=== PATIENT | male | born 1940 | race Caucasian/White ===

== ENCOUNTER 2018-10-03 15:38 | Outpatient (REF) | payer MEDICARE, BC, SELFPAY ==
[2018-10-03 18:56] LABS: HCT 35.5 % (40.0-50.0); HGB 12.1 g/dL (13.5-17.5); Mean Corp. HGB Concentration 34.1 g/dL (32.0-36.0); Mean Corpuscular Hemoglobin 33.5 pg (27.0-33.0); Mean Corpuscular Volume 98.3 fL (80-95); Mean Platelet Volume 10.4 fL (8.0-11.0); Platelet Count 195 x1000/uL (130-400); RBC 3.61 m/cumm (4.50-6.00); White Blood Cell Count 4.87 k/cumm (4.4-10.8)
[2018-10-03 20:27] LABS: ALT 27 U/L (12-78); AST 29 U/L (15-37); Albumin 4.1 g/dL (3.4-5.0); Alkaline Phosphatase 66 U/L (46-116); Anion Gap 7.9 mmol/L (3-11); BUN 5 mg/dL (7-18); Bilirubin, Total 0.5 mg/dL (0.2-1.0); CO2 28.1 mmol/L (21.0-32.0); CREATININE 0.54 mg/dL (0.70-1.30); Calcium 8.7 mg/dL (8.5-10.1); Chloride 101 mmol/L (98-107); Glucose 89 mg/dL (70-100); Potassium 4.4 mmol/L (3.5-5.1); Sodium 137 mmol/L (136-145); TSH (W/Ref FT4) 1.87 uIU/mL (0.36-3.74); Total Protein 6.9 g/dL (6.4-8.2)
== END 2018-10-03 15:58 ==
LOC: NCHCN 15:38
PROVIDERS: PCP Nurse Practitioner Family; Visit Provider Nurse Practitioner Family
DX: R60.0 Localized edema (principal); I10 Essential (primary) hypertension; R06.09 Other forms of dyspnea
CPT/HCPCS: 80053; 85027; 84443

== ENCOUNTER 2018-10-16 19:08 | Outpatient (REF) | payer MEDICARE, BC, SELFPAY ==
[2018-10-16 19:02] LABS: Anion Gap 9.5 mmol/L (3-11); BUN 12 mg/dL (7-18); CO2 28.5 mmol/L (21.0-32.0); CREATININE 0.64 mg/dL (0.70-1.30); Chloride 99 mmol/L (98-107); Glucose 86 mg/dL (70-100); Potassium 4.1 mmol/L (3.5-5.1); Sodium 137 mmol/L (136-145)
== END 2018-10-16 19:28 ==
LOC: NCHCN 19:08
PROVIDERS: PCP Nurse Practitioner Family; Visit Provider Nurse Practitioner Family
DX: I10 Essential (primary) hypertension (principal); R06.09 Other forms of dyspnea; D64.9 Anemia, unspecified; R60.0 Localized edema
CPT/HCPCS: 80048

== ENCOUNTER 2018-11-14 15:06 | Outpatient (REF) | payer MEDICARE, BC, SELFPAY ==
[2018-11-14 18:50] LABS: Anion Gap 7.2 mmol/L (3-11); BUN 13 mg/dL (7-18); CO2 27.8 mmol/L (21.0-32.0); CREATININE 0.67 mg/dL (0.70-1.30); Calcium 8.9 mg/dL (8.5-10.1); Chloride 104 mmol/L (98-107); Glucose 90 mg/dL (70-100); Potassium 4.3 mmol/L (3.5-5.1); Sodium 139 mmol/L (136-145)
== END 2018-11-14 15:26 ==
LOC: NCHCN 15:06
PROVIDERS: PCP Nurse Practitioner Family; Visit Provider Nurse Practitioner Family
DX: R60.0 Localized edema (principal)
CPT/HCPCS: 80048

== ENCOUNTER 2019-01-09 03:58 | Inpatient (IN) | payer MEDICARE, BC, SELFPAY ==
[2019-01-09] VITALS (39 sets, daily range): BP systolic 96–150; BP diastolic 51–82; PULSE 72–91; RESP 12–36; TEMP 36.1–37.3; O2SAT 92–100
--- NOTE | 2019-01-09 04:14 | ED.GENADUL_ITS ---
Discharge Plan Disposition Patient Disposition: [facility] INPATIENT Condition: Good Discharge Details Chief Complaint: Orthopedic Clinical Impression: Laceration of left index finger, Closed fracture of fibula, proximal, left Primary Care Provider: Kp Tate ED Provider: Shashank Phelan Meds and New Rx's Prescriptions: No Action aspirin 325 MG tablet 325 mg PO DAILY RF: 0 lisinopril 5 MG tablet 5 mg PO DAILY RF: 0 ibuprofen 200 MG capsule 200 mg PO PRN PRNRF: 0 furosemide [Lasix] 20 mg Tablet 40 mg PO DAILY RF: 0 Medical Decision Making Patient presenting to ED with left index finger laceration and left lower extremity pain with inability to ambulate since a fall yesterday around noon. He denies head injury. There was no loss of consciousness. He has no chest pain or shortness of breath. Spine is cleared clinically. Significant edema to the lower extremities makes it difficult to evaluate. He seems to have okay range of motion of the knee and ankle but complains of pain when he tries to weight-bear. Laceration involves the dorsal aspect of the left index finger. It is a linear flap laceration. He is able to hold finger in extension against resistance without pain. Digital block done to the left finger. Wound irrigated out with a large amount of normal saline. No obvious joint or tendon involvement. Because wound has been open for 18+ hours it is close with 4-0 nylon #5 sutures with loose approximation to allow for drainage if infection sets in. Please see procedure note. X-rays ordered initially of left tib-fib, left foot and left hand. After I reviewed the left tib-fib I felt there was likely a proximal fibular head fracture and asked radiology to obtain left knee and left ankle. My review of all these x-rays are negative except for probable non-displaced fibular head fracture. Radiology is preliminary reading all films as negative. On exam of the patient he is tender to palpation with a bruise exactly where I have identified a fracture on x-ray. Patient is placed in a knee immobilizer. Laceration is covered with Xeroform and dressing and placed in splint to prevent him from flexing and disrupting the sutures. He is given a dose of Keflex. He also received tetanus booster. Case discussed with hospitalist. Patient will be admitted for PT eval, Ortho eval, home safety eval. HPI General Mode of arrival: EMS . Date/Time Provider Initiated Documentation: 01/09/19 04:14 . Limitations to Documentation: no limitations . Information obtained by: patient and RN notes reviewed . HPI Narrative: Patient presents to ED with complaint of ankle pain and inability to walk. Patient reports that he fell yesterday around noontime. He dragged himself back to the house. He has been unable to bear weight since. He has significant and chronic pitting edema of both legs so has not noticed swelling. However, anytime he tries to walk he develops pain and is unable to bear weight due to the pain in the ankle. He also sustained a laceration to his left index finger. He does not really know how he did that when he fell. He does not complain of hand pain. He did not strike his head. He had no loss of consciousness. He has no neck or back pain. He has no chest pain or shortness of breath. There was no syncope associated with the event. He has a history of unsteady gait and disequilibrium which is caused him to fall in the past. Related Data Home Medications Medication Instructions Recorded Confirmed aspirin 325 mg PO DAILY 09/30/12 01/09/19 lisinopril 5 mg PO DAILY 09/30/12 01/09/19 ibuprofen 200 mg PO PRN PRN 04/11/15 01/09/19 furosemide [Lasix] 40 mg PO DAILY 01/09/19 01/09/19 Allergies Allergy/AdvReac Type Severity Reaction Status Date / Time No Known Allergies Allergy Unverified 01/09/19 04:11 General Stated Complaint: Orthopedic DELILAH: 3 Review of Systems Narrative: 12/04 Review of Systems completed and is negative except as stated above in HPI (Systems reviewed: Const, Eyes, ENT, Resp, CV, GI, , MSK, Skin, Neuro) [facility] Medical History (Updated 01/09/19 @ 05:19 by Shashank Phelan MD) Hypertension (Chronic) Malignant melanoma (Inactive) Stroke Surgical History S/P hernia repair (Acute) Social History Smoking/Tobacco Use Status: Former Tobacco Use Alcohol Intake: current Alcohol Intake frequency: 3 or more drinks per day Alcohol type: wine and hard liquor Drug use: Never Substance use type: does not use Do you feel safe at home: Yes Do you feel safe in your relationship?: Yes Exam Narrative Exam Narrative: Vitals: Afebrile. Mildly elevated blood pressure otherwise normal vitals normal room air pulse ox. Const: WDWN elderly male in NAD. HEENT: NC/AT. Normal facial exam. Neck: Supple. Trachea midline. No c-spine tenderness. Lungs: Normal respiratory effort. Lungs are clear. No chest wall tenderness. Cor: RRR with systolic murmur. Good radial pulses. GI: Soft. NT/ND. No guarding or rebound. Back: No spinal tenderness. Neuro: A+O x 3. CN II - XII grossly in tact. Normal speech, strength and sensation. Ext: 4+ pitting edema bilateral LE. Normal ROM of the UE without pain. Left index finger with laceration and swelling, dorsal aspect at level of PIP. Able to extend without pain against resistance. Sensation in tact and cap refill in tact. Hip and knees with good ROM. Left ankle with some pain with ROM. No obvious deformity. Skin: Warm and dry. 3 cm lac to left index finger. Course Vital Signs Vital signs: Vital Signs Temperature 97.0 F L 01/09/19 04:00 Pulse 91 H 01/09/19 04:00 Respiratory Rate 20 01/09/19 04:00 Blood Pressure 145/80 H 01/09/19 04:00 Pulse Oximetry 100 01/09/19 04:00 Temperature 97.0 F L 01/09/19 04:00 Temperature Source Skin 01/09/19 04:00 Pulse 91 H 01/09/19 04:00 Respiratory Rate 20 01/09/19 04:00 Respiratory Effort 01/09/19 04:00 Blood Pressure 145/80 H 01/09/19 04:00 Blood Pressure Position Sitting 01/09/19 04:00 Pulse Oximetry 100 01/09/19 04:00 Oxygen Delivery Method Room Air 01/09/19 04:00 Oxygen Flow Rate 0 01/09/19 04:00 Pain Level 0 01/09/19 04:00 Comment 01/09/19 04:00 Procedures Laceration Laceration 1: Site: hand Side (If applicable): left Size (cm): 3 Description: linear Depth: simple, single layer Local Anesthetic: Lidocaine 1% Pre-repair: wound explored, irrigated extensively and deep structures intact Skin layer closed with: nylon Size (cm): 4-0 Number of sutures: 5 Nerve Block Nerve Block 1: Local Anesthetic: Lidocaine 1% Amount of anesthesia used (mL): 2.5 Side: left Nerve Blocks: digital Procedure Successful: Yes Patient Tolerated Procedure: well Complications: none
--- NOTE | 2019-01-09 04:27 | DI.RAD_ITS ---
EXAM: XR ANKLE LT COMPLETE INDICATION: trauma. COMPARISON: XR FOOT LT COMPLETE from 01/09/2019 XR TIB/FIB LT from 01/09/2019 TECHNIQUE: 2D digital imaging was performed. FINDINGS: Soft tissue swelling is seen around both malleoli. No fracture or ankle mortise widening is seen. T here is no talar dome defect. There is a plantar calcaneal spur. Soft tissue swelling is seen over the dorsum of the foot. No fracture or dislocation is seen. IMPRESSION: Soft tissue swelling. No evidence of fracture.
--- NOTE | 2019-01-09 04:27 | DI.RAD_ITS ---
EXAM: XR TIB/FIB LT INDICATION: trauma. COMPARISON: XR KNEE LT 1V from 01/09/2019 TECHNIQUE: 2D digital imaging was performed. FINDINGS: There is a nondisplaced fracture of the proximal fibula. There is adjacent soft tissue swelling. N o additional fractures are identified in tibia and fibula. The ankle is unremarkable as visualized. There is soft tissue swelling around the malleoli. There is no ankle mortise widening. IMPRESSION: Nondisplaced fracture of the proximal fibula.
--- NOTE | 2019-01-09 04:27 | DI.RAD_ITS ---
EXAM: XR HAND LT COMPLETE INDICATION: trauma. COMPARISON: No exams were available for comparison TECHNIQUE: 2D digital imaging was performed. FINDINGS: The fingers are not optimally profiled on the lateral view. There is some soft tissue swelling aroun d the index finger. No fracture, dislocation or foreign body is seen. IMPRESSION: Soft tissue swelling.
--- NOTE | 2019-01-09 04:34 | NUR.NOTE ---
Nursing Note: Patient was incontinent of urine. Wet undergarmets put into bag. Wallet and phone at bedside.
--- NOTE | 2019-01-09 05:33 | DI.RAD_ITS ---
EXAM: XR KNEE LT 1V INDICATION: trauma. COMPARISON: No exams were available for comparison TECHNIQUE: 2D digital imaging was performed. FINDINGS: There is prominent posterior soft tissue swelling at the level of the proximal tibia and fibula. The re is a nondisplaced fracture of the proximal fibula. No tibial or femoral fractures are seen. No j oint effusion is visible. The patella appears intact. Vascular calcifications are incidentally note d. IMPRESSION: Nondisplaced fracture of the proximal fibula.
[2019-01-09] MEDS: Tetanus & Diphtheria Tox,ADULT 0.5 ML VIAL IM (05:50)
--- NOTE | 2019-01-09 06:09 | DI.VRAD_ITS ---
Addendum created by Adam Johnson MD on 01/09/2019 7:14:18 AM EST Faint lucency in the proximal fibula. Faint fracture suspected Initial report created on 01/09/2019 6:09:05 AM EST PROCEDURE INFORMATION: Exam: XR Left Knee Exam date and time: 01/09/2019 5:49 AM Clinical history: 78 years old, male; Left; Patient HX: Knee pain, fell yesterday TECHNIQUE: Imaging protocol: XR Left knee. Views: 1 or 2 views. COMPARISON: CR XR TIB/FIB LT 01/09/2019 5:18 AM FINDINGS: Bones/joints: No acute fracture or dislocation Soft tissues: Vascular calcifications IMPRESSION: No acute fracture noted Dictated and Authenticated by: Adam Johnson MD. Ordering:HEATHER Encarnacion MD
--- NOTE | 2019-01-09 06:09 | DI.VRAD_ITS ---
PROCEDURE INFORMATION: Exam: XR Left Hand Exam date and time: 01/09/2019 5:50 AM Clinical history: 78 years old, male; Injury or trauma; Fall; Initial encounter; Injury date: 01/08/19; Injury details: Left index finger laceration and pain TECHNIQUE: Imaging protocol: XR Left hand. Views: 3 or more views. COMPARISON: No relevant prior studies available. FINDINGS: Bones/joints: No acute fracture or dislocation. Mild degenerative changes Soft tissues: Mild swelling of the second finger IMPRESSION: No acute fracture Mild swelling of the second finger Dictated and Authenticated by: Adam Johnson MD. Ordering:HEATHER Encarnacion MD
--- NOTE | 2019-01-09 06:09 | DI.VRAD_ITS ---
PROCEDURE INFORMATION: Exam: XR Left Tibia and Fibula Exam date and time: 01/09/2019 5:26 AM Clinical history: 78 years old, male; Lower leg; Left; Patient HX: Fell yesterday, pain TECHNIQUE: Imaging protocol: XR Left tibia and fibula. Views: 2 views. COMPARISON: No relevant prior studies available. FINDINGS: Bones/joints: No acute fracture or dislocation Soft tissues: Vascular calcifications IMPRESSION: No acute findings. Dictated and Authenticated by: Adam Johnson MD. Ordering:HEATHER Encarnacion MD
--- NOTE | 2019-01-09 06:09 | DI.VRAD_ITS ---
PROCEDURE INFORMATION: Exam: XR Left Foot Complete Exam date and time: 01/09/2019 5:50 AM Clinical history: 78 years old, male; Foot; Left; Patient HX: Fell yesterday, pain TECHNIQUE: Imaging protocol: XR Left foot. Views: 3 or more views. COMPARISON: No relevant prior studies available. FINDINGS: Bones/joints: No acute fracture or dislocation. Minimal calcaneal spur Soft tissues: Swelling over the dorsum of the foot IMPRESSION: No acute fracture noted Swelling over the dorsum of the foot Dictated and Authenticated by: Adam Johnson MD. Ordering:HEATHER Encarnacion MD
--- NOTE | 2019-01-09 06:11 | DI.VRAD_ITS ---
PROCEDURE INFORMATION: Exam: XR Left Ankle Exam date and time: 01/09/2019 5:49 AM Clinical history: 78 years old, male; Ankle; Left; Patient HX: Fall yesterday and pain TECHNIQUE: Imaging protocol: XR Left ankle. Views: 3 or more views. COMPARISON: CR XR FOOT LT COMPLETE 01/09/2019 5:36 AM FINDINGS: Bones/joints: No acute fracture or dislocation. Mild calcaneal spurring Soft tissues: Moderate/severe swelling IMPRESSION: No acute fracture Moderate/severe swelling Dictated and Authenticated by: Adam Johnson MD. Ordering:HEATHER Encarnacion MD
[2019-01-09] MEDS: Cephalexin 500 MG CAP PO ×3 (06:36→18:25)
--- NOTE | 2019-01-09 06:49 | NUR.NOTE ---
Nursing Note: Report to KEVIN Collier
--- NOTE | 2019-01-09 06:52 | W.PM.HP.N ---
Date of service: 01/09/19 Time of Service: 06:52 Assessment and Plan Assessment and plan (1) Fibula upper end fracture: Start date: 01/08/19 Status: Acute Assessment and plan: This is a 78-year-old gentleman who fell at home the day prior to admission injuring his left knee and left index finger. He lacerated left index finger which was repaired and will be placed on Keflex because of the time it was open prior to repair. Imaging was done and there may be a closed nondisplaced fracture of the proximal fibula but was not read by the radiologist. He has tenderness over the same area and was placed in a knee immobilizer. Consider orthopedic referral if needed but at least have physical therapy for assessment of safe ambulation with assistive device. Qualifiers: Encounter type: initial encounter Fracture morphology: unspecified fracture morphology Fracture type: closed Laterality: left Qualified Code(s): S82.832A - Other fracture of upper and lower end of left fibula, initial encounter for closed fracture (2) Hypertension: Status: Chronic Assessment and plan: Chronically on lisinopril and furosemide and will check for dehydration. He is slightly hypertensive but his pain in the ED. Qualifiers: Hypertension type: essential hypertension Qualified Code(s): I10 - Essential (primary) hypertension (3) Edema: Status: Chronic Assessment and plan: On Lasix chronically with continued pedal edema. Check for dehydration because of the prolonged time he was on the ground follow-up CPK. Qualifiers: Edema type: localized Qualified Code(s): R60.0 - Localized edema (4) Laceration of finger of left hand: Status: Acute Assessment and plan: Repaired in the ED and will be placed on Keflex for prophylaxis. Qualifiers: Encounter type: initial encounter Finger: index finger Damage to nail status: without damage Foreign body presence: without foreign body Qualified Code(s): S61.211A - Laceration without foreign body of left index finger without damage to nail, initial encounter History of Present Illness History of Present Illness Chief Complaint: Mechanical fall outside home injuring left hand and left leg Narrative: This is a 78-year-old gentleman who lives locally alone who fell outside his house at noon the day prior to presentation. He injured his left hand and left leg with a laceration of his left index finger. He was unable to bear weight on his left leg and crawled back to his house and was still not able to walk eventually calling for help and reported to the ED. Denies any injury to his head or loss of consciousness. He had no presyncopal symptoms. He is on lisinopril and Lasix for hypertension and pedal edema. He does have a history of an unsteady gait and disequilibrium but is not on medical therapy for this. He has fallen in the past because of this problem. 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 He is unkempt and is speaking very softly appears to have a dry mouth during our conversation. No labs were performed and is received no IV fluids in the ED. Vital signs have been stable. Also it was slightly up. He is uncomfortable with his left knee pain and is in a knee immobilizer, my exam. He was placed on Keflex because of his laceration of his index finger and having this exposed 4 hours prior to presentation. There were no signs of infection. He has had no fever. Review of Systems Narrative: 13 point review of systems otherwise unrevealing or stable. [facility] Medical History Hypertension (Chronic) Malignant melanoma (Inactive) Stroke Surgical History S/P hernia repair (Acute) Social History Smoking/Tobacco Use Status: Former Tobacco Use Alcohol Intake: current Alcohol Intake frequency: 3 or more drinks per day Alcohol type: wine and hard liquor Drug use: Never Substance use type: does not use Do you feel safe at home: Yes Do you feel safe in your relationship?: Yes Meds Home Medications and Allergies Home Medications Medication Instructions Recorded Confirmed Type aspirin 325 mg PO DAILY 09/30/12 01/09/19 History lisinopril 5 mg PO DAILY 09/30/12 01/09/19 History ibuprofen 200 mg PO PRN PRN 04/11/15 01/09/19 History furosemide [Lasix] 40 mg PO DAILY 01/09/19 01/09/19 History Allergies Allergy/AdvReac Type Severity Reaction Status Date / Time No Known Allergies Allergy Unverified 01/09/19 04:11 Exam Narrative Exam Narrative: General: Patient appears older than stated age and is thin and tall with marked pedal edema and unkempt skin with diffuse seborrheic keratoses which are hyperpigmented over his body. He is alert and oriented at least to person and place. He appears to be in no acute distress other than when seen in pain when his left leg is examined. His left index finger has been sutured for the laceration. HEENT: Normocephalic face atraumatic. Eyes with pupils equal and reactive to light symmetrically and extraocular movement intact with sclera anicteric. Oropharynx with dry oral mucosa and poor dentition with discoloration of both teeth intact. He does have dry mucous in his mouth. External ears are normal. External nose is normal. Neck: Supple without JVD. Back: Stooped posture without CVA tenderness. Heart: Regular rate and rhythm with no murmurs gallops appreciated. Lungs: Fair aeration with clear vesicular breath sounds and no adventitious sounds. Abdomen: Scaphoid contour, soft and nontender to palpation with no palpable hepatomegaly. Genitalia/rectal: Exam deferred. Extremities: 3-4+ edema over the feet. No cyanosis and nail changes especially of the feet. Fair capillary refill. Left index finger laceration is sutured and dry. Left knee is tender to palpation over the proximal fibula with some local 1+ pitting edema but no bruising. There is old blood over the left knee. Diffuse arthritic changes and decreased range of motion. Neuro: Patient has masklike facies but may be fatigued from the night. He speaks very softly with slight dysarthria. No focalizing motor deficits. Cranial nerves II through XII grossly intact. Psych: Memory appear to be intact grossly with no abnormal thought processes. Results Imaging Imaging Studies: Exam(s) PROCEDURE INFORMATION: Exam: XR Left Tibia and Fibula Exam date and time: 01/09/2019 5:26 AM Clinical history: 78 years old, male; Lower leg; Left; Patient HX: Fell yesterday, pain TECHNIQUE: Imaging protocol: XR Left tibia and fibula. Views: 2 views. COMPARISON: No relevant prior studies available. FINDINGS: Bones/joints: No acute fracture or dislocation Soft tissues: Vascular calcifications IMPRESSION: No acute findings. Dictated and Authenticated by: Adam Johnson MD. Exam(s) PROCEDURE INFORMATION: Exam: XR Left Knee Exam date and time: 01/09/2019 5:49 AM Clinical history: 78 years old, male; Left; Patient HX: Knee pain, fell yesterday TECHNIQUE: Imaging protocol: XR Left knee. Views: 1 or 2 views. COMPARISON: CR XR TIB/FIB LT 01/09/2019 5:18 AM FINDINGS: Bones/joints: No acute fracture or dislocation Soft tissues: Vascular calcifications IMPRESSION: No acute fracture noted Dictated and Authenticated by: Adam Johnson MD. Exam(s) PROCEDURE INFORMATION: Exam: XR Left Foot Complete Exam date and time: 01/09/2019 5:50 AM Clinical history: 78 years old, male; Foot; Left; Patient HX: Fell yesterday, pain TECHNIQUE: Imaging protocol: XR Left foot. Views: 3 or more views. COMPARISON: No relevant prior studies available. FINDINGS: Bones/joints: No acute fracture or dislocation. Minimal calcaneal spur Soft tissues: Swelling over the dorsum of the foot IMPRESSION: No acute fracture noted Swelling over the dorsum of the foot Dictated and Authenticated by: Adam Johnson MD. Exam(s) PROCEDURE INFORMATION: Exam: XR Left Ankle Exam date and time: 01/09/2019 5:49 AM Clinical history: 78 years old, male; Ankle; Left; Patient HX: Fall yesterday and pain TECHNIQUE: Imaging protocol: XR Left ankle. Views: 3 or more views. COMPARISON: CR XR FOOT LT COMPLETE 01/09/2019 5:36 AM FINDINGS: Bones/joints: No acute fracture or dislocation. Mild calcaneal spurring Soft tissues: Moderate/severe swelling IMPRESSION: No acute fracture Moderate/severe swelling Dictated and Authenticated by: Adam Johnson MD. Exam(s) PROCEDURE INFORMATION: Exam: XR Left Hand Exam date and time: 01/09/2019 5:50 AM Clinical history: 78 years old, male; Injury or trauma; Fall; Initial encounter; Injury date: 01/08/19; Injury details: Left index finger laceration and pain TECHNIQUE: Imaging protocol: XR Left hand. Views: 3 or more views. COMPARISON: No relevant prior studies available. FINDINGS: Bones/joints: No acute fracture or dislocation. Mild degenerative changes Soft tissues: Mild swelling of the second finger IMPRESSION: No acute fracture Mild swelling of the second finger Dictated and Authenticated by: Adam Johnson MD. Labs Result diagrams: 01/09/19 06:58 01/09/19 06:58 Last Vital Signs Temp 36.1 C L 01/09/19 04:00 Pulse 91 H 01/09/19 04:00 Resp 20 01/09/19 04:00 BP 145/80 H 01/09/19 04:00 Pulse Ox 100 01/09/19 04:00
[2019-01-09 07:52] LABS: HCT 31.7 % (40.0-50.0); HGB 10.5 g/dL (13.5-17.5); Mean Corp. HGB Concentration 33.1 g/dL (32.0-36.0); Mean Corpuscular Volume 99.7 fL (80-95); Mean Platelet Volume 9.3 fL (8.0-11.0); Platelet Count 185 x1000/uL (130-400); RBC 3.18 m/cumm (4.50-6.00); RBC Distribution Width 12.5 % (11.8-14.1); White Blood Cell Count 7.35 k/cumm (4.4-10.8)
[2019-01-09 08:00] LABS: INR 1.5 (0.9-1.1)
--- NOTE | 2019-01-09 08:09 | PT.INNT ---
Date of service: 01/09/19 Time of Service: 08:09 PT Notes Patient is originally referred for PT to assess for appropriate assistive device for discharge. Patient was admitted to inpatient upon arrival of this PT for evlaution at the ED. Patient will be seen as soon as another referral under acute care level is received and after orthopedic consultation is done in order to determine orthopedic recommendation for WB to L LE in light of patient's closed fracture of the L fibula. Thank you very much for this referral. Guerita Zaragoza PT, DPT, CLT [facility]
[2019-01-09 08:18] LABS: ALT 24 U/L (16-63); AST 36 U/L (15-37); Albumin 3.4 g/dL (3.4-5.0); Alkaline Phosphatase 53 U/L (46-116); Anion Gap 9.9 mmol/L (3-11); BUN 18 mg/dL (7-18); Bilirubin, Total 0.7 mg/dL (0.2-1.0); CO2 24.1 mmol/L (21.0-32.0); CREATININE 0.68 mg/dL (0.70-1.30); Calcium 8.4 mg/dL (8.5-10.1); Chloride 106 mmol/L (98-107); Glucose 120 mg/dL (70-100); Magnesium 2.1 mg/dL (1.8-2.4); Potassium 3.7 mmol/L (3.5-5.1); Sodium 140 mmol/L (136-145); TSH (W/Ref FT4) 2.81 uIU/mL (0.36-3.74); Total Protein 6.4 g/dL (6.4-8.2)
[2019-01-09 08:24] LABS: Troponin I 0.64 ng/mL (0.00-0.06)
[2019-01-09 08:38] LABS: Creatine Kinase 423 U/L (39-308)
[2019-01-09] MEDS: Lisinopril 5 MG TAB PO (08:46)
[2019-01-09] MEDS: Furosemide 40 MG TAB PO (08:46)
[2019-01-09] MEDS: Aspirin 325 MG TAB PO (08:46)
[2019-01-09 08:57] LABS: Calculated LDL 68 mg/dL; Cholesterol 112 mg/dL (50-200); HDL Cholesterol 37 mg/dL (40-60); Triglyceride 37 mg/dL (30-150)
--- NOTE | 2019-01-09 10:03 | DI.US_ITS ---
APPROVED REPORT EXAM: Comprehensive 2D, Doppler, and color-flow Echocardiogram Patient Location: In-Patient Pattern Changer: [facility]fania Carter [facility] ([facility] Rhythm: NSR Indications: elevated troponin. Conclusion This study is technically limited Left Ventricle : Left ventricle is to normal diastolic diameter. The left ventricular systolic functi on appears normal. There is normal LV segmental wall motion. LVEF is 55-60%. The left ventricular zuly stolic function is normal. Right Ventricle : The right ventricle is normal size. The right ventricular systolic function appears normal. Atria : The left atrium size is normal. The right atrium size is normal. Aortic Valve : The Aortic valve is sclerotic. Aortic valve is probably trileaflet. There is no aortic valvular stenosis. Trace aortic regurgitation. Mitral Valve : The mitral valve is thickened but opens well. Moderate mitral regurgitation directed p osteriorly. No evidence of mitral valve stenosis. Tricuspid Valve : The tricuspid valve leaflets are thickened mildly. Mild to moderate tricuspid regur gitation. 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 IVC is dilated, but collapses >50% with inspiration. Estimated RVSP is 20-28 mmHg. There is no prior echocardiogram available for comparison. Wall motion Left Ventricle Left ventricle is to normal diastolic diameter. The left ventricular systolic function appears normal . There is normal left ventricular wall thickness, with mild mid septal thinning There is normal LV s egmental wall motion. The left ventricular diastolic function is normal. LVEF is 55-60%. Right Ventricle The right ventricle is normal size. The right ventricular systolic function appears normal. Atria The left atrium size is normal. The right atrium size is normal. Aortic Valve The Aortic valve is sclerotic. Aortic valve is probably trileaflet. There is no aortic valvular steno sis. Trace aortic regurgitation. Mitral Valve The mitral valve is thickened but opens well. No evidence of mitral valve stenosis. Moderate mitral r egurgitation directed posteriorly. Tricuspid Valve The tricuspid valve leaflets are thickened mildly. Mild to moderate tricuspid regurgitation. Pulmonic Valve Pulmonic valve is not well visualized. Trivial pulmonic regurgitation. Great Vessels Aortic root is dilated (4.1cm). IVC is dilated, but collapses >50% with inspiration. Estimated RVSP i s 20-28 mmHg. Pericardium There is no pericardial effusion. 2D Dimensions IVSd 0.70 cm M: 0.6-1.2 LV EDV A2C 52.20 mL PWd 0.95 cm M: 0.6 - 1.2 LV EDV A4C 65.40 mL LVDd 5.80 cm M: 4.2 - 5.8 LA Volume Index A4C 27.36 mL/m2 LVDs 4.05 cm M: 2.5 - 4.0 LA Area A4C 19.37 cm2 Aortic Root 4.10 cm M: 3.1 - 3.7 EF AP4 58.56 % RA Area A4C 8.43 cm2 EF AP2 56.32 % LVOT 2.15 cm (M/F) 1.5-2.5 EF BP 54.53 % Ascending Aorta 3.50 cm M: 2.6 - 3.4 LVEF (Teich) 57.00 % LVEF (Hand's) 54.53 % M: 52 - 72 LV Volume 44.01 mL M: 62 - 150 LV Volume Index 22.80 mL/m2 M: 34 - 74 FS 30.35 % LV Diastology E/A Ratio 0.8 MED E' 0.05 (>0.07 m/s) LV E/e MED 9.95 (<14) LAT E' 0.11 (>0.1 m/s) LV E/e LAT 4.90 (<14) Aortic Valve LVOT Area 3.69 cm2 LVOT Peak Ilir. 0.85 m/s LVOT Mean Ilir. 0.58 m/s LVOT Peak Gr. 3.00 mmHg ELIZABETH Vmax Index 1.34 cm2/m2 LVOT Mean Gr. 1.55 mmHg LVOT VTI 0.15 m ELIZABETH Mean Ilir. Index 1.13 cm2/m2 AoV Peak Ilir. 1.25 (0.5-1.3 m/s) AoV Mean Ilir. 0.98 m/s AO Peak GR. 6.22 mmHg AO Mean GR. 4.05 (<5 mmHg) AO VTI 0.24 (0.18-0.25 m) ELIZABETH (VTI) 2.77 (2.5-4.5 cm2) ELIZABETH (VTI) Index 1.43 cm/m2 Mitral Valve MV E Max Ilir. 0.54 (0.4-1.3 m/s) MV A Velocity 0.65 (0.4-1.3 m/s) E/A Ratio 0.78 MV Decel. Time 268.65 (160-240 msec) MV PHT 77.92 msec MVA PHT 2.80 cm2 Tricuspid Valve TR P. Velocity 2.28 m/s TV Regurg Vmax 2.28 m/s RAP Estimate 8.00 mmHg RVSP 29.00 mmHg TR P. Gradient 20.80 mmHg
[2019-01-09] MEDS: Heparin 5,000 UNITS/ML VIAL 5000 UNITS SC (10:10)
--- NOTE | 2019-01-09 10:57 | INITIAL_ITS ---
Care Management Initial Assess REASON FOR HOSPITALIZATION:: Closed Non-Displaced Fibular Fracture PAST MEDICAL HISTORY/PAST SURGICAL HISTORY:: Hypertension, localized edema, Malignant melanoma, Stroke, S/P hernia repair, laceration of left index finger, closed fracture of fibula, proximal-left PREVIOUS FUNCTIONAL STATUS/SOCIAL/FAMILY SUPPORTS:: Husam resides alone in [place], [place]. His friend, Francisca is his main support person and resides in [place], [place]. 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 CURRENT FUNCTIONAL STATUS:: Husma was lying in bed, on his side. He was resting after being transferred to the ICU. Has patient been provided with information about the portal?: Yes Did the patient sign up for the portal?: No CODE STATUS:: Full Code INSURANCE COVERAGE / FINANCIAL ISSUES:: /BS. Medicare CURRENT HOME/COMMUNITY SERVICES/EQUIPMENT:: No services or equipment at this time. PRIMARY CARE PHYSICIAN:: Gama Posadas POTENTIAL DISCHARGE NEEDS:: Review discharge instructions, discuss Ask Me Three. PATIENT/FAMILY EDUCATION NEEDS:: Review discharge instructions, discuss Ask Me Three. ANTICIPATED BARRIERS TO DISCHARGE:: None identified. TRANSPORTATION:: TBD by mobility and disposition. PLAN:: Husam was transferred to the ICU and continues to be closely monitored at this time. CM continues to follow.
--- NOTE | 2019-01-09 10:59 | NUR.NOTE ---
Pt transferred from [facility] to ICU for closer monitoring. Nursing Note:
[2019-01-09] MEDS: Omnipaque 350 MG/ML 100 ML BTL IJ (11:44)
--- NOTE | 2019-01-09 11:55 | DI.CT_ITS ---
EXAM: CT CHEST PE CTA CLINICAL HISTORY: Elevated troponin, suspected PE TECHNIQUE: 68 cc of Omnipaque [address] angiography was performed with multi-slice acquisition and multi-planar and/or 3D reconstruc tions. COMPARISON: BARIUM SWALLOW W PA LAT CXR from 08/23/2013 FINDINGS: The pulmonary arteries are well opacified with IV contrast. No pulmonary artery filling defects are s een. There is dilatation of the main pulmonary arteries which could indicate pulmonary hypertension. The aorta is normal in diameter and shows mild tortuosity. There is no evidence of dissection. There is mild coronary artery calcification. No pleural or pericardial effusions or adenopathy is seen. The re are minimal dependent changes at the lung bases. No infiltrates, pulmonary nodules or bronchiectas is are seen. There are no significant emphysematous or fibrotic changes. The visualized portions of t he liver and spleen are unremarkable. There is a large cyst at the upper pole of the left kidney. The adrenals appear normal. There is a large quantity of stool seen in the visualized portions of the co aleks. IMPRESSION: No evidence of pulmonary emboli or other acute abnormality.
--- NOTE | 2019-01-09 12:06 | W.CARDCONSUL ---
Date of service: 01/09/19 Time of Service: 12:06 Assessment and Plan Assessment and plan (1) Elevated troponin: Status: Acute Assessment and plan: 1. Elevated troponin: Is a little hard to tease out whether or not this is a non-STEMI and of itself were associated with his fall. Given that the patient had minimal symptoms and was feeling well in the morning I think it is more consistent with a type II non-STEMI secondary to recent fall and muscle damage from that. I discussed with the patient the possibility of going for catheterization should his troponin continue to elevate or should he develop symptoms but he was very clear stating he would not want any intervention. I also offered the option of an outpatient stress test with the patient said he did not want any more stress test as he had one in the past. Echocardiogram today shows no wall motion abnormalities ?I think is reasonable to do 48 hours of heparin. ?Patient should continue on aspirin and Lasix for his lower extremity edema. ?We should hold off on any more aggressive measures at this point Please contact cardiology with any future questions History of Present Illness History of Present Illness Chief Complaint: elevated troponin Narrative: Mr. Del Rio is a 78-year-old male with past medical history significant for hypertension, stroke and lower extremity edema who presented to the ED after a mechanical fall. According to the patient and review of notes he fell yesterday afternoon around noontime and then after spending some time on the ground and dragged himself back into his home. He has been unable to bear weight due to ankle pain. In the emergency room he was found to have a hand laceration as well as a left tib-fib fracture. The patient was admitted for an orthopedic consult. As part of the admission he had labs for concern of rhabdomyolysis and was found to have an elevated troponin. Cardiology has been consulted for an elevated troponin in the setting of a ground-level fall. Upon further conversation with the patient he states that he normally walks about 1/4 mile each day down his driveway. Yesterday he was feeling a little better than usual so he decided to walk further. On his way back home he said he got off balance and fell. He is noted that he has had a lot of difficulty with balance for the past few months and feels as though this was more of the same. He denied lightheadedness dizziness. He had no chest pain or significant shortness of breath. He is unclear if he had any diaphoresis or abdominal pain. Review of Systems All systems reviewed & are unremarkable except as noted in HPI and below PFSH Medical History Hypertension (Chronic) Malignant melanoma (Inactive) Stroke Surgical History S/P hernia repair (Acute) Social History Smoking/Tobacco Use Status: Former Tobacco Use Alcohol Intake: current Alcohol Intake frequency: 3 or more drinks per day Alcohol type: wine and hard liquor Drug use: Never Substance use type: does not use Do you feel safe at home: Yes Do you feel safe in your relationship?: Yes Exam Const General: comfortable and no acute distress HENMT Head: normocephalic and atraumatic Eyes General: appearance normal, both eyes and all related structures Resp Effort & Inspection: normal respiratory effort Auscultation: clear to auscultation bilaterally Cardio Jugular venous pressure: no JVD Palpation: normal PMI Rate: regular rate Rhythm: regular rhythm Heart Sounds: S1 normal and murmur systolic early and II/ GI Palpation: soft Auscultation: normoactive bowel sounds Skin General skin exam: no rashes or lesions noted Extrem General: normal to inspection and edema Laterality: bilateral (2+) Psych Appearance: grossly normal Results Last Vital Signs Temp 37.3 C 01/09/19 11:09 Pulse 76 01/09/19 11:09 Resp 12 01/09/19 11:09 BP 109/64 01/09/19 11:09 Pulse Ox 97 01/09/19 11:09 Labs Result diagrams: 01/09/19 07:32 01/09/19 07:32 Labs: Laboratory Results - last 24 hr 01/09/19 01/09/19 01/09/19 07:32 07:32 07:32 WBC 7.35 RBC 3.18 L Hgb 10.5 L Hct 31.7 L MCV 99.7 H MCH 33.0 MCHC 33.1 RDW 12.5 Plt Count 185 MPV 9.3 PT 15.0 H INR 1.5 H Sodium 140 Potassium 3.7 Chloride 106 Carbon Dioxide 24.1 Anion Gap 9.9 BUN 18 Creatinine 0.68 L Estimated GFR/1.73 m2 >= 60.00 Glucose 120 H Calcium 8.4 L Magnesium 2.1 Total Bilirubin 0.7 AST 36 ALT 24 Alkaline Phosphatase 53 Creatine Kinase Troponin I 0.64 H* Total Protein 6.4 Albumin 3.4 Triglycerides 37 Total Cholesterol 112 LDL Cholesterol, Calc 68 HDL Cholesterol 37 L TSH 2.81 01/09/19 07:32 WBC RBC Hgb Hct MCV MCH MCHC RDW Plt Count MPV PT INR Sodium Potassium Chloride Carbon Dioxide Anion Gap BUN Creatinine Estimated GFR/1.73 m2 Glucose Calcium Magnesium Total Bilirubin AST ALT Alkaline Phosphatase Creatine Kinase 423 H Troponin I Total Protein Albumin Triglycerides Total Cholesterol LDL Cholesterol, Calc HDL Cholesterol TSH EKG interpretations EKG EKG results cardiology: sinus rhythm, normal axis, normal QRS, normal ST/T and no acute changes
[2019-01-09] MEDS: Normal Saline Flush 10 ML SYR (12:36)
[2019-01-09 12:55] LABS: Troponin I 1.05 ng/mL (0.00-0.06)
[2019-01-09 13:37] LABS: PTT Activated 25.1 sec (21.0-31.4)
--- NOTE | 2019-01-09 14:02 | W.PM.PROGNOT ---
Date of Service Date of service: 01/09/19 Time of Service: 14:02 Assessment and Plan Assessment and plan (1) NSTEMI (non-ST elevated myocardial infarction): Status: Acute Assessment and plan: Troponin still rising. Started on asa, heparin gtt. LDL at goal. Continue to trend troponin. Monitor in ICU where he was transferred. DNR/DNI; refuses cardiac catheterization. (2) Fibula upper end fracture: Status: Acute Assessment and plan: Consult orthopedics Qualifiers: Encounter type: initial encounter Fracture type: closed Fracture morphology: unspecified fracture morphology Laterality: left Qualified Code(s): S82.832A - Other fracture of upper and lower end of left fibula, initial encounter for closed fracture (3) Laceration of finger of left hand: Status: Acute Assessment and plan: repaired in ED. Continue keflex Qualifiers: Encounter type: initial encounter Finger: index finger Damage to nail status: without damage Foreign body presence: without foreign body Qualified Code(s): S61.211A - Laceration without foreign body of left index finger without damage to nail, initial encounter (4) Hypertension: Status: Chronic Assessment and plan: BP's on the lower side here. Qualifiers: Hypertension type: essential hypertension Qualified Code(s): I10 - Essential (primary) hypertension (5) Ambulatory dysfunction: Status: Acute Assessment and plan: PT/OT consults once the troponin starts to go down (6) DVT prophylaxis: Status: Acute Assessment and plan: Therapeutic heparin gtt (7) Discharge planning issues: Status: Acute Assessment and plan: DNR/DNI Keep in ICU Total Critical Care time 1 hour Subjective Subjective Interval history since last seen: Mr Del Rio was found to have an elevated troponin. It has gone up from 0.64 to 1.05. Denies every feeling chest pain, but did feel weak, less steady, nauseated, and had no appetite yesterday after increasing his activity all of a sudden threefold yesterday. He denies these symptoms at this time. His EKG does not show any ischemia; his telemetry does not reveal any arrhythmias so far. CTA negative for a PE. He is having an NSTEMI. Seen by cardiology - while there was an initial concern for this troponin elevation to possibly be due to leg muscle injury, I think that is less likely with only minimally elevated CPK. Heparinization initiated. The patient is DNR/DNI, refuses cardiac cath or stress testing. Exam Narrative Exam Narrative: General: very pleasant elderly male, visibly dehydrated, A&OX3, comfortable in bed HEENT: EOMI, Dry MM Heart: RRR Lungs: CTAB anteriorly GI: abdomen is soft, nontender, nondistended Extremities: LLE in a knee immobilizer Objective Objective Clinical Data: Abnormal lab results 01/09/19 01/09/19 01/09/19 Range/Units 07:32 07:32 07:32 RBC 3.18 L (4.50-6.00) m/cumm Hgb 10.5 L (13.5-17.5) g/dL Hct 31.7 L (40.0-50.0) % MCV 99.7 H (80-95) fL PT 15.0 H (9.3-11.0) sec INR 1.5 H (0.9-1.1) Creatinine 0.68 L (0.70-1.30) mg/dL Glucose 120 H (70-100) mg/dL Calcium 8.4 L (8.5-10.1) mg/dL Creatine Kinase (39-308) U/L Troponin I 0.64 H* (0.00-0.06) ng/mL HDL Cholesterol 37 L (40-60) mg/dL 01/09/19 01/09/19 Range/Units 07:32 12:17 RBC (4.50-6.00) m/cumm Hgb (13.5-17.5) g/dL Hct (40.0-50.0) % MCV (80-95) fL PT (9.3-11.0) sec INR (0.9-1.1) Creatinine (0.70-1.30) mg/dL Glucose (70-100) mg/dL Calcium (8.5-10.1) mg/dL Creatine Kinase 423 H (39-308) U/L Troponin I 1.05 H* (0.00-0.06) ng/mL HDL Cholesterol (40-60) mg/dL Vital Signs Temperature 37.3 C 01/09/19 11:09 Temperature Source Temporal Artery Scan 01/09/19 11:09 Pulse 76 01/09/19 11:09 Pulse Rhythm Regular 01/09/19 10:14 Pulse 73 01/09/19 07:50 Respiratory Rate 12 01/09/19 11:09 Respiratory Effort 01/09/19 11:09 Respiratory Depth Normal 01/09/19 11:09 Respiratory Pattern Normal 01/09/19 11:09 Blood Pressure 109/64 01/09/19 11:09 Blood Pressure Mean 79 01/09/19 11:09 Blood Pressure Position Supine 01/09/19 11:09 Pulse Oximetry 99 01/09/19 13:11 Oxygen Delivery Method Room Air 01/09/19 13:11 Oxygen Flow Rate 0 01/09/19 13:11 Pain Level 0 01/09/19 11:09 Comment 01/09/19 04:00 Intake & Output 01/08/19 01/09/19 01/09/19 23:59 11:59 23:59 Intake Total Output Total 950 / 950 Balance -940 / -940 Weight 76 kg Intake: IV Output: Urine 950 / 950 Other: Urine Color Yellow Urine Appearance Clear Voiding Methods Urinal Laboratory Results WBC 7.35 k/cumm (4.4-10.8) 01/09/19 07:32 RBC 3.18 m/cumm (4.50-6.00) L 01/09/19 07:32 Hgb 10.5 g/dL (13.5-17.5) L 01/09/19 07:32 Hct 31.7 % (40.0-50.0) L 01/09/19 07:32 MCV 99.7 fL (80-95) H 01/09/19 07:32 MCH 33.0 pg (27.0-33.0) 01/09/19 07:32 MCHC 33.1 g/dL (32.0-36.0) 01/09/19 07:32 RDW 12.5 % (11.8-14.1) 01/09/19 07:32 Plt Count 185 x1000/uL (130-400) 01/09/19 07:32 MPV 9.3 fL (8.0-11.0) 01/09/19 07:32 PT 15.0 sec (9.3-11.0) H 01/09/19 07:32 INR 1.5 (0.9-1.1) H 01/09/19 07:32 APTT 25.1 sec (21.0-31.4) 01/09/19 13:10 Sodium 140 mmol/L (136-145) 01/09/19 07:32 Potassium 3.7 mmol/L (3.5-5.1) 01/09/19 07:32 Chloride 106 mmol/L (98-107) 01/09/19 07:32 Carbon Dioxide 24.1 mmol/L (21.0-32.0) 01/09/19 07:32 Anion Gap 9.9 mmol/L (3-11) 01/09/19 07:32 BUN 18 mg/dL (7-18) 01/09/19 07:32 Creatinine 0.68 mg/dL (0.70-1.30) L 01/09/19 07:32 Estimated GFR/1.73 m2 >= 60.00 (mL/min/1.73m2) 01/09/19 07:32 Glucose 120 mg/dL (70-100) H 01/09/19 07:32 Calcium 8.4 mg/dL (8.5-10.1) L 01/09/19 07:32 Magnesium 2.1 mg/dL (1.8-2.4) 01/09/19 07:32 Total Bilirubin 0.7 mg/dL (0.2-1.0) 01/09/19 07:32 AST 36 U/L (15-37) 01/09/19 07:32 ALT 24 U/L (16-63) 01/09/19 07:32 Alkaline Phosphatase 53 U/L (46-116) 01/09/19 07:32 Creatine Kinase 423 U/L (39-308) H 01/09/19 07:32 Troponin I 1.05 ng/Ml (0.00-0.06) H* 01/09/19 12:17 Total Protein 6.4 g/dL (6.4-8.2) 01/09/19 07:32 Albumin 3.4 g/dL (3.4-5.0) 01/09/19 07:32 Triglycerides 37 mg/dL (30-150) 01/09/19 07:32 Total Cholesterol 112 mg/dL (50-200) 01/09/19 07:32 LDL Cholesterol, Calc 68 mg/dL 01/09/19 07:32 HDL Cholesterol 37 mg/dL (40-60) L 01/09/19 07:32 TSH 2.81 uIU/mL (0.36-3.74) 01/09/19 07:32 CTA: No evidence of pulmonary emboli or other acute abnormality. Echo; Left Ventricle : Left ventricle is to normal diastolic diameter. The left ventricular systolic function appears normal. There is normal LV segmental wall motion. LVEF is 55-60%. The left ventricular diastolic function is normal. Right Ventricle : The right ventricle is normal size. The right ventricular systolic function appears normal. Atria : The left atrium size is normal. The right atrium size is normal. Aortic Valve : The Aortic valve is sclerotic. Aortic valve is probably trileaflet. There is no aortic valvular stenosis. Trace aortic regurgitation. Mitral Valve : The mitral valve is thickened but opens well. Moderate mitral regurgitation directed posteriorly. No evidence of mitral valve stenosis. Tricuspid Valve : The tricuspid valve leaflets are thickened mildly. Mild to moderate tricuspid regurgitation. 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 IVC is dilated, but collapses >50% with inspiration. Estimated RVSP is 20-28 mmHg. There is no prior echocardiogram available for comparison.
--- NOTE | 2019-01-09 16:05 | IN_ITS ---
Date of service: 01/09/19 Time of Service: 04:05 PT Notes Physical Therapy Inpatient Initial Evaluation Date: 01/09/2019 Referring Doctor: Feliberto Verdugo MD; Nena Ac MD PT Orders: PT CONSULT: Limited Ability Precautions: Fall. Standard. WBAT on L LE with air cast fracture boot. Patient Profile/Admitting Diagnosis: Patient is a 78-year-old male with past medical history significant for CVA, hypertension, and lower extremity edema who presented to the ED on 01/09/2019 due to a mechanical fall outside his house. Patient is found to have laceration of L index finger and a closed proximal L fibular fracture. Dr. Verdugo ordered weight-bearing as tolerated on L LE with air cast fracture boot on. Dr. Melvin indicated a type II NSTEMI for which patient is being closely monitored in the ICU. PMHX: Medical History Hypertension (Chronic) Malignant melanoma (Inactive) Stroke Surgical History S/P hernia repair (Acute) Social History/Home Situation: Patient lives alone in a one-level home with 5 steps to enter and a rail on the left going up. He is independent with all aspects of ADLs and has managed to do them without any need for an adaptive equipment nor assistive ambulatory devices. Equipment Owned/DME: None Subjective: Patient states that he feels too tired and still is sad about how in this last fall he had, he was not able to get up. He indicates that his balance has not been good and he has fallen a few times prior to today but he states that he had been able to recover and had been able to stand back up. He likes to walk typically a distance of an 8th of a mile from his house regularly. He reports that yesterday, he had to drag himself back from the road where he fell back to his house an 8th of a mile away. When asked about whether somebody saw down on the road where he fell, he replies that said road is not well travelled so nobody was able to help him. He also said that he does not have an emergency medical doctor md/medical director. Objective: General Observation: Patient seen resting in bed. Telemetry monitoring in place. Stratton catheter in place. Dressing found covering L index finger. Air cast boot on L leg. Mental Status: Alert and oriented x 4 Pain: Considerable pain on L LE with WB, patient states it is more than 5/10 Vital Signs: WNL at time of evaluation ROM: Right Upper Extremity: Shoulder Flexion WFL. Shoulder abduction WFL. Elbow flexion WFL. Wrist flexion WFL. Opening and closing of hand WFL. Left Upper Extremity: Shoulder Flexion WFL. Shoulder abduction WFL. Elbow flexion WFL. Wrist flexion WFL. Opening and closing of hand WFL. Right Lower Extremity: Hip flexion WFL. Hip abduction WFL. Knee flexion WFL. Ankle dorsiflexion WFL. Ankle plantarflexion WFL. Left Lower Extremity: Hip flexion WFL. Hip abduction WFL. Knee flexion NT. Knee extension -30 degrees due to weight of boot and pain complaint. Ankle dorsiflexion NT. Ankle plantarflexion NT. Strength: Right Upper Extremity: Shoulder flexors 4/5. Shoulder abductors 4/5. Elbow flexors 4/5. Elbow extensors 4/5. Getterer strong. Left Upper Extremity: Shoulder flexors 4/5. Shoulder abductors 4/5. Elbow flexors 4/5. Elbow extensors 4/5. Getterer strong. Right Lower Extremity: Hip flexors 4-/5. Hip abductors 4-/5. Knee flexors 4-/5. Knee extensors 3+/5. Ankle dorsiflexors 4/5. Ankle plantarflexors 4/5. Left Lower Extremity: Hip flexors 4-/5. Hip abductors 4-/5. Knee flexors 3-/5 due to fracture boot and pain complaint. Knee extensors 3-/5. Ankle dorsiflexors NT. Ankle plantarflexors NT. Sensation: Intact as to pain and pressure on bilateral lower extremities. Bed Mobility/Transfers: Rolling minimal assist Supine to sit minimal assist Sit to supine minimal assist Sit to stand minimal assist Stand to sit minimal assist Bed to chair minimal assist Chair to bed minimal assist Gait: Patient tolerated 3 sidesteps and 2 step backs just to transfer from bedside to bedside chair using FWW and minimal assist of PT. Patient was able to tolerate minimal weight bearing on L LE but reported considerable pain on the L Leg. He denies dizziness, headache, and chest pain when he sat on the edge of the bed and while doing bed to chair transfer. Dr. Ac recommended just doing a transfer as patient is just diagnosed with a NSTEMI. Level surface ambulation will be attempted tomorrow morning as soon as patient re-stabilizes. Balance: Static Sitting: Normal Dynamic Sitting: Normal Static Standing: Fair Dynamic Standing: Fair Special Tests: Mobility Limitations Standardized Measure [facility] AM-PAC 6 clicks Basic Mobility Inpatient Short Form: Raw Score: 18 CMS Score: 47% deficit Informed Consent/Education: Patient instructed in purpose of PT consult and plan of care. Assessment: Patient is a 78-year-old male with past medical history significant for CVA, hypertension, and lower extremity edema who presented to the ED on 01/09/2019 due to a mechanical fall outside his house. Patient is found to have laceration of L index finger and a closed proximal L fibular fracture. Dr. Verdugo ordered weight-bearing as tolerated on L LE with air cast fracture boot on. Dr. Melvin indicated a type II NSTEMI for which patient is being closely monitored in the ICU. Patient is pleasant and cooperative. He is agreeable to working with PT to regain his prior mobility level. He is also considering having an emergency alert device down the road. His prognosis for regaining PLOF is fair considering his cardiac status. he may benefit from a SNF placement in order to facilitate independent transfer and ambulation status. Patient presents with clinical signs and symptoms consistent with current/admitting diagnoses that have resulted to mobility limitations, gait instability, generalized weakness, and impairment of motor control as demonstrated by the following impairment level findings: 1. Decreased strength to B LE major muscle groups 2. Impaired standing balance 3. Impaired activity tolerance 4. Limitation of joint range of motion in L knee and ankle Impairments are contributing to the following functional limitations: 1. Dependent bed mobility skills 2. Increased dependence with transfers 3. Inability to safely ambulate without assistive device and physical assistance 4. Increase completion time for mobility ADL performance 5. Increased fall risk 6. Inability to negotiate steps alone safely Patient is assessed as a [id number] moderate complexity based on the following: History: Patient is a 78-year-old male with past medical history significant for CVA, hypertension, and lower extremity edema who presented to the ED on 01/09/2019 due to a mechanical fall outside his house. Patient is found to have laceration of L index finger and a closed proximal L fibular fracture. Dr. Verdugo ordered weight-bearing as tolerated on L LE with air cast fracture boot on. Dr. Melvin indicated a type II NSTEMI for which patient is being closely monitored in the ICU. Examination: Demonstrable impairment in strength, balance, and range of motion with underlying impairments and functional limitations as documented above Presentation:Evolving Decision Makin moderate complexity Goals: Goals X1 week 1. Supine-Sit independent 2. Sit-Supine independent 3. Sit-Stand independent 4. Stand-Sit independent 5. Bed-Chair independent 6. Chair-Bed independent 7. Independent gait on level surface with use of least restrictive device for at least 300 feet without report of pain nor dyspnea 8. Independent stair negotiation while holding onto bilateral rails for at least 10 steps without report of pain nor dyspnea 9. Independent with home exercise program 10. Good static and dynamic standing balance/tolerance Plan of Care/Treatment Plan: 1-2x/day, 7 days/week x 1 week. Plan of care has been reviewed with the [employer] providing the service under Physical Therapy direction. Initiate Physical Therapy intervention for strengthening, bed mobility, transfers, gait, stairs, balance training, use of assistive device. DISCHARGE RECOMMENDATIONS: Patient will benefit from jail facility placement in order to progress mobility level, strength, and balance in preparation for a safe discharge to home. TREATMENT CODE/TIME: 9716 2 x 30 minutes beginning at 4:05 PM. Thank you very much for this referral. Guerita Zaragoza PT, DPT, CLT [facility]
[2019-01-09 16:37] LABS: Troponin I 0.98 ng/Ml (<0.06)
[2019-01-09 18:56] LABS: PTT Activated 85.1 sec (21.0-31.4)
[2019-01-09] MEDS: Normal Saline 1,000 ML 125 ML IV (20:05)
--- NOTE | 2019-01-09 21:51 | OCONE_ITS ---
Date of service: 01/09/19 Time of Service: 15:51 History of Present Illness History of Present Illness Chief Complaint: Left Ankle and Leg Pain Narrative: Husam is a 78-year-old who I know from previous orthopedic injuries. He was going for a regular walk went farther than usual. He reports getting weak and as he was returning to his home he lost the strength and fell. He is unsure exactly what happened to the left leg but thinks that it got twisted underneath him. He had difficulty with ambulating and presented to the emergency department. He was diagnosed with notable swelling about bilateral lower extremities as well as pain about the left leg and a proximal fibular fracture. At the same time, he is also admitted for an active myocardial infarction with other poorly controlled medical conditions. He has not tried any blood on the leg since the time of the fall. He reports pain primarily level of the ankle but also occasionally with direct pressure to the lateral aspect of the left proximal leg. He denies numbness or tingling. He does report notable swelling which is slightly worsened from his baseline which still is usually quite swollen. Consults Consult date: 01/09/19 Requesting physician: Nena Ac Consult Reason Left fibula fracture Assessment and Plan Assessment and plan (1) Maison[place]uve fracture of left fibula: Status: Acute Assessment and plan: Husam is a 78-year-old who suffered likely a rotational injury to the left ankle which transmitted forces up through the leg and breaking the proximal fibula. This is a Maisonneuve fracture. This is usually an unstable injury and would require surgery but can be treated nonoperatively, especially given his medical co-morbidities and age. A stress view of the left ankle be beneficial to see how unstable this fracture truly is. Nevertheless, I do not think is a surgical candidate at this time. Therefore, I would continue to treat conservatively. I fitted him with a fracture walker boot. I did pick a much larger size than usual given his edema. Hopefully this will provide some stability and allow him to at least ambulate minimally. He will be able to be weightbearing as tolerated with assistive devices given his weakness and medical conditions I do not think he can be nonweightbearing. Physical therapy consult was placed. I will follow him while he is in the hospital. Qualifiers: Encounter type: initial encounter Fracture type: closed Fracture alignment: nondisplaced Qualified Code(s): S82.865A - Nondisplaced Matthew'molly fracture of left leg, initial encounter for closed fracture Review of Systems All systems reviewed & are unremarkable except as noted in HPI and below PFSH Medical History Edema (Chronic) Hypertension (Chronic) Malignant melanoma (Inactive) Stroke Surgical History S/P hernia repair (Acute) Social History Smoking/Tobacco Use Status: Former Tobacco Use Alcohol Intake: current Alcohol Intake frequency: 3 or more drinks per day Alcohol type: wine and hard liquor Drug use: Never Substance use type: does not use Do you feel safe at home: Yes Do you feel safe in your relationship?: Yes Exam Narrative Exam Narrative: Husam is laying in the hospital bed. His legs have significant edema from the level of the proximal leg distally. It is equal in both sides. He may have some slight increase in the left side when compared to the right side at the level of the ankle. There is notable pain to palpation of the lateral left ankle, and to a lesser extent the medial aspect. There is also pain to palpation of the proximal left fibula. Palpation of the knee is without pain. No effusion. Forced external rotation causes exquisite pain at the level of the ankle. Squeeze test is only mildly positive for pain. He is able to actively extend and flex great toe as well as dorsiflex and plantar flex ankle. Sensation is intact grossly about the superficial peroneal nerve, deep peroneal nerve, and tibial nerve, although overall slightly diminished per his report. The foot is warm and well-perfused with pulses are difficult to palpate with significant edema. Results Last Vital Signs Temp 37.0 C 01/10/19 03:56 Pulse 62 01/10/19 06:00 Resp 16 01/10/19 06:50 BP 109/54 L 01/10/19 06:00 Pulse Ox 96 01/10/19 06:50 Labs Result diagrams: 01/10/19 06:30 01/10/19 06:30 Labs: Laboratory Results - last 24 hr 01/09/19 01/09/19 01/09/19 07:32 07:32 07:32 WBC 7.35 RBC 3.18 L Hgb 10.5 L Hct 31.7 L MCV 99.7 H MCH 33.0 MCHC 33.1 RDW 12.5 Plt Count 185 MPV 9.3 PT 15.0 H INR 1.5 H APTT Sodium 140 Potassium 3.7 Chloride 106 Carbon Dioxide 24.1 Anion Gap 9.9 BUN 18 Creatinine 0.68 L Estimated GFR/1.73 m2 >= 60.00 Glucose 120 H Calcium 8.4 L Magnesium 2.1 Total Bilirubin 0.7 AST 36 ALT 24 Alkaline Phosphatase 53 Creatine Kinase Troponin I 0.64 H* Total Protein 6.4 Albumin 3.4 Triglycerides 37 Total Cholesterol 112 LDL Cholesterol, Calc 68 HDL Cholesterol 37 L TSH 2.81 Urine Color Urine Clarity Urine pH Ur Specific [place] Urine Protein Urine Ketones Urine Blood Urine Nitrite Urine Bilirubin Urine Urobilinogen Ur Leukocyte Esterase Urine Glucose 01/09/19 01/09/19 01/09/19 07:32 12:17 13:10 WBC RBC Hgb Hct MCV MCH MCHC RDW Plt Count MPV PT INR APTT 25.1 Sodium Potassium Chloride Carbon Dioxide Anion Gap BUN Creatinine Estimated GFR/1.73 m2 Glucose Calcium Magnesium Total Bilirubin AST ALT Alkaline Phosphatase Creatine Kinase 423 H Troponin I 1.05 H* Total Protein Albumin Triglycerides Total Cholesterol LDL Cholesterol, Calc HDL Cholesterol TSH Urine Color Urine Clarity Urine pH Ur Specific [place] Urine Protein Urine Ketones Urine Blood Urine Nitrite Urine Bilirubin Urine Urobilinogen Ur Leukocyte Esterase Urine Glucose 01/09/19 01/09/19 01/09/19 16:08 18:15 22:15 WBC RBC Hgb Hct MCV MCH MCHC RDW Plt Count MPV PT INR APTT 85.1 H* D Sodium Potassium Chloride Carbon Dioxide Anion Gap BUN Creatinine Estimated GFR/1.73 m2 Glucose Calcium Magnesium Total Bilirubin AST ALT Alkaline Phosphatase Creatine Kinase Troponin I 0.98 H* 0.66 H* Total Protein Albumin Triglycerides Total Cholesterol LDL Cholesterol, Calc HDL Cholesterol TSH Urine Color Urine Clarity Urine pH Ur Specific [place] Urine Protein Urine Ketones Urine Blood Urine Nitrite Urine Bilirubin Urine Urobilinogen Ur Leukocyte Esterase Urine Glucose 01/10/19 01/10/19 01/10/19 02:15 06:00 06:30 WBC RBC Hgb Hct MCV MCH MCHC RDW Plt Count MPV PT INR APTT 35.4 H D Sodium 140 Potassium 3.3 L Chloride 108 H Carbon Dioxide 24.8 Anion Gap 7.2 BUN 14 Creatinine 0.57 L Estimated GFR/1.73 m2 >= 60.00 Glucose 109 H Calcium 7.7 L Magnesium 2.0 Total Bilirubin AST ALT Alkaline Phosphatase Creatine Kinase 224 Troponin I 0.39 H* Total Protein Albumin Triglycerides Total Cholesterol LDL Cholesterol, Calc HDL Cholesterol TSH Urine Color Yellow Urine Clarity Clear Urine pH 6.0 Ur Specific [place] 1.015 Urine Protein Negative Urine Ketones Negative Urine Blood Negative Urine Nitrite Negative Urine Bilirubin Negative Urine Urobilinogen 0.2 Ur Leukocyte Esterase Negative Urine Glucose Negative 01/10/19 06:30 WBC 5.94 RBC 2.65 L Hgb 8.7 L Hct 26.6 L MCV 100.4 H MCH 32.8 MCHC 32.7 RDW 12.3 Plt Count 150 MPV 9.9 PT INR APTT Sodium Potassium Chloride Carbon Dioxide Anion Gap BUN Creatinine Estimated GFR/1.73 m2 Glucose Calcium Magnesium Total Bilirubin AST ALT Alkaline Phosphatase Creatine Kinase Troponin I Total Protein Albumin Triglycerides Total Cholesterol LDL Cholesterol, Calc HDL Cholesterol TSH Urine Color Urine Clarity Urine pH Ur Specific [place] Urine Protein Urine Ketones Urine Blood Urine Nitrite Urine Bilirubin Urine Urobilinogen Ur Leukocyte Esterase Urine Glucose Imaging Imaging Studies: X-ray of the left tibia and fibula as well as knee demonstrates a oblique fracture of the proximal left fibula. There is no displacement. X-ray of the left ankle shows well-preserved mortise space. There is no frac ture of the ankle. There is no tibiotalar arthritis. There is no mortise widening.
[2019-01-09 22:48] LABS: Troponin I 0.66 ng/Ml (<0.06)
--- NOTE | 2019-01-09 23:52 | NUR.NOTE ---
1700-Dr. Ac called and notified that pt had a left ac bleed from an IV falling out. Came to the ICU with Dr Leo and dressing changed and an ice bag placed over site. Pt also noted to have a large bruise to right lower abd surrounded by edema. Dr. Ac ordered it to be marked with a pen and an ice bag over this site also. Both of these were done.
--- NOTE | 2019-01-09 23:55 | NUR.NOTE ---
1530-patient's left ac IV has fallen out and site is bleeding. site cleaned up, pressure held for 15 minutes and then a pressure dressing applied. 1620- patient is sitting in chair and has called to nurse to check the left ac site which is bleeding again. Pt cleaned up again, pressure applied and new dressing applied.
--- NOTE | 2019-01-09 23:57 | NUR.NOTE ---
2019-Dr. Montenegro called as PTT had been 85.1 and heparin gtt protocol that was ordered was for the PE/DVT. order changed by Dr. Montenegro to the ACS protocol and make changes according to the ptt.
[2019-01-10] VITALS (153 sets, daily range): BP systolic 68–155; BP diastolic 49–87; PULSE 62–97; RESP 9–34; TEMP 36.6–37; O2SAT 94–99
[2019-01-10] MEDS: Cephalexin 500 MG CAP PO ×4 (01:00→18:53)
[2019-01-10 02:25] LABS: PTT Activated 35.4 sec (21.0-31.4)
[2019-01-10] MEDS: Normal Saline 1,000 ML 125 ML IV (05:15)
[2019-01-10 07:01] LABS: HCT 26.6 % (40.0-50.0); HGB 8.7 g/dL (13.5-17.5); Mean Corp. HGB Concentration 32.7 g/dL (32.0-36.0); Mean Corpuscular Hemoglobin 32.8 pg (27.0-33.0); Mean Corpuscular Volume 100.4 fL (80-95); Mean Platelet Volume 9.9 fL (8.0-11.0); Platelet Count 150 x1000/uL (130-400); RBC 2.65 m/cumm (4.50-6.00); RBC Distribution Width 12.3 % (11.8-14.1); White Blood Cell Count 5.94 k/cumm (4.4-10.8)
[2019-01-10 07:03] LABS: Bilirubin Negative (Negative); Blood Negative (Negative); Clarity Clear (Clear); Glucose Negative (Negative); Ketones Negative (Negative); Leukocyte Esterase Negative (Negative); Nitrite Negative (Negative); Specific Gravity 1.015 (1.005-1.025); Urobilinogen 0.2 EU/dL (Up TO 0.2)
[2019-01-10 07:26] LABS: Anion Gap 7.2 mmol/L (3-11); BUN 14 mg/dL (7-18); CO2 24.8 mmol/L (21.0-32.0); CREATININE 0.57 mg/dL (0.70-1.30); Calcium 7.7 mg/dL (8.5-10.1); Chloride 108 mmol/L (98-107); Creatine Kinase 224 U/L (39-308); Glucose 109 mg/dL (74-106); Potassium 3.3 mmol/L (3.5-5.1); Sodium 140 mmol/L (136-145)
[2019-01-10 07:30] LABS: Troponin I 0.39 ng/Ml (<0.06)
--- NOTE | 2019-01-10 08:22 | W.PM.PROGNOT ---
Date of Service Date of service: 01/10/19 Time of Service: 16:23 Assessment and Plan Assessment and plan (1) NSTEMI (non-ST elevated myocardial infarction): Status: Acute Assessment and plan: Troponins turned around Continue asa, heparin gtt. LDL at goal. Will ask cardiology to revisit the patient. Refuses blood transfusion. Monitor in ICU. Consult palliative care. DNR/DNI; refuses cardiac catheterization. (2) Fibula upper end fracture: Status: Acute Assessment and plan: Placed in a walking boot. Continue PT/OT. Qualifiers: Encounter type: initial encounter Fracture type: closed Fracture morphology: unspecified fracture morphology Laterality: left Qualified Code(s): S82.832A - Other fracture of upper and lower end of left fibula, initial encounter for closed fracture (3) Laceration of finger of left hand: Status: Acute Assessment and plan: repaired in ED. Continue keflex Qualifiers: Encounter type: initial encounter Finger: index finger Damage to nail status: without damage Foreign body presence: without foreign body Qualified Code(s): S61.211A - Laceration without foreign body of left index finger without damage to nail, initial encounter (4) Hypertension: Status: Chronic Assessment and plan: BP's on the lower side here. Qualifiers: Hypertension type: essential hypertension Qualified Code(s): I10 - Essential (primary) hypertension (5) Ambulatory dysfunction: Status: Acute Assessment and plan: PT/OT would prefer SNF, but at a minimum would require home health PT/OT (6) DVT prophylaxis: Status: Acute Assessment and plan: Therapeutic heparin gtt (7) Discharge planning issues: Status: Acute Assessment and plan: DNR/DNI Keep in ICU Subjective Subjective Interval history since last seen: No Pain unless moves. A&Ox3. Specifically denies dizziness, chest pain, shortness of breath, nausea. Pain in the L ankle is controlled. No Arrhythmias on tele. 97% on RA. Hematoma on the abdomen is not getting any bigger. Refuses blood transfusion. States he does not believe he had a heart attack - but even if he did, he just does not think he needs it, even though he understands that it would increase stress on his heart if he is anemic. Would like to talk to the cable mock up assembler again tomorrow. Does not want to go to a SNF. Would like to go home tomorrow. Exam Narrative Exam Narrative: General: very pleasant elderly male, A&OX3, comfortable in bed, does not appear to be trusting what I have to say HEENT: EOMI, MMM Heart: RRR Lungs: CTAB GI: abdomen is soft, nontender, nondistended; RLQ hematoma not any bigger than yesterday evening. Extremities: BLE edema; LLL is in a walking boot Objective Objective Clinical Data: Abnormal lab results 01/09/19 01/09/19 01/09/19 Range/Units 07:32 07:32 12:17 RBC (4.50-6.00) m/cumm Hgb (13.5-17.5) g/dL Hct (40.0-50.0) % MCV (80-95) fL APTT (21.0-31.4) sec Potassium (3.5-5.1) mmol/L Chloride (98-107) mmol/L Creatinine 0.68 L (0.70-1.30) mg/dL Glucose 120 H (70-100) mg/dL Calcium 8.4 L (8.5-10.1) mg/dL Creatine Kinase 423 H (39-308) U/L Troponin I 0.64 H* 1.05 H* (0.00-0.06) ng/mL HDL Cholesterol 37 L (40-60) mg/dL 01/09/19 01/09/19 01/09/19 Range/Units 16:08 18:15 22:15 RBC (4.50-6.00) m/cumm Hgb (13.5-17.5) g/dL Hct (40.0-50.0) % MCV (80-95) fL APTT 85.1 H* D (21.0-31.4) sec Potassium (3.5-5.1) mmol/L Chloride (98-107) mmol/L Creatinine (0.70-1.30) mg/dL Glucose (70-100) mg/dL Calcium (8.5-10.1) mg/dL Creatine Kinase (39-308) U/L Troponin I 0.98 H* 0.66 H* (0.00-0.06) ng/mL HDL Cholesterol (40-60) mg/dL 01/10/19 01/10/19 01/10/19 Range/Units 02:15 06:30 06:30 RBC 2.65 L (4.50-6.00) m/cumm Hgb 8.7 L (13.5-17.5) g/dL Hct 26.6 L (40.0-50.0) % MCV 100.4 H (80-95) fL APTT 35.4 H D (21.0-31.4) sec Potassium 3.3 L (3.5-5.1) mmol/L Chloride 108 H (98-107) mmol/L Creatinine 0.57 L (0.70-1.30) mg/dL Glucose 109 H (70-100) mg/dL Calcium 7.7 L (8.5-10.1) mg/dL Creatine Kinase (39-308) U/L Troponin I 0.39 H* (0.00-0.06) ng/mL HDL Cholesterol (40-60) mg/dL Vital Signs Temperature 37.0 C 01/10/19 03:56 Temperature Source Tympanic 01/10/19 03:56 Pulse 62 01/10/19 06:00 Pulse Rhythm Regular 01/09/19 10:14 Pulse 63 01/10/19 06:50 Respiratory Rate 16 01/10/19 06:50 Respiratory Effort 01/10/19 03:56 Respiratory Depth Normal 01/10/19 03:56 Respiratory Pattern Normal 01/10/19 03:56 Blood Pressure 109/54 L 01/10/19 06:00 Blood Pressure Mean 68 01/10/19 06:00 Blood Pressure Position Supine 01/10/19 03:56 Pulse Oximetry 96 01/10/19 06:50 Oxygen Delivery Method Room Air 01/10/19 03:56 Oxygen Flow Rate 0 01/10/19 03:56 Pain Level 0 01/10/19 03:56 Comment 01/09/19 04:00 Intake & Output 01/09/19 01/09/19 01/10/19 11:59 23:59 11:59 Intake Total 440 / 450 1078.284 / 1078.284 Output Total 950 / 2150 1200 / 2150 350 / 350 Balance -940 / -1700 -760 / -1700 728.284 / 728.284 Weight 76 kg Intake: IV 1078.284 / 1078.284 Oral 440 / 440 Output: Urine 950 / 2150 1200 / 2150 350 / 350 Other: Urine Color Yellow Yellow Light Manisha Urine Appearance Clear Clear Clear Urine Odor None Strong Comment uses urinal without any trouble. uses urinal without assistance Voiding Methods Urinal Urinal Urinal Laboratory Results WBC 5.94 k/cumm (4.4-10.8) 01/10/19 06:30 RBC 2.65 m/cumm (4.50-6.00) L 01/10/19 06:30 Hgb 8.7 g/dL (13.5-17.5) L 01/10/19 06:30 Hct 26.6 % (40.0-50.0) L 01/10/19 06:30 MCV 100.4 fL (80-95) H 01/10/19 06:30 MCH 32.8 pg (27.0-33.0) 01/10/19 06:30 MCHC 32.7 g/dL (32.0-36.0) 01/10/19 06:30 RDW 12.3 % (11.8-14.1) 01/10/19 06:30 Plt Count 150 x1000/uL (130-400) 01/10/19 06:30 MPV 9.9 fL (8.0-11.0) 01/10/19 06:30 PT 15.0 sec (9.3-11.0) H 01/09/19 07:32 INR 1.5 (0.9-1.1) H 01/09/19 07:32 APTT 35.4 sec (21.0-31.4) H D 01/10/19 02:15 Sodium 140 mmol/L (136-145) 01/10/19 06:30 Potassium 3.3 mmol/L (3.5-5.1) L 01/10/19 06:30 Chloride 108 mmol/L (98-107) H 01/10/19 06:30 Carbon Dioxide 24.8 mmol/L (21.0-32.0) 01/10/19 06:30 Anion Gap 7.2 mmol/L (3-11) 01/10/19 06:30 BUN 14 mg/dL (7-18) 01/10/19 06:30 Creatinine 0.57 mg/dL (0.70-1.30) L 01/10/19 06:30 Estimated GFR/1.73 m2 >= 60.00 (mL/min/1.73m2) 01/10/19 06:30 Glucose 109 mg/dL (74-106) H 01/10/19 06:30 Calcium 7.7 mg/dL (8.5-10.1) L 01/10/19 06:30 Magnesium 2.0 mg/dL (1.8-2.4) 01/10/19 06:30 Total Bilirubin 0.7 mg/dL (0.2-1.0) 01/09/19 07:32 AST 36 U/L (15-37) 01/09/19 07:32 ALT 24 U/L (16-63) 01/09/19 07:32 Alkaline Phosphatase 53 U/L (46-116) 01/09/19 07:32 Creatine Kinase 224 U/L (39-308) 01/10/19 06:30 Troponin I 0.39 ng/Ml (<0.06) H* 01/10/19 06:30 Total Protein 6.4 g/dL (6.4-8.2) 01/09/19 07:32 Albumin 3.4 g/dL (3.4-5.0) 01/09/19 07:32 Triglycerides 37 mg/dL (30-150) 01/09/19 07:32 Total Cholesterol 112 mg/dL (50-200) 01/09/19 07:32 LDL Cholesterol, Calc 68 mg/dL 01/09/19 07:32 HDL Cholesterol 37 mg/dL (40-60) L 01/09/19 07:32 TSH 2.81 uIU/mL (0.36-3.74) 01/09/19 07:32 Urine Color Yellow (Yellow) 01/10/19 06:00 Urine Clarity Clear (Clear) 01/10/19 06:00 Urine pH 6.0 (5-8) 01/10/19 06:00 Ur Specific [place] 1.015 (1.005-1.025) 01/10/19 06:00 Urine Protein Negative mg/dL (Negative) 01/10/19 06:00 Urine Ketones Negative mg/dL (Negative) 01/10/19 06:00 Urine Blood Negative (Negative) 01/10/19 06:00 Urine Nitrite Negative (Negative) 01/10/19 06:00 Urine Bilirubin Negative (Negative) 01/10/19 06:00 Urine Urobilinogen 0.2 EU/dL (Up TO 0.2) 01/10/19 06:00 Ur Leukocyte Esterase Negative (Negative) 01/10/19 06:00 Urine Glucose Negative mg/dL (Negative) 01/10/19 06:00 Echo: Left Ventricle : Left ventricle is to normal diastolic diameter. The left ventricular systolic function appears normal. There is normal LV segmental wall motion. LVEF is 55-60%. The left ventricular diastolic function is normal. Right Ventricle : The right ventricle is normal size. The right ventricular systolic function appears normal. Atria : The left atrium size is normal. The right atrium size is normal. Aortic Valve : The Aortic valve is sclerotic. Aortic valve is probably trileaflet. There is no aortic valvular stenosis. Trace aortic regurgitation. Mitral Valve : The mitral valve is thickened but opens well. Moderate mitral regurgitation directed posteriorly. No evidence of mitral valve stenosis. Tricuspid Valve : The tricuspid valve leaflets are thickened mildly. Mild to moderate tricuspid regurgitation. 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 IVC is dilated, but collapses >50% with inspiration. Estimated RVSP is 20-28 mmHg. There is no prior echocardiogram available for comparison. CTA chest: No evidence of pulmonary emboli or other acute abnormality. Venous doppler: No evidence of DVT. CXR: No acute abnormality.
[2019-01-10] MEDS: Potassium Chloride 20 MEQ TABCR 40 MEQ PO (08:46)
[2019-01-10] MEDS: Aspirin E.C. 81 MG TABEC PO (08:46)
[2019-01-10 09:00] LABS: PTT Activated 42.3 sec (21.0-31.4)
--- NOTE | 2019-01-10 09:00 | DI.US_ITS ---
EXAM: US EXTREMITY VENOUS BI US EXTREMITY VENOUS BI CLINICAL HISTORY: edema BLE's, concern for DVTs. !Error TECHNIQUE: Lower extremity venous ultrasound performed using grayscale, color-flow, and spectral Dop pler analysis. COMPARISON: No exams were available for comparison FINDINGS: The common femoral, femoral and popliteal veins demonstrate normal compressibility, augmentation, and color Doppler. The posterior tibial veins are patent. The saphenous vein appears free of thrombus. No superficial thrombophlebitis is seen. No Zurita's cyst or hematoma is seen. Bilateral calf edema is noted. IMPRESSION: No evidence of DVT.
--- NOTE | 2019-01-10 09:20 | DI.RAD_ITS ---
EXAM: XR PORTABLE CHEST AP INDICATION: crackles L base. COMPARISON: CT CHEST PE CTA from 01/09/2019 TECHNIQUE: 2D digital imaging was performed. FINDINGS: Heart size is normal. The aorta is tortuous. Leads overlie the chest. There is minimal linear atel ectasis or scarring at the left lung base. The lungs are otherwise clear. IMPRESSION: No acute abnormality.
[2019-01-10 10:49] LABS: Iron 32 ug/dL (65-175); Total Iron Binding Capacity 233 ug/dL (250-450); Transferrin Sat 14 % (20-55)
[2019-01-10 11:14] LABS: Ferritin 109 ng/mL (26-388); Folate 7.1 ng/mL (8.6-20.0); Vitamin B12 353 pg/mL (193-986)
--- NOTE | 2019-01-10 12:17 | PHARADMIT ---
Addendum entered by Santos Zambrano III 01/12/19 16:57: Pharmacy Note Subjective Fell at home hurting L Hand and L Leg, his iss reported as unkempt. Diagnosed with NSTEMI with elevated troponins. He has refused treatemnts and workups. Objective VS-OK No Labs, Wgt-72.8 kg Assessment On Keflex for hand laceration. Plan CM working on improving his home situation with aids and community support. Original Note: Admission Pharmacy Clinical Review NSTEMI,CLOSED FIBULAR FRACTURE of ankle, s/p fall Code Status DNR/DNI Current Weight 76 kg Renally Cleared and Narrow Therapeutic Index Meds CrCl~81ml/min QTc Value / Action Taken n/a BP Control, Fever BP 120/59 Afebrile Pain zero Electrolytes reviewed K+ 3.3 (40meq po x1) Mag 2.0 DVT Prophylaxis Heparin infusion, ASA 81mg Opiate Usage / Scheduled Bowel Regimen Ordered none-yes bowel meds Plt/SCr for Heparin / Enoxaparin Plt 150 SCr 0.57 INR for Warfarin H/H stable, WBC/Bands H/H 8.7/26.6 (bleeding from IV site last evening...heparin drip paused, restarted) WBC 5.94 Antibiotic appropriateness Cephalexin-laceration of left hand finger repaired while in ED Cultures and Sensitivities n/a Surgical ABX d/c within 24 hr DM control / Insulin Dosing Heart Failure (Check EF%) (ELLE's, B-Block, Diuretics) Lisinopril started-then dc'd IV to PO Switch Home Meds Reviewed Home Meds Not Ordered Ibuprofen, Lisinopril, Furosemide Comments Troponin's positive but trending Ortho consult-may need surgical repair but treating conservatively for now w/fracture walking boot Chest xray-normal, Ultrasound to r/o DVT-no DVT
[2019-01-10] MEDS: Docusate Sodium 100 MG CAP PO (12:30)
[2019-01-10] MEDS: Polyethylene Glycol 3350 17 GM PACKET PO (12:30)
--- NOTE | 2019-01-10 12:38 | PT.INTREAT ---
Date of service: 01/10/19 Time of Service: 10:10 PT Notes Inpatient Physical Therapy Treatment Note [facility] Date: 01/10/2019 PRECAUTIONS: FAll. Standard. WBAT on L LE. SUBJECTIVE: Patient remains pleasant and cooperative. He states that he feels a bit better than he did yesterday. He denies headache, chest pains, and dizziness throughout. he asks whether he videotape recording engineer get a smaller boot as he feels that it is too heavy. OBJECTIVE: Patient is seen resting in bed. Telemetry monitoring continues to be in place. IV in the L UE. PAIN: [2/10 pain on the L Leg with WB. Bed Mobility/Transfers: Rolling CGA Supine to sit CGA Sit to supine CGA Sit to stand CGA Stand to sit CGA Bed to chair CGA Chair to bed CGA Gait: Patient tolerated 80 feet of level surface ambulation iniside the ICU using his FWW and CGA and IV pole management of this PT and wheelchair follow of nurse Espinoza. He denies dizziness, headache, and chest pain when he sat on the edge of the bed and while ambulation activity. He reports 2/10 pain on the L LE with WB. Cueing given for upright trunk positioning and overall safety. patient did not appear breathless after gait activity. Balance: Static Sitting: Normal Dynamic Sitting: Normal Static Standing: Fair Dynamic Standing: Fair THEREX: Seated LAQs and hip flexion x 10 reps without undue pain nor discomfort Assessment: Patient is a 78-year-old male with past medical history significant for CVA, hypertension, and lower extremity edema who presented to the ED on 01/09/2019 due to a mechanical fall outside his house. Patient is pleasant and cooperative. He is agreeable to working with PT to regain his prior mobility level. per nurse Espinoza, patient's troponin has began to decrease. He is also considering having an emergency alert device down the road. His prognosis for regaining PLOF is fair considering his cardiac status. He may benefit from a SNF placement in order to facilitate independent transfer and ambulation status. PLAN: Continue per PT POC TREATMENT CODE/TIME: 89160 x 18 minutes, 48554 x 17 minutes begining at 10:10 AM.
--- NOTE | 2019-01-10 16:10 | PT.INTREAT ---
Date of service: 01/10/19 Time of Service: 16:10 PT Notes Inpatient Physical Therapy Treatment Note [facility] Date: 01/10/2019 PRECAUTIONS: Fall, WBAT L SUBJECTIVE: Husam is agreeable to participating in PT. He is hopeful that he will be able to be discharged to home versus to rehab. OBJECTIVE: Patient is observed transferring and ambulating short distances within room, independently. Patient requires cueing to don walking boot on L and to use FWW for safety. PAIN: Patient c/o L LE pain with gait training BED MOBILITY/TRANSFERS: Sit-stand: SBA Stand-sit: SBA GAIT: Device: FWW Weight bearing: WBAT L Assist: SBA Distance: 80' x2 Deviation: Standing rest x1, slow jerry THEREX: Patient completed ankle pumping, LAQ, and hip flexion exercises, in a seated position, as per flow sheet. ASSESSMENT: Patient tolerated session with minimal c/o L LE pain with gait training. Patient was able to tolerate a progression in gait distance with FWW support and SBA. He would benefit from continued gait and transfer training, as well as strengthening for improved mobility and safety. PLAN: Continue with PT's POC TREATMENT CODE/TIME: 40 minutes; 73344 x2, 15083
[2019-01-11] VITALS (37 sets, daily range): BP systolic 100–138; BP diastolic 52–83; PULSE 53–81; RESP 14–27; TEMP 36.8–37.3; O2SAT 94–99
[2019-01-11] MEDS: Cephalexin 500 MG CAP PO ×4 (00:51→18:11)
[2019-01-11] MEDS: Normal Saline 1,000 ML 30 ML IV (00:55)
[2019-01-11 06:52] LABS: Absolute Basophil Count 0.02 k/cumm (0.0-0.2); Absolute Eosinophil Count 0.11 k/cumm (0.0-0.7); Absolute Lymphocyte Count 1.68 k/cumm (1.2-3.4); Absolute Monocyte Count 0.47 k/cumm (0.11-0.7); Absolute Neutrophil Count 2.54 k/cumm (1.2-6.7); Basophils % 0.4; Eosinophils % 2.3; HCT 26.3 % (40.0-50.0); HGB 8.7 g/dL (13.5-17.5); Lymphocytes % 34.9; Mean Corp. HGB Concentration 33.1 g/dL (32.0-36.0); Mean Corpuscular Hemoglobin 33.2 pg (27.0-33.0); Mean Corpuscular Volume 100.4 fL (80-95); Mean Platelet Volume 9.8 fL (8.0-11.0); Monocytes % 9.8; Neutrophils % 52.6; Platelet Count 158 x1000/uL (130-400); RBC 2.62 m/cumm (4.50-6.00); White Blood Cell Count 4.82 k/cumm (4.4-10.8)
[2019-01-11 06:54] LABS: Anion Gap 9.5 mmol/L (3-11); BUN 12 mg/dL (7-18); CO2 22.5 mmol/L (21.0-32.0); CREATININE 0.58 mg/dL (0.70-1.30); Calcium 8.2 mg/dL (8.5-10.1); Chloride 110 mmol/L (98-107); Glucose 102 mg/dL (74-106); Magnesium 2.1 mg/dL (1.8-2.4); Potassium 3.9 mmol/L (3.5-5.1); Sodium 142 mmol/L (136-145)
[2019-01-11 07:29] LABS: Anisocytosis 1+; Basophilic Stippling Present; Diff Comment RBC Morph Reviewed; Polychromasia Present
--- NOTE | 2019-01-11 08:17 | PGE_ITS ---
Date of Service Date of service: 01/11/19 Time of Service: 08:18 Assessment and Plan Assessment and plan (1) NSTEMI (non-ST elevated myocardial infarction): Status: Acute Assessment and plan: D/c heparin gtt, transition to aspirin. Add low dose statin and gary-i. Refuses blood transfusion. Ok to transfer out of ICU. Palliative care consulted. DNR/DNI; refuses cardiac catheterization. (2) Fibula upper end fracture: Status: Acute Assessment and plan: Placed in a walking boot. Continue PT/OT. Qualifiers: Encounter type: initial encounter Fracture type: closed Fracture morphology: unspecified fracture morphology Laterality: left Qualified Code(s): S82.832A - Other fracture of upper and lower end of left fibula, initial encounter for closed fracture (3) Laceration of finger of left hand: Status: Acute Assessment and plan: repaired in ED. Continue keflex Qualifiers: Encounter type: initial encounter Finger: index finger Damage to nail status: without damage Foreign body presence: without foreign body Qualified Code(s): S61.211A - Laceration without foreign body of left index finger without damage to nail, initial encounter (4) Hypertension: Status: Chronic Assessment and plan: BP's better - would add a small dose of gary-i. Qualifiers: Hypertension type: essential hypertension Qualified Code(s): I10 - Essential (primary) hypertension (5) Ambulatory dysfunction: Status: Acute Assessment and plan: The patient would like to go home with home health services, but we wonder if this is best for the patient. He would have to find someone to help plow his driveway, bring wood into the house, etc. PT/OT to work with him while he is here. (6) DVT prophylaxis: Status: Acute Assessment and plan: Switch to prophylactic heparin SC. (7) Discharge planning issues: Status: Acute Assessment and plan: DNR/DNI Transfer out of ICU Subjective Subjective Interval history since last seen: Denies dizziness, chest pain, shortness of breath, nausea, vomiting. No arrhythmias on tele. VSS. No pain. Still has edema - states that it is his chronic. Wants to go home, but agrees to stay through Tuesday to work with PT. Declines half-way. States he does not have anyone to help him with plowing his driveway or getting the wood into the house for heat. Exam Narrative Exam Narrative: General: very pleasant elderly male, A&OX3, sitting in a chair HEENT: EOMI, MMM Heart: RRR Lungs: CTAB GI: abdomen is soft, nontender, nondistended; RLQ hematoma not any bigger than yesterday evening. Extremities: BLE edema; LLL is in a walking boot Objective Objective Clinical Data: Abnormal lab results 01/10/19 01/10/19 01/10/19 Range/Units 06:30 06:30 08:30 RBC (4.50-6.00) m/cumm Hgb (13.5-17.5) g/dL Hct (40.0-50.0) % MCV (80-95) fL MCH (27.0-33.0) pg APTT 42.3 H (21.0-31.4) sec Potassium 3.3 L (3.5-5.1) mmol/L Chloride 108 H (98-107) mmol/L Creatinine 0.57 L (0.70-1.30) mg/dL Glucose 109 H (74-106) mg/dL Calcium 7.7 L (8.5-10.1) mg/dL Iron 32 L (65-175) ug/dL TIBC 233 L (250-450) ug/dL Transferrin % Sat 14 L (20-55) % Troponin I 0.39 H* (<0.06) ng/Ml Folate 7.1 L (8.6-20.0) ng/mL 01/11/19 01/11/19 Range/Units 06:20 06:20 RBC 2.62 L (4.50-6.00) m/cumm Hgb 8.7 L (13.5-17.5) g/dL Hct 26.3 L (40.0-50.0) % MCV 100.4 H (80-95) fL MCH 33.2 H (27.0-33.0) pg APTT (21.0-31.4) sec Potassium (3.5-5.1) mmol/L Chloride 110 H (98-107) mmol/L Creatinine 0.58 L (0.70-1.30) mg/dL Glucose (74-106) mg/dL Calcium 8.2 L (8.5-10.1) mg/dL Iron (65-175) ug/dL TIBC (250-450) ug/dL Transferrin % Sat (20-55) % Troponin I (<0.06) ng/Ml Folate (8.6-20.0) ng/mL Vital Signs Temperature 36.8 C 01/11/19 04:00 Temperature Source Temporal Artery Scan 01/11/19 04:00 Pulse 53 L 01/11/19 05:49 Pulse Rhythm Regular 01/09/19 10:14 Pulse 58 L 01/11/19 01:40 Respiratory Rate 17 01/11/19 06:00 Respiratory Effort 01/11/19 04:00 Respiratory Depth Normal 01/11/19 04:00 Respiratory Pattern Normal 01/11/19 04:00 Blood Pressure 100/52 L 01/11/19 05:49 Blood Pressure Mean 79 01/11/19 04:00 Blood Pressure Position Sitting 01/11/19 04:00 Pulse Oximetry 99 01/11/19 04:00 Oxygen Delivery Method Room Air 01/11/19 04:00 Oxygen Flow Rate 0 01/11/19 04:00 Pain Level 0 01/11/19 04:00 Comment 01/09/19 04:00 Intake & Output 01/10/19 01/10/19 01/11/19 11:59 23:59 11:59 Intake Total 2053.367 / 2676.200 622.833 / 2676.200 411.1 / 411.1 Output Total 1015 / 2765 1300 / 2765 1250 / 1250 Balance 1038.367 / -88.800 -677.167 / -88.800 -838.9 / -838.9 Weight 73 kg Intake: IV 1693.367 / 1996.200 302.833 / 1996.200 411.1 / 411.1 Oral 360 / 680 320 / 680 Output: Urine 1015 / 2765 1300 / 2765 1250 / 1250 Other: Urine Color Straw Yellow Yellow Urine Appearance Clear Clear Clear Urine Odor None Normal None Comment Voided 340 cc at this time. Trace protein, pH of 6.5, SG of 1.030 used urinal for total of 1300mls =4voids used urinal for total of 1300mls =4voids Voiding Methods Urinal Urinal Laboratory Results WBC 4.82 k/cumm (4.4-10.8) 01/11/19 06:20 RBC 2.62 m/cumm (4.50-6.00) L 01/11/19 06:20 Hgb 8.7 g/dL (13.5-17.5) L 01/11/19 06:20 Hct 26.3 % (40.0-50.0) L 01/11/19 06:20 MCV 100.4 fL (80-95) H 01/11/19 06:20 MCH 33.2 pg (27.0-33.0) H 01/11/19 06:20 MCHC 33.1 g/dL (32.0-36.0) 01/11/19 06:20 RDW 12.0 % (11.8-14.1) 01/11/19 06:20 Plt Count 158 x1000/uL (130-400) 01/11/19 06:20 MPV 9.8 fL (8.0-11.0) 01/11/19 06:20 Immature Gran % 0.0 01/11/19 06:20 Neutrophils % 52.6 01/11/19 06:20 Lymphocytes % 34.9 01/11/19 06:20 Monocytes % 9.8 01/11/19 06:20 Eosinophils % 2.3 01/11/19 06:20 Basophils % 0.4 01/11/19 06:20 Absolute Neutrophils 2.54 k/cumm (1.2-6.7) 01/11/19 06:20 Absolute Lymphocytes 1.68 k/cumm (1.2-3.4) 01/11/19 06:20 Absolute Monocytes 0.47 k/cumm (0.11-0.7) 01/11/19 06:20 Absolute Eosinophils 0.11 k/cumm (0.0-0.7) 01/11/19 06:20 Absolute Basophils 0.02 k/cumm (0.0-0.2) 01/11/19 06:20 Differential Comment Rbc morph reviewed 01/11/19 06:20 RBC Morphology See below 01/11/19 06:20 Polychromasia Present 01/11/19 06:20 Basophilic Stippling Present 01/11/19 06:20 Anisocytosis 1+ 01/11/19 06:20 PT 15.0 sec (9.3-11.0) H 01/09/19 07:32 INR 1.5 (0.9-1.1) H 01/09/19 07:32 APTT 31.0 sec (21.0-31.4) 01/11/19 06:20 Sodium 142 mmol/L (136-145) 01/11/19 06:20 Potassium 3.9 mmol/L (3.5-5.1) 01/11/19 06:20 Chloride 110 mmol/L (98-107) H 01/11/19 06:20 Carbon Dioxide 22.5 mmol/L (21.0-32.0) 01/11/19 06:20 Anion Gap 9.5 mmol/L (3-11) 01/11/19 06:20 BUN 12 mg/dL (7-18) 01/11/19 06:20 Creatinine 0.58 mg/dL (0.70-1.30) L 01/11/19 06:20 Estimated GFR/1.73 m2 >= 60.00 (mL/min/1.73m2) 01/11/19 06:20 Glucose 102 mg/dL (74-106) 01/11/19 06:20 Calcium 8.2 mg/dL (8.5-10.1) L 01/11/19 06:20 Magnesium 2.1 mg/dL (1.8-2.4) 01/11/19 06:20 Iron 32 ug/dL (65-175) L 01/10/19 06:30 TIBC 233 ug/dL (250-450) L 01/10/19 06:30 Transferrin % Sat 14 % (20-55) L 01/10/19 06:30 Ferritin 109 ng/mL (26-388) 01/10/19 06:30 Total Bilirubin 0.7 mg/dL (0.2-1.0) 01/09/19 07:32 AST 36 U/L (15-37) 01/09/19 07:32 ALT 24 U/L (16-63) 01/09/19 07:32 Alkaline Phosphatase 53 U/L (46-116) 01/09/19 07:32 Creatine Kinase 224 U/L (39-308) 01/10/19 06:30 Troponin I 0.39 ng/Ml (<0.06) H* 01/10/19 06:30 Total Protein 6.4 g/dL (6.4-8.2) 01/09/19 07:32 Albumin 3.4 g/dL (3.4-5.0) 01/09/19 07:32 Triglycerides 37 mg/dL (30-150) 01/09/19 07:32 Total Cholesterol 112 mg/dL (50-200) 01/09/19 07:32 LDL Cholesterol, Calc 68 mg/dL 01/09/19 07:32 HDL Cholesterol 37 mg/dL (40-60) L 01/09/19 07:32 Vitamin B12 353 pg/mL (193-986) 01/10/19 06:30 Folate 7.1 ng/mL (8.6-20.0) L 01/10/19 06:30 TSH 2.81 uIU/mL (0.36-3.74) 01/09/19 07:32 Urine Color Yellow (Yellow) 01/10/19 06:00 Urine Clarity Clear (Clear) 01/10/19 06:00 Urine pH 6.0 (5-8) 01/10/19 06:00 Ur Specific [place] 1.015 (1.005-1.025) 01/10/19 06:00 Urine Protein Negative mg/dL (Negative) 01/10/19 06:00 Urine Ketones Negative mg/dL (Negative) 01/10/19 06:00 Urine Blood Negative (Negative) 01/10/19 06:00 Urine Nitrite Negative (Negative) 01/10/19 06:00 Urine Bilirubin Negative (Negative) 01/10/19 06:00 Urine Urobilinogen 0.2 EU/dL (Up TO 0.2) 01/10/19 06:00 Ur Leukocyte Esterase Negative (Negative) 01/10/19 06:00 Urine Glucose Negative mg/dL (Negative) 01/10/19 06:00
[2019-01-11] MEDS: Cyanocobalamin 500 MCG TAB 1000 MCG PO (09:13)
[2019-01-11] MEDS: Aspirin E.C. 81 MG TABEC PO (09:13)
[2019-01-11] MEDS: Folic Acid 1 MG TAB PO (09:15)
[2019-01-11] MEDS: Normal Saline Flush 10 ML SYR (10:35)
[2019-01-11] MEDS: Normal Saline Flush 10 ML SYR IVP (12:30)
[2019-01-11] MEDS: Polyethylene Glycol 3350 17 GM PACKET PO (13:05)
--- NOTE | 2019-01-11 14:28 | PT.INTREAT ---
Date of service: 01/12/19 Time of Service: 08:29 PT Notes Inpatient Physical Therapy Treatment Note [facility] Date: 01/11/2019 PRECAUTIONS: Fall, WBAT L SUBJECTIVE: Husam is agreeable to participating in PT. Upon receiving a smaller walking boot, patient states that he will have an easier time pushing in the clutch in his Jeep when he's driving. He also continues to express interest in floor recovery training, stating that he will kneel on the floor while preparing his firewood, and would like to be able to get up from that position, without having to crawl to the nearest piece of furniture. OBJECTIVE: PAIN: Patient c/o minimal L LE discomfort with standing ther ex BED MOBILITY/TRANSFERS: Sit-stand: S Stand-sit: S GAIT: Device: FWW Weight bearing: WBAT L Assist: SBA Distance: 80' x4 THEREX: Patient completed a LE strengthening program, in a standing position, as per flow sheet. ASSESSMENT: Patient tolerated session with minimal c/o L LE discomfort with ther ex. Patient was able to tolerate a progression in gait distance with FWW support and SBA. He would benefit from continued gait and transfer training, as well as strengthening for improved mobility and safety. PLAN: Continue with PT's POC TREATMENT CODE/TIME: 40 minutes; [id number] x2, [id number]
--- NOTE | 2019-01-11 16:02 | CMPROGNOTE_ITS ---
- If Service Date Differs Date of service: 01/11/19 Time of Service: 16:02 Care Management Progress Note S/O: Husam was sitting up in bed when CM came to meet with him. He was pleasant and readily engaged in conversation. Husam stated that he needs help getting someone to plow his driveway and bring in his firewood. Husam is also asking for a walker and is considering [employer]. A referral was sent to [facility] in [place] for a walker but they are unable to fill the order right now as they have no walkers in stock. They are back-ordered. Husam also shared that he does not bather. He stated that it has been about 2 years since he bathed. His shower is broken so he stopped bathing. A: Waldemar is a 78 year old man admitted on 01/09/19 with a fractured fibula. P: PT has recommended that Husam go to a SNF for short term rehab but he is refusing to do so. He wants to go home with home health services. One of the barriers to this plan is that he has no one to plow his driveway or bring in firewood with which he heats his home. CM has contacted various community resources including [facility], [facility] and [facility] to explore options. CM will continue to follow and to support patient, family and discharge planning needs.
--- NOTE | 2019-01-11 17:15 | W.NUTCONSULT ---
Date of service: 01/11/19 Time of Service: 17:15 Nutritional Consult ASSESSMENT: Appreciate nutrition consult for Mr. Del Rio, 78 years, who is hospitalized with broken bone. He is medically managed for blood pressure and edema but takes minimal medications. BMI 23 Hemoglobin 8.7 Attempted to visit Mr. Del Rio twice today but he is unavailable and asked me to return. Mr. Del Rio is eating well 100% of his offered meals of beef, vegetable, starch with gravy, fruit tonight for supper. INTERVENTION: Will visit in the morning if he is available for further nutrition assessment. Time Spent in Nutritional Counseling and Treatment: 0 face to face
[2019-01-12] VITALS (30 sets, daily range): BP systolic 117–133; BP diastolic 63–73; PULSE 56–77; RESP 12–27; TEMP 36.4–37; O2SAT 94–100
[2019-01-12] MEDS: Cephalexin 500 MG CAP PO ×4 (06:25→23:28)
--- NOTE | 2019-01-12 08:16 | W.PM.PROGNOT ---
Date of Service Date of service: 01/12/19 Time of Service: 08:16 Assessment and Plan Assessment and plan (1) NSTEMI (non-ST elevated myocardial infarction): Status: Acute Assessment and plan: Continue asa and gary-i. Patient is refusing statin. Refuses blood transfusion. Palliative care consulted to clarify goals of care. DNR/DNI; refuses cardiac catheterization. Cleared for discharge home tomorrow (2) Fibula upper end fracture: Status: Acute Assessment and plan: Placed in a walking boot. Continue PT/OT. Currently walking with a cane - will likely be safe for discharge home tomorrow with home health nursing, PT, OT, [employer]EL[employer], ortho follow up. Qualifiers: Encounter type: initial encounter Fracture type: closed Fracture morphology: unspecified fracture morphology Laterality: left Qualified Code(s): S82.832A - Other fracture of upper and lower end of left fibula, initial encounter for closed fracture (3) Laceration of finger of left hand: Status: Acute Assessment and plan: repaired in ED. Continue keflex Qualifiers: Encounter type: initial encounter Finger: index finger Damage to nail status: without damage Foreign body presence: without foreign body Qualified Code(s): S61.211A - Laceration without foreign body of left index finger without damage to nail, initial encounter (4) Hypertension: Status: Chronic Assessment and plan: Continue low dose lisinopril. Qualifiers: Hypertension type: essential hypertension Qualified Code(s): I10 - Essential (primary) hypertension (5) Ambulatory dysfunction: Status: Acute Assessment and plan: The patient would like to go home with home health services. Care management is working to provide resources for plowing and help carry the wood into the house. (6) DVT prophylaxis: Status: Acute Assessment and plan: heparin SC. (7) Discharge planning issues: Status: Acute Assessment and plan: DNR/DNI Planned for discharge home tomorrow Subjective Subjective Interval history since last seen: Refusing atorvastatin and heparin SC with nursing; with me, agrees to SC heparin, but only until 18 hours prior to discharge. No pain, be that in the leg or his chest. Denies dizziness, shortness of breath, nausea, vomiting. A few PVCs overnight. In 1st degree block, [place] 0.22 Would like to go home tomorrow. Exam Narrative Exam Narrative: General: elderly male, A&OX3, sitting in a chair, looks to be in good spirits HEENT: EOMI, MMM Heart: RRR Lungs: CTAB GI: abdomen is soft, nontender, nondistended; RLQ hematoma appears much smaller than yesterday Extremities: BLE edema; LLL is in a walking boot Objective Objective Clinical Data: Vital Signs Temperature 36.4 C L 01/12/19 07:01 Temperature Source Temporal Artery Scan 01/12/19 07:01 Pulse 68 01/12/19 07:01 Pulse Rhythm Regular 01/12/19 05:27 Pulse 67 01/12/19 07:00 Respiratory Rate 21 01/12/19 07:01 Respiratory Effort Non-Labored 01/12/19 05:27 Respiratory Depth Normal 01/12/19 05:27 Respiratory Pattern Normal 01/12/19 05:27 Blood Pressure 121/73 01/12/19 07:01 Blood Pressure Mean 84 01/12/19 06:49 Blood Pressure Position Sitting 01/11/19 15:55 Pulse Oximetry 94 L 01/12/19 07:01 Oxygen Delivery Method Room Air 01/12/19 07:01 Oxygen Flow Rate 0 01/12/19 07:01 Pain Level 0 01/11/19 15:55 Comment 01/09/19 04:00 Intake & Output 01/11/19 01/11/19 01/12/19 11:59 23:59 11:59 Intake Total 816.117 / 0354.330 1260.925 / 1907.042 Output Total 1250 / 2850 1600 / 2850 850 / 850 Balance -433.883 / -942.958 -509.075 / -942.958 -850 / -850 Weight 73 kg 72.8 kg Intake: IV 456.117 / 467.042 10.925 / 467.042 Oral 360 / 1440 1080 / 1440 Output: Urine 1250 / 2850 1600 / 2850 850 / 850 Other: Urine Color Yellow Yellow Light Manisha Urine Appearance Clear Clear Clear Urine Odor None None None Comment used urinal for total of 1300mls =4voids Voided 400c this shift Stool Occult Blood Negative Stool Size Copious Stool Characteristics Formed Hard Black Voiding Methods Urinal Urinal Laboratory Results WBC 4.82 k/cumm (4.4-10.8) 01/11/19 06:20 RBC 2.62 m/cumm (4.50-6.00) L 01/11/19 06:20 Hgb 8.7 g/dL (13.5-17.5) L 01/11/19 06:20 Hct 26.3 % (40.0-50.0) L 01/11/19 06:20 MCV 100.4 fL (80-95) H 01/11/19 06:20 MCH 33.2 pg (27.0-33.0) H 01/11/19 06:20 MCHC 33.1 g/dL (32.0-36.0) 01/11/19 06:20 RDW 12.0 % (11.8-14.1) 01/11/19 06:20 Plt Count 158 x1000/uL (130-400) 01/11/19 06:20 MPV 9.8 fL (8.0-11.0) 01/11/19 06:20 Immature Gran % 0.0 01/11/19 06:20 Neutrophils % 52.6 01/11/19 06:20 Lymphocytes % 34.9 01/11/19 06:20 Monocytes % 9.8 01/11/19 06:20 Eosinophils % 2.3 01/11/19 06:20 Basophils % 0.4 01/11/19 06:20 Absolute Neutrophils 2.54 k/cumm (1.2-6.7) 01/11/19 06:20 Absolute Lymphocytes 1.68 k/cumm (1.2-3.4) 01/11/19 06:20 Absolute Monocytes 0.47 k/cumm (0.11-0.7) 01/11/19 06:20 Absolute Eosinophils 0.11 k/cumm (0.0-0.7) 01/11/19 06:20 Absolute Basophils 0.02 k/cumm (0.0-0.2) 01/11/19 06:20 Differential Comment Rbc morph reviewed 01/11/19 06:20 RBC Morphology See below 01/11/19 06:20 Polychromasia Present 01/11/19 06:20 Basophilic Stippling Present 01/11/19 06:20 Anisocytosis 1+ 01/11/19 06:20 PT 15.0 sec (9.3-11.0) H 01/09/19 07:32 INR 1.5 (0.9-1.1) H 01/09/19 07:32 APTT Cancelled 01/11/19 14:00 Sodium 142 mmol/L (136-145) 01/11/19 06:20 Potassium 3.9 mmol/L (3.5-5.1) 01/11/19 06:20 Chloride 110 mmol/L (98-107) H 01/11/19 06:20 Carbon Dioxide 22.5 mmol/L (21.0-32.0) 01/11/19 06:20 Anion Gap 9.5 mmol/L (3-11) 01/11/19 06:20 BUN 12 mg/dL (7-18) 01/11/19 06:20 Creatinine 0.58 mg/dL (0.70-1.30) L 01/11/19 06:20 Estimated GFR/1.73 m2 >= 60.00 (mL/min/1.73m2) 01/11/19 06:20 Glucose 102 mg/dL (74-106) 01/11/19 06:20 Calcium 8.2 mg/dL (8.5-10.1) L 01/11/19 06:20 Magnesium 2.1 mg/dL (1.8-2.4) 01/11/19 06:20 Iron 32 ug/dL (65-175) L 01/10/19 06:30 TIBC 233 ug/dL (250-450) L 01/10/19 06:30 Transferrin % Sat 14 % (20-55) L 01/10/19 06:30 Ferritin 109 ng/mL (26-388) 01/10/19 06:30 Total Bilirubin 0.7 mg/dL (0.2-1.0) 01/09/19 07:32 AST 36 U/L (15-37) 01/09/19 07:32 ALT 24 U/L (16-63) 01/09/19 07:32 Alkaline Phosphatase 53 U/L (46-116) 01/09/19 07:32 Creatine Kinase 224 U/L (39-308) 01/10/19 06:30 Troponin I 0.39 ng/Ml (<0.06) H* 01/10/19 06:30 Total Protein 6.4 g/dL (6.4-8.2) 01/09/19 07:32 Albumin 3.4 g/dL (3.4-5.0) 01/09/19 07:32 Triglycerides 37 mg/dL (30-150) 01/09/19 07:32 Total Cholesterol 112 mg/dL (50-200) 01/09/19 07:32 LDL Cholesterol, Calc 68 mg/dL 01/09/19 07:32 HDL Cholesterol 37 mg/dL (40-60) L 01/09/19 07:32 Vitamin B12 353 pg/mL (193-986) 01/10/19 06:30 Folate 7.1 ng/mL (8.6-20.0) L 01/10/19 06:30 TSH 2.81 uIU/mL (0.36-3.74) 01/09/19 07:32 Urine Color Yellow (Yellow) 01/10/19 06:00 Urine Clarity Clear (Clear) 01/10/19 06:00 Urine pH 6.0 (5-8) 01/10/19 06:00 Ur Specific Hinckley 1.015 (1.005-1.025) 01/10/19 06:00 Urine Protein Negative mg/dL (Negative) 01/10/19 06:00 Urine Ketones Negative mg/dL (Negative) 01/10/19 06:00 Urine Blood Negative (Negative) 01/10/19 06:00 Urine Nitrite Negative (Negative) 01/10/19 06:00 Urine Bilirubin Negative (Negative) 01/10/19 06:00 Urine Urobilinogen 0.2 EU/dL (Up TO 0.2) 01/10/19 06:00 Ur Leukocyte Esterase Negative (Negative) 01/10/19 06:00 Urine Glucose Negative mg/dL (Negative) 01/10/19 06:00
[2019-01-12] MEDS: Aspirin E.C. 325 MG TABEC PO (08:56)
[2019-01-12] MEDS: Lisinopril 5 MG TAB 2.5 MG PO (08:56)
[2019-01-12] MEDS: Cyanocobalamin 500 MCG TAB 1000 MCG PO (08:56)
[2019-01-12] MEDS: Folic Acid 1 MG TAB PO (08:58)
--- NOTE | 2019-01-12 11:45 | PT.INTREAT ---
Date of service: 01/12/19 Time of Service: 11:45 PT Notes Inpatient Physical Therapy Treatment Note [facility] Date: 01/12/2019 PRECAUTIONS: Fall, WBAT L SUBJECTIVE: Husam reports that he is feeling good today. He is looking forward to going home, possibly tomorrow. OBJECTIVE: Patient issued post-op shoe for R LE, patient appears to demonstrate improved stability and mechanics with gait. PAIN: No c/o pain BED MOBILITY/TRANSFERS: Sit?supine: I with HOB flat Sit-stand: S Stand-sit: S Patient dons/doffs post-op shoe R and walking boot L independently. GAIT: Device: FWW in a.m.; SPC in p.m. Weight bearing: WBAT L Assist: S with FWW; SBA with SPC Distance: 150' + 250' in a.m.; 200' x2 in p.m. Deviation: Post-op shoe on R, walking boot on L THEREX: Patient completed a LE strengthening program, in a standing position with B UE support and SBA in a.m.; and in a supine position in p.m., as per flow sheet. Patient also completes functional sit to stand exercise at various heights without use of UEs in a.m. STAIRS: Up/down 3?4 and 2?6 using one rail/SPC and a step to pattern with supervision in both a.m. and p.m. ASSESSMENT: Patient tolerated session without complaint of pain or discomfort in a.m, and with minimal complaints of L calf discomfort in p.m. with gait and ther ex. Patient was able to tolerate a progression in gait distance with SPC support and SBA. He would benefit from continued gait training, as well as strengthening for improved mobility and safety. PLAN: Continue with PT's POC TREATMENT CODE/TIME: Session 1: 30 minutes; [id number], [id number] Session 2: 30 minutes; [id number], [id number]
--- NOTE | 2019-01-12 15:59 | CMPROGNOTE_ITS ---
- If Service Date Differs Date of service: 01/12/19 Time of Service: 15:59 Care Management Progress Note S/O: Husam was sitting up in bed when CM came to meet with him. He was pleasant and cooperative and agreeable to conversation. In talking with Husam, he feels he may now have a solution for plowing his driveway this winter. He also shared that he has enough wood at home for a couple of weeks and will reach out to [facility] [employer] for help with that when he needs it. Unfortunately there are no walkers available through [email or web address] or [employer]. CM did find an available walker at a local pharmacy and information was shared with Husam. A: Husam is a 78 year old man admitted on 01/09/19 with a fractured fibula. P: PT has recommended that Husam go to a SNF for short term rehab but he is refusing to do so. He wants to go home with home health services. A referral to [facility] was made by CM today. 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 CM will continue to follow and to support patient, family and discharge planning needs.
--- NOTE | 2019-01-12 16:13 | PCNE_ITS ---
Date of service: 01/12/19 Time of Service: 12:13 History of Present Illness History of Present Illness Chief Complaint: leg pain Narrative: From H and P: History of Present Illness History of Present Illness Chief Complaint: Mechanical fall outside home injuring left hand and left leg Narrative: This is a 78-year-old gentleman who lives locally alone who fell outside his house at noon the day prior to presentation. He injured his left hand and left leg with a laceration of his left index finger. He was unable to bear weight on his left leg and crawled back to his house and was still not able to walk eventually calling for help and reported to the ED. Denies any injury to his head or loss of consciousness. He had no presyncopal symptoms. He is on lisinopril and Lasix for hypertension and pedal edema. He does have a history of an unsteady gait and disequilibrium but is not on medical therapy for this. He has fallen in the past because of this problem. 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 He is unkempt and is speaking very softly appears to have a dry mouth during our conversation. No labs were performed and is received no IV fluids in the ED. Vital signs have been stable. Also it was slightly up. He is uncomfortable with his left knee pain and is in a knee immobilizer, my exam. He was placed on Keflex because of his laceration of his index finger and having this exposed 4 hours prior to presentation. There were no signs of infection. He has had no fever. Over the last 24 hours he was found to have a NSTEMI with troponins rising to 0.9. Echo showed valvular disease. CT scan did not show pulmonary embolus. He has refused many treatments and work-ups i.e. statin, consideration of cardiac catheterization etc. 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 He then submits this to scientific journals. He told me that his most recent submission was not accepted because they could find no one to peer review it. Research is important to him. He comes up with the ideas on his own and then things them through. As long as he can do his research he is content. He is living in [place], [place]. he has 2 children. One he saw 2 years ago. He s tates the other child does not want to see him. When he saw his daughter Diana, he remarks they both were in [place] and they ran into each other. He states that he is expecting a phone call about his mother's . She is on 89. He saw her last about 4 years ago. 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 He said he was subsequently fired because he did not pay attention to his close which he said were rarely washed, his body odor which does not bother him, and wearing cleats into the facility while seeing and talking with clients. He enjoyed this. 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 I asked what that was like and if he had experience with through this. He mentioned a woman named Savanna that he got to know over 6 months. And then he stated she she was gone. He feels that is just the absence of life. Life happens as a coincidence of molecules coming together. That humans are an accident in the universe. He described life in terms of molecules. He did not believe in free will. He states that he has no sadness when people . Consults Consult date: 01/12/19 Requesting physician: Nena Ac Assessment and Plan Assessment and plan (1) Ana Maríaneuve fracture of left fibula: Status: Acute Qualifiers: Encounter type: initial encounter Fracture alignment: nondisplaced Fracture type: closed Qualified Code(s): S82.865A - Nondisplaced Ana Maríaneuve's fracture of left leg, initial encounter for closed fracture (2) Edema: Status: Chronic Qualifiers: Edema type: localized Qualified Code(s): R60.0 - Localized edema (3) Ambulatory dysfunction: Status: Acute (4) NSTEMI (non-ST elevated myocardial infarction): Status: Acute Assessment and plan: He declines further cardiac work-up, statins, and senior care care. We did discuss CODE STATUS. He is a DNR/DNI. We did complete the COLST form and DPOA form. He does not want to be intubated, does want to be transferred to the hospital, is okay with a feeding tube if he can continue his research, okay with IV hydration if he can continue his research, and is fine with antibiotics that they will help him to get better. He stated his daughter Diana was the D GALE. He was not able to name a second person to be D POA His main concerns are his cat Brea, and whether Home Health would move his wood for him. I think it would be very difficult for him to manage at home. He insists on going home. Care management may want to call his daughter Diana at [phone]. She may have more insight into her father that might be helpful for further care. Thank you very much for this consult. I have let Husam know that he can call on me if he has decisions to be made that he is uncertain about or needs help. Review of Systems Narrative: He states he does not have pain at this time. He feels like he can get around just fine on his own. He is not interested in a lifeline, but would like something that could sense when he is so that people could come and help with his cat Brea. He feels fine and ready to be discharged. He has no chest pain. [facility] Medical History Edema (Chronic) Hypertension (Chronic) Malignant melanoma (Inactive) Stroke Surgical History S/P hernia repair (Acute) Social History Smoking/Tobacco Use Status: Former Tobacco Use Alcohol Intake: current Alcohol Intake frequency: 3 or more drinks per day Alcohol type: wine and hard liquor Drug use: Never Substance use type: does not use Do you feel safe at home: Yes Do you feel safe in your relationship?: Yes Exam Narrative Exam Narrative: He is sitting in his chair with an intense gaze. He does not smile but does thanks me for coming in and speaking with him. He speaks in complete sentences without any evidence of shortness of breath. Psych Appearance: other Speech and Movement: speech clear Affect: indifferent Attitude: cooperative Results Last Vital Signs Temp 98.4 F 01/12/19 09:04 Pulse 70 01/12/19 09:04 Resp 22 01/12/19 10:00 BP 133/67 01/12/19 09:04 Pulse Ox 95 01/12/19 09:24 Labs Result diagrams: 01/11/19 06:20 01/11/19 06:20
--- NOTE | 2019-01-12 16:40 | W.NUTCONSULT ---
Date of service: 01/12/19 Time of Service: 16:40 Nutritional Consult ASSESSMENT: Visited with Mr. Del Rio regarding his nutritional status. States he stopped running and was concerned he may be gaining weight. Weight change here since admission 3 days ago 3kg with probable fluid loss. BMI 23 Hemoglobin 12.1 on 10/03 today 8.7. BMR 1400 calories; estimated energy expenditure 1750 calories, protein needs 58 grams. He has been eating fish, starch, vegetables for meals and oatmeal for breakfast following a heart healthy meal plan. He does request soy sauce at each meal and is displeased with the 1 teaspoon we have allowed him. He states his blood pressure is actually low in the hospital. Eating 100% of nutritionally balanced meals including meat and fish despite his long history of eating vegan. At home he states he snack in the morning of nuts and raisins and a little dry oatmeal; has 3 oz spaghetti with dry beans cooked in pressure cooker and covered in ketchup. Supper he eats 2 slices whole grain bread with garlic, onions, cabbage, sardines and potato. He does not eat much fruit. States he is intentional with his food choices and does not wish to change at this time. He is unconcerned about his nutritional health. NUTRITIONAL DIAGNOSIS: Inadequate reported nutrient intake secondary to lack of variety of food choices as evidenced by low normal BMI for age and possibly causing low hemoglobin with likely secondary cause. INTERVENTION: Mr. Del Rio is in no distress regarding his nutritional status and wishes to continue his current food plan when he returns home. He is curious about changes in his iron status and this will be relayed to him. Encouraged him to increase meat sources as he wishes to boost iron intake. Approved 1.5 teaspoons soy sauce at 220mg per meal in addition to his entrees. PLAN: Will follow food intake and weight. Will visit prior to discharge to encourage increase in nutrient rich foods at home. Time Spent in Nutritional Counseling and Treatment: 15 minutes face to face
[2019-01-12] MEDS: Heparin 5,000 UNITS/ML VIAL 5000 UNITS SC (18:04)
[2019-01-12] MEDS: Normal Saline Flush 10 ML SYR IVP (23:28)
[2019-01-13] VITALS (10 sets, daily range): BP systolic 127–153; BP diastolic 74–92; PULSE 54–79; RESP 16–22; TEMP 36.5–36.7; O2SAT 97–100
--- NOTE | 2019-01-13 05:36 | NUR.NOTE ---
Patient requested that the tele wires, BP cuff, and 02 sat probe be left off as he plans to go home today. Pt states he understands the risk of not having the heart rhythm watched. Nursing Note:
[2019-01-13] MEDS: Cephalexin 500 MG CAP PO ×2 (05:54→11:58)
--- NOTE | 2019-01-13 08:35 | CMPROGNOTE_ITS ---
- If Service Date Differs Date of service: 01/13/19 Time of Service: 08:35 Care Management Progress Note S/O: Husam is sitting up in a chair when CM meets with him today. He is pleasant and easily engages in conversation. He talks about his fall at home that resulted in his being admitted to the hospital. He also talks about his cat, Brea, and how he needs to get home to care for her. He states he is feeling better and advises CM he is going home this afternoon. CM continues to follow. A: Husam is a 78 year old male admitted to [facility] on 01/09/2019 with a fractured fibula. P: Husam will be discharged home when medically cleared by provider. Physical therapy has recommended that Husam go to a SNF for short term rehab but he is refusing to do so and wants to go home with home health services. A referral was made to [facility] for nursing, PT, and OT yesterday. Husam advises his friend, Preeti, will transport him home when ready. He will stop by the [facility] on his way to his house to seed cone picker a walker, as none are available through [facility] or [facility]. CM continues to follow and to support discharge planning needs.
[2019-01-13] MEDS: Aspirin E.C. 325 MG TABEC PO (09:08)
[2019-01-13] MEDS: Cyanocobalamin 500 MCG TAB 1000 MCG PO (09:08)
[2019-01-13] MEDS: Lisinopril 5 MG TAB 2.5 MG PO (09:09)
[2019-01-13] MEDS: Folic Acid 1 MG TAB PO (09:09)
--- NOTE | 2019-01-13 10:04 | PT.INTREAT ---
Date of service: 01/13/19 Time of Service: 10:04 PT Notes 01/13/19 SUBJECTIVE: Pt stating he is doing okay today. He has minimal pain. He wants to go home today. OBJECTIVE: Supine in bed. Agreeable to PT. TRANSFERS Supine to sit: I Sit to stand: S Stand to sit: S GAIT: Boot on L, post op boot R. Able to don independently. Device: SPC Weight bearing: AT Assist: SBA Distance: 75'+100' Stairs: up and down 3-4, 2-6 1 rail, SPC, SBA ASSESSMENT: Tolerated functional mobility well including good safety awareness with stairs. PLAN: Contineu per POC. Treatment time: 25 minutes [id number] Yuly Berkowitz PTA Clinic location: [facility] [place], [place]
[2019-01-13 11:40] LABS: Abs Immature Grans 0.01 k/cumm (0.0-0.09); Absolute Basophil Count 0.01 k/cumm (0.0-0.2); Absolute Eosinophil Count 0.06 k/cumm (0.0-0.7); Absolute Lymphocyte Count 1.31 k/cumm (1.2-3.4); Absolute Monocyte Count 0.45 k/cumm (0.11-0.7); Absolute Neutrophil Count 2.89 k/cumm (1.2-6.7); Basophils % 0.2; Eosinophils % 1.3; HCT 30.9 % (40.0-50.0); HGB 10.3 g/dL (13.5-17.5); Immature Grans % 0.2; Lymphocytes % 27.7; Mean Corp. HGB Concentration 33.3 g/dL (32.0-36.0); Mean Corpuscular Hemoglobin 32.9 pg (27.0-33.0); Mean Corpuscular Volume 98.7 fL (80-95); Mean Platelet Volume 9.2 fL (8.0-11.0); Monocytes % 9.5; Neutrophils % 61.1; Platelet Count 225 x1000/uL (130-400); RBC 3.13 m/cumm (4.50-6.00); RBC Distribution Width 12.1 % (11.8-14.1); White Blood Cell Count 4.73 k/cumm (4.4-10.8)
[2019-01-13 11:50] LABS: Anion Gap 9.9 mmol/L (3-11); BUN 14 mg/dL (7-18); CO2 26.1 mmol/L (21.0-32.0); CREATININE 0.58 mg/dL (0.70-1.30); Calcium 8.8 mg/dL (8.5-10.1); Chloride 105 mmol/L (98-107); Glucose 117 mg/dL (74-106); Potassium 4.2 mmol/L (3.5-5.1); Sodium 141 mmol/L (136-145)
--- NOTE | 2019-01-13 13:12 | W.PM.DS.N ---
Date of service: 01/13/19 Time of Service: 13:12 DS: Diagnosis Discharge Diagnosis (1) Maisonneuve fracture of left fibula: Status: Acute (2) Ambulatory dysfunction: Status: Acute (3) NSTEMI (non-ST elevated myocardial infarction): Status: Acute Discharge Plan Disposition Patient Disposition: HOME W/HOME HEALTH SERVICE Condition: Stable Discharge Details Chief Complaint: Orthopedic Clinical Impression: Laceration of left index finger, Closed fracture of fibula, proximal, left Reason For Visit: NSTEMI,CLOSDED NON-DISPLACED FIBULAR FRACTURE Admit Date/Time: 01/09/19 18:18 Admit Provider: Husam Cotter Attending Provider: Husam Cotter Primary Care Provider: K[facility] Tate ED Provider: Shashank Phelan Hospital Course Hospital Course: Chief Complaint: Fall HPI: 78-year-old man with a prior history of HTN and chronic LE Edema, admitted with a fibular fracture following a fall, with subsequent findings of NSTEMI. Mr. Del Rio has a history of self reported strokes, with diagnosis of small vessel CVA by review of [facility] records. He also has known HTN, and reported chronic LE Edema for which he is on daily diuretic therapy. The patient presented to the ED following a fall at home, with resultant small laceration to his index finger and fracture of the left proximal fibula. He has a known history of ambulatory dysfunction, with reported worsening weakness and unsteady gait resulting in prior falls. Incidentally noted was an elevated Troponin which peaked at 1.05 prior to downtrending. His ECG was initially and subsequently negative for acute ischemic changes. Following admission Mr. Del Rio has been managed conservatively. He has declined a catheterization, and is requesting to go home today. Hospital Course: (1) NSTEMI (non-ST elevated myocardial infarction): Mr. Del Rio has a mild elevation in troponin that quickly downtrended. ECG was non-ischemic. He has refused cardiac catheterization, and due to his anemia was offered transfusion which he also refused. Also refused statin therapy, and today states that he does not wish for any further diagnostic work-up. Risks of his decision were discussed in detail - he is requesting discharge without any further testing or treatment options. Palliative Care was consulted regarding goals of care, confirmed refusal for further cardiac work-up, medications, or care home / SNF placement. Will ensure cardiology follow-up as outpatient. (2) Fibula upper end fracture: Per ortho, patient's injury is generally considered unstable and requires surgery, but may also be treated nonoperatively - given patient's comorbidities and age, recommendations were for conservative management. Will be discharged with a Fracture Walker boot, with instructions for weightbearing as tolerated with an assitive device for stability (cane). He will need follow-up with ortho, with follow-up xrays and stress view of the left ankle for assessment of stability - as the patient is discharged over the weekend this was not scheduled for him, but needs to be ordered and performed prior to appointment with Ortho. He will be discharged with home health required for PT/OT (3) Laceration of finger of left hand: Repaired in ED - [address] that need removal. Will conclude a short course of antibiotic therapy with Keflex. (4) Hypertension: Continue low dose lisinopril. (5) Chronic Edema: Given patient's presentation, at which time he was noted to be dehydrated, he is being discharged off Diuretic therapy. This will need to be reevaluated as an outpatient. (6) DVT prophylaxis: Was maintained on SC heparin. (7) Full Code: DNR/DNI (8) Disposition: Home with home health today, per patient's wishes. He understands the risks of going home largely untreated for his comorbidities, including new diagnosis of NSTEMI as well as chronic ambulatory dysfunction, but is persistent about leaving today. Home Meds and New Rx's Prescriptions: New cephalexin 500 mg Capsule 500 mg PO Q6H Qty: 12 RF: 0 Continued aspirin 325 MG tablet 325 mg PO DAILY RF: 0 lisinopril 5 MG tablet 5 mg PO DAILY RF: 0 ibuprofen 200 MG capsule 200 mg PO PRN PRNRF: 0 Discontinued furosemide [Lasix] 20 mg Tablet 40 mg PO DAILY RF: 0 Discharge Instructions Additional Instructions: Please see your primary care provider this week, and follow-up with a warranty administrator within 2 weeks of discharge. You need an appointment with Dr. Feliberto Verdugo from Orthopedic Surgery within 1-2 weeks of discharge, with an x-ray of your leg and ankle before your appointment. Please have the sutures in your hand removed in 5-7 days. Activity:: No strenuous activity. Always use your boot and cane when walking. Equipment/Supplies:: Fracture Walker Boot and Cane. Diet:: Low Sodium, Heart Healthy. Discharge Orders Discharge Orders: Discharge Order (Routine); Ordered 01/13/19 Ordered By: Ryan Cortez DS: Summary Status at Discharge Functional status at discharge: uses cane/walker Overall status at discharge: patient is not back to baseline Mental Status: mental status grossly normal Speech and Movement: speech and movement normal Mood: congruent mood Affect: normal affect Exam Psych Mental Status: mental status grossly normal Speech and Movement: speech and movement normal Mood: congruent mood Affect: normal affect DS: Data Vitals/I&O Vitals and I&O: Vital Signs Temperature 36.7 C 01/13/19 08:50 Temperature Source Temporal Artery Scan 01/13/19 08:50 Pulse 66 01/13/19 08:56 Pulse Rhythm Regular 01/13/19 08:50 Pulse 68 01/13/19 05:00 Respiratory Rate 21 01/13/19 08:50 Respiratory Effort 01/13/19 08:50 Respiratory Depth Normal 01/13/19 08:50 Respiratory Pattern Normal 01/13/19 08:50 Blood Pressure 127/74 01/13/19 08:56 Blood Pressure Mean 87 01/13/19 08:56 Blood Pressure Position Sitting 01/12/19 20:02 Pulse Oximetry 100 01/13/19 08:56 Oxygen Delivery Method Room Air 01/13/19 08:50 Oxygen Flow Rate 0 01/13/19 08:50 Pain Level 0 01/13/19 08:50 Comment 01/09/19 04:00 Intake & Output 01/12/19 01/13/19 01/13/19 23:59 11:59 23:59 Intake Total 275 / 755 300 / 300 Output Total 650 / 2300 925 / 925 Balance -375 / -1545 -625 / -625 Weight 67.7 kg Intake: IV Oral 265 / 745 300 / 300 Output: Urine 650 / 2300 925 / 925 Other: Urine Color Yellow Yellow Urine Appearance Clear Clear Urine Odor None None Comment using urinal to void Voiding Methods Urinal Urinal Data Completed and Pending Completed studies during hospitalization [Text1]: Exam(s) a RAD:XR foot LT complete EXAM: XR ANKLE LT COMPLETE INDICATION: trauma. COMPARISON: XR FOOT LT COMPLETE from 01/09/2019 XR TIB/FIB LT from 01/09/2019 TECHNIQUE: 2D digital imaging was performed. FINDINGS: Soft tissue swelling is seen around both malleoli. No fracture or ankle mortise widening is seen. There is no talar dome defect. There is a plantar calcaneal spur. Soft tissue swelling is seen over the dorsum of the foot. No fracture or dislocation is seen. IMPRESSION: Soft tissue swelling. No evidence of fracture. --------- Exam(s) a RAD:XR hand LT complete EXAM: XR HAND LT COMPLETE INDICATION: trauma. COMPARISON: No exams were available for comparison TECHNIQUE: 2D digital imaging was performed. FINDINGS: The fingers are not optimally profiled on the lateral view. There is some soft tissue swelling around the index finger. No fracture, dislocation or foreign body is seen. IMPRESSION: Soft tissue swelling. ------- Exam(s) a RAD:XR tib/fib LT EXAM: XR TIB/FIB LT INDICATION: trauma. COMPARISON: XR KNEE LT 1V from 01/09/2019 TECHNIQUE: 2D digital imaging was performed. FINDINGS: There is a nondisplaced fracture of the proximal fibula. There is adjacent soft tissue swelling. No additional fractures are identified in tibia and fibula. The ankle is unremarkable as visualized. There is soft tissue swelling around the malleoli. There is no ankle mortise widening. IMPRESSION: Nondisplaced fracture of the proximal fibula. -------- Exam(s) a RAD:XR ankle LT complete EXAM: XR ANKLE LT COMPLETE INDICATION: trauma. COMPARISON: XR FOOT LT COMPLETE from 01/09/2019 XR TIB/FIB LT from 01/09/2019 TECHNIQUE: 2D digital imaging was performed. FINDINGS: Soft tissue swelling is seen around both malleoli. No fracture or ankle mortise widening is seen. There is no talar dome defect. There is a plantar calcaneal spur. Soft tissue swelling is seen over the dorsum of the foot. No fracture or dislocation is seen. IMPRESSION: Soft tissue swelling. No evidence of fracture. ------- Exam(s) a RAD:XR knee LT 1V EXAM: XR KNEE LT 1V INDICATION: trauma. COMPARISON: No exams were available for comparison TECHNIQUE: 2D digital imaging was performed. FINDINGS: There is prominent posterior soft tissue swelling at the level of the proximal tibia and fibula. There is a nondisplaced fracture of the proximal fibula. No tibial or femoral fractures are seen. No joint effusion is visible. The patella appears intact. Vascular calcifications are incidentally noted. IMPRESSION: Nondisplaced fracture of the proximal fibula. --------- Exam(s) a US:US echocardiogram APPROVED REPORT EXAM: Comprehensive 2D, Doppler, and color-flow Echocardiogram Patient Location: In-Patient Therapeutic Recreation Specialist: Stefania Carter [facility] ([place]) Rhythm: NSR Indications: elevated troponin. Conclusion This study is technically limited Left Ventricle : Left ventricle is to normal diastolic diameter. The left ventricular systolic function appears normal. There is normal LV segmental wall motion. LVEF is 55-60%. The left ventricular diastolic function is normal. Right Ventricle : The right ventricle is normal size. The right ventricular systolic function appears normal. Atria : The left atrium size is normal. The right atrium size is normal. Aortic Valve : The Aortic valve is sclerotic. Aortic valve is probably trileaflet. There is no aortic valvular stenosis. Trace aortic regurgitation. Mitral Valve : The mitral valve is thickened but opens well. Moderate mitral regurgitation directed posteriorly. No evidence of mitral valve stenosis. Tricuspid Valve : The tricuspid valve leaflets are thickened mildly. Mild to moderate tricuspid regurgitation. 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 IVC is dilated, but collapses >50% with inspiration. Estimated RVSP is 20-28 mmHg. There is no prior echocardiogram available for comparison. -------- Exam(s) a CT:CT chest PE CTA EXAM: CT CHEST PE CTA CLINICAL HISTORY: Elevated troponin, suspected PE TECHNIQUE: 68 cc of Omnipaque [address] angiography was performed with multi-slice acquisition and multi-planar and/or 3D reconstructions. COMPARISON: BARIUM SWALLOW W PA LAT CXR from 08/23/2013 FINDINGS: The pulmonary arteries are well opacified with IV contrast. No pulmonary artery filling defects are seen. There is dilatation of the main pulmonary arteries which could indicate pulmonary hypertension. The aorta is normal in diameter and shows mild tortuosity. There is no evidence of dissection. There is mild coronary artery calcification. No pleural or pericardial effusions or adenopathy is seen. There are minimal dependent changes at the lung bases. No infiltrates, pulmonary nodules or bronchiectasis are seen. There are no significant emphysematous or fibrotic changes. The visualized portions of the liver and spleen are unremarkable. There is a large cyst at the upper pole of the left kidney. The adrenals appear normal. There is a large quantity of stool seen in the visualized portions of the colon. IMPRESSION: No evidence of pulmonary emboli or other acute abnormality. ------- Exam(s) a US:US extremity venous BI EXAM: US EXTREMITY VENOUS BI US EXTREMITY VENOUS BI CLINICAL HISTORY: edema BLE's, concern for DVTs. !Error TECHNIQUE: Lower extremity venous ultrasound performed using grayscale, color-flow, and spectral Doppler analysis. COMPARISON: No exams were available for comparison FINDINGS: The common femoral, femoral and popliteal veins demonstrate normal compressibility, augmentation, and color Doppler. The posterior tibial veins are patent. The saphenous vein appears free of thrombus. No superficial thrombophlebitis is seen. No Zurita's cyst or hematoma is seen. Bilateral calf edema is noted. IMPRESSION: No evidence of DVT. -------- Exam(s) a RAD:XR portable chest AP EXAM: XR PORTABLE CHEST AP INDICATION: crackles L base. COMPARISON: CT CHEST PE CTA from 01/09/2019 TECHNIQUE: 2D digital imaging was performed. FINDINGS: Heart size is normal. The aorta is tortuous. Leads overlie the chest. There is minimal linear atelectasis or scarring at the left lung base. The lungs are otherwise clear. IMPRESSION: No acute abnormality. Labs on day of discharge: Labs from last 24 hours 01/13/19 01/13/19 11:34 11:34 WBC 4.73 RBC 3.13 L Hgb 10.3 L Hct 30.9 L MCV 98.7 H MCH 32.9 MCHC 33.3 RDW 12.1 Plt Count 225 MPV 9.2 Immature Gran % 0.2 Neutrophils % 61.1 Lymphocytes % 27.7 Monocytes % 9.5 Eosinophils % 1.3 Basophils % 0.2 Absolute Neutrophils 2.89 Absolute Lymphocytes 1.31 Absolute Monocytes 0.45 Absolute Eosinophils 0.06 Absolute Basophils 0.01 Sodium 141 Potassium 4.2 Chloride 105 Carbon Dioxide 26.1 Anion Gap 9.9 BUN 14 Creatinine 0.58 L Estimated GFR/1.73 m2 >= 60.00 Glucose 117 H Calcium 8.8 [facility] Medical History Edema (Chronic) Hypertension (Chronic) Malignant melanoma (Inactive) Stroke Surgical History S/P hernia repair (Acute) Social History Smoking/Tobacco Use Status: Former Tobacco Use Alcohol Intake: current Alcohol Intake frequency: 3 or more drinks per day Alcohol type: wine and hard liquor Drug use: Never Substance use type: does not use Do you feel safe at home: Yes Do you feel safe in your relationship?: Yes
--- NOTE | 2019-01-13 14:35 | PDOC.HHF2F ---
Home Health Certification Home Health Certification: 1. Encounter Date and Reason I certify that ELYSE TURCIOS was seen by Ryan Cortez on 01/13/19 and that I had a [id number] encounter with this patient that meets the physician face to face encounter requirements. 2. Clinical Findings Supporting Skilled Need and Homebound Status I certify that home health services are medically necessary, include either intermittent group home and/or physical/speech therapy, and that this patient is homebound in that absences from the home require considerable and taxing effort and are infrequent or of short duration, or are attributable to the need to receive medical care. [X] (a) Attached documentation from encounter provides clinical findings supporting skilled need and homebound status (including what assistance patient requires to leave the home). The encounter with the patient was in whole, or in part, for the following medical condition, which is the primary reason for home health care: NSTEMI,CLOSDED NON-DISPLACED FIBULAR FRACTURE Group Home: Hospital Follow-up following NSTEMI. Physical Therapy/Occupational Therapy: Fibular fracture, managed conservatively with walking boot and cane. Would benefit from Home PT/OT. HUMAN RESOURCES RECRUITER: Please evaluate for outpatient and community needs. 3. Certification and Authentication I certify that I composed the above information based on my clinical judgement relating to this patient's medical condition and, if applicable, clinical findings communicated to me by the NPP or inpatient physician who performed the Home Health Referral. All further orders will be obtained through [facility] (Community Based Physician - PCP)
--- NOTE | 2019-01-15 08:35 | INDS_ITS ---
Date of service: 01/15/19 Time of Service: 08:36 PT Notes Inpatient Physical Therapy Discharge Summary Dates: 01/15/2019 Dates of Service: 12/09/2018 through 01/13/2019 This is a clinical summary of care provided on the duration of dates listed above. No charge was made in the completion of this documentation. Referring Doctor: Feliberto Verdugo MD; Nena Ac MD PT Orders: PT CONSULT: Limited Ability Precautions: Fall. Standard. WBAT on L LE with air cast fracture boot. Patient Profile/Admitting Diagnosis: Patient is a 78-year-old male with past medical history significant for CVA, hypertension, and lower extremity edema who presented to the ED on 01/09/2019 due to a mechanical fall outside his house. Patient is found to have laceration of L index finger and a closed proximal L fibular fracture. Dr. Verdugo ordered weight-bearing as tolerated on L LE with air cast fracture boot on. Dr. Melvin indicated a type II NSTEMI for which patient is being closely monitored in the ICU. PMHX: Medical History Hypertension (Chronic) Malignant melanoma (Inactive) Stroke Surgical History S/P hernia repair (Acute) Social History/Home Situation: Patient lives alone in a one-level home with 5 steps to enter and a rail on the left going up. He is independent with all aspects of ADLs and has managed to do them without any need for an adaptive equipment nor assistive ambulatory devices. Equipment Owned/DME: None Subjective: NT Objective: General Observation: NT Mental Status: NT Pain: NT ROM: Right Upper Extremity: Shoulder Flexion WFL. Shoulder abduction WFL. Elbow flexion WFL. Wrist flexion WFL. Opening and closing of hand WFL. Left Upper Extremity: Shoulder Flexion WFL. Shoulder abduction WFL. Elbow flexion WFL. Wrist flexion WFL. Opening and closing of hand WFL. Right Lower Extremity: Hip flexion WFL. Hip abduction WFL. Knee flexion WFL. Ankle dorsiflexion WFL. Ankle plantarflexion WFL. Left Lower Extremity: Hip flexion WFL. Hip abduction WFL. Knee flexion NT. Knee extension -30 degrees due to weight of boot and pain complaint. Ankle dorsiflexion NT. Ankle plantarflexion NT. Strength: Right Upper Extremity: Shoulder flexors 4/5. Shoulder abductors 4/5. Elbow flexors 4/5. Elbow extensors 4/5. [employer] strong. Left Upper Extremity: Shoulder flexors 4/5. Shoulder abductors 4/5. Elbow flexors 4/5. Elbow extensors 4/5. [employer] Manager strong. Right Lower Extremity: Hip flexors 4-/5. Hip abductors 4-/5. Knee flexors 4-/5. Knee extensors 3+/5. Ankle dorsiflexors 4/5. Ankle plantarflexors 4/5. Left Lower Extremity: Hip flexors 4-/5. Hip abductors 4-/5. Knee flexors 3-/5 due to fracture boot and pain complaint. Knee extensors 3-/5. Ankle dorsiflexors NT. Ankle plantarflexors NT. Sensation: Intact as to pain and pressure on bilateral lower extremities. Bed Mobility/Transfers: Rolling supervision Supine to sit supervision Sit to supine supervision Sit to stand supervision Stand to sit supervision Bed to chair supervision Chair to bed supervision Gait: Patient tolerated 75 feet +100 feet of level surface ambulation using SPC and SBA with WBAT on left LE. He denies dizziness, headache, and chest pain throughout ambulation activity. He also is able to tolerate up-and-down three 4 inch steps and two 6 inch steps one hand holding onto rail and managing the single-point cane requiring only standby assist with step to gait pattern. Balance: Static Sitting: Normal Dynamic Sitting: Normal Static Standing: Fair Dynamic Standing: Fair Assessment: Patient is a 78-year-old male with past medical history significant for CVA, hypertension, and lower extremity edema who presented to the ED on 01/09/2019 due to a mechanical fall outside his house. Patient is found to have laceration of L index finger and a closed proximal L fibular fracture. Dr. Verdugo ordered weight-bearing as tolerated on L LE with air cast fracture boot on. Dr. Melvin indicated a type II NSTEMI for which patient is being closely monitored in the ICU. Patient is pleasant and cooperative. He is agreeable to working with PT to regain his prior mobility level. He is also considering having an emergency alert device down the road. His prognosis for regaining PLOF is fair considering his cardiac status. He has demonstrated improvements in her functional mobility performance during this episode of care Patient continues to present with clinical signs and symptoms consistent with current/admitting diagnoses that have resulted to mobility limitations, gait instability, generalized weakness, and impairment of motor control as demonstrated by the following impairment level findings: 1. Decreased strength to B LE major muscle groups 2. Impaired standing balance 3. Impaired activity tolerance 4. Limitation of joint range of motion in L knee and ankle Impairments are contributing to the following functional limitations: 1. Inability to safely ambulate without assistive device and physical assistance 2. Increase completion time for mobility ADL performance 3. Increased fall risk 4. Inability to negotiate steps alone safely Goals: Goals X1 week 1. Supine-Sit independent Date: 01/09/2019 Referring Doctor: Feliberto Verdugo MD; Nena Ac MD PT Orders: PT CONSULT: Limited Ability Precautions: Fall. Standard. WBAT on L LE with air cast fracture boot. Patient Profile/Admitting Diagnosis: Patient is a 78-year-old male with past medical history significant for CVA, hypertension, and lower extremity edema who presented to the ED on 01/09/2019 due to a mechanical fall outside his house. Patient is found to have laceration of L index finger and a closed proximal L fibular fracture. Dr. Verdugo ordered weight-bearing as tolerated on L LE with air cast fracture boot on. Dr. Melvin indicated a type II NSTEMI for which patient is being closely monitored in the ICU. PMHX: Medical History Hypertension (Chronic) Malignant melanoma (Inactive) Stroke Surgical History S/P hernia repair (Acute) Social History/Home Situation: Patient lives alone in a one-level home with 5 steps to enter and a rail on the left going up. He is independent with all aspects of ADLs and has managed to do them without any need for an adaptive equipment nor assistive ambulatory devices. Equipment Owned/DME: None Subjective: Patient states that he feels too tired and still is sad about how in this last fall he had, he was not able to get up. He indicates that his balance has not been good and he has fallen a few times prior to today but he states that he had been able to recover and had been able to stand back up. He likes to walk typically a distance of an 8th of a mile from his house regularly. He reports that yesterday, he had to drag himself back from the road where he fell back to his house an 8th of a mile away. When asked about whether somebody saw down on the road where he fell, he replies that said road is not well travelled so nobody was able to help him. He also said that he does not have an emergency manager medical affairs. Objective: General Observation: Patient seen resting in bed. Telemetry monitoring in place. Stratton catheter in place. Dressing found covering L index finger. Air cast boot on L leg. Mental Status: Alert and oriented x 4 Pain: Considerable pain on L LE with WB, patient states it is more than 5/10 Vital Signs: WNL at time of evaluation ROM: Right Upper Extremity: Shoulder Flexion WFL. Shoulder abduction WFL. Elbow flexion WFL. Wrist flexion WFL. Opening and closing of hand WFL. Left Upper Extremity: Shoulder Flexion WFL. Shoulder abduction WFL. Elbow flexion WFL. Wrist flexion WFL. Opening and closing of hand WFL. Right Lower Extremity: Hip flexion WFL. Hip abduction WFL. Knee flexion WFL. Ankle dorsiflexion WFL. Ankle plantarflexion WFL. Left Lower Extremity: Hip flexion WFL. Hip abduction WFL. Knee flexion NT. Knee extension -30 degrees due to weight of boot and pain complaint. Ankle dorsiflexion NT. Ankle plantarflexion NT. Strength: Right Upper Extremity: Shoulder flexors 4/5. Shoulder abductors 4/5. Elbow flexors 4/5. Elbow extensors 4/5. [employer] Manager strong. Left Upper Extremity: Shoulder flexors 4/5. Shoulder abductors 4/5. Elbow flexors 4/5. Elbow extensors 4/5. [employer] Manager strong. Right Lower Extremity: Hip flexors 4-/5. Hip abductors 4-/5. Knee flexors 4-/5. Knee extensors 3+/5. Ankle dorsiflexors 4/5. Ankle plantarflexors 4/5. Left Lower Extremity: Hip flexors 4-/5. Hip abductors 4-/5. Knee flexors 3-/5 due to fracture boot and pain complaint. Knee extensors 3-/5. Ankle dorsiflexors NT. Ankle plantarflexors NT. Sensation: Intact as to pain and pressure on bilateral lower extremities. Bed Mobility/Transfers: Rolling minimal assist Supine to sit minimal assist Sit to supine minimal assist Sit to stand minimal assist Stand to sit minimal assist Bed to chair minimal assist Chair to bed minimal assist Gait: Patient tolerated 3 sidesteps and 2 step backs just to transfer from bedside to bedside chair using FWW and minimal assist of PT. Patient was able to tolerate minimal weight bearing on L LE but reported considerable pain on the L Leg. He denies dizziness, headache, and chest pain when he sat on the edge of the bed and while doing bed to chair transfer. Dr. Ac recommended just doing a transfer as patient is just diagnosed with a NSTEMI. Level surface ambulation will be attempted tomorrow morning as soon as patient re-stabilizes. Balance: Static Sitting: Normal Dynamic Sitting: Normal Static Standing: Fair Dynamic Standing: Fair Special Tests: Mobility Limitations Standardized Measure [facility] 6 clicks Basic Mobility Inpatient Short Form: Raw Score: 18 CMS Score: 47% deficit Informed Consent/Education: Patient instructed in purpose of PT consult and plan of care. Assessment: Patient is a 78-year-old male with past medical history significant for CVA, hypertension, and lower extremity edema who presented to the ED on 03/11/2018 due to a mechanical fall outside his house. Patient is found to have laceration of L index finger and a closed proximal L fibular fracture. Dr. Verdugo ordered weight-bearing as tolerated on L LE with air cast fracture boot on. Dr. Melvin indicated a type II NSTEMI for which patient is being closely monitored in the ICU. Patient is pleasant and cooperative. He is agreeable to working with PT to regain his prior mobility level. He is also considering having an emergency alert device down the road. His prognosis for regaining PLOF is fair considering his cardiac status. he may benefit from a SNF placement in order to facilitate independent transfer and ambulation status. Patient presents with clinical signs and symptoms consistent with current/admitting diagnoses that have resulted to mobility limitations, gait instability, generalized weakness, and impairment of motor control as demonstrated by the following impairment level findings: 1. Decreased strength to B LE major muscle groups 2. Impaired standing balance 3. Impaired activity tolerance 4. Limitation of joint range of motion in L knee and ankle Impairments are contributing to the following functional limitations: 1. Dependent bed mobility skills 2. Increased dependence with transfers 3. Inability to safely ambulate without assistive device and physical assistance 4. Increase completion time for mobility ADL performance 5. Increased fall risk 6. Inability to negotiate steps alone safely Patient is assessed as a 29095 moderate complexity based on the following: History: Patient is a 78-year-old male with past medical history significant for CVA, hypertension, and lower extremity edema who presented to the ED on 01/09/2019 due to a mechanical fall outside his house. Patient is found to have laceration of L index finger and a closed proximal L fibular fracture. Dr. Verdugo ordered weight-bearing as tolerated on L LE with air cast fracture boot on. Dr. Melvin indicated a type II NSTEMI for which patient is being closely monitored in the ICU. Examination: Demonstrable impairment in strength, balance, and range of motion with underlying impairments and functional limitations as documented above Presentation:Evolving Decision Makin moderate complexity Goals: Goals X1 week 1. Supine-Sit independent NOT MET 2. Sit-Supine independent NOT MET 3. Sit-Stand independent NOT MET 4. Stand-Sit independent NOT MET 5. Bed-Chair independent NOT MET 6. Chair-Bed independent NOT MET 7. Independent gait on level surface with use of least restrictive device for at least 300 feet without report of pain nor dyspnea NOT MET 8. Independent stair negotiation while holding onto bilateral rails for at least 10 steps without report of pain nor dyspnea NOT MET 9. Independent with home exercise program NOT MET 10. Good static and dynamic standing balance/tolerance NOT MET DISCHARGE RECOMMENDATIONS: Patient will benefit from assisted facility placement in order to progress mobility level, strength, and balance in preparation for a safe discharge to home. TREATMENT CODE/TIME: NC. Thank you very much for this referral. Guerita Zaragoza PT, DPT, CLT [facility]
== END 2019-01-13 14:45 | disposition home health service (06) | DRG 282 ==
LOC: ER 07:27 → MS 08:10 → ICU 18:36 → MS 01-16 14:16
PROVIDERS: General Practice; Internal Medicine; Admitting Provider Family Medicine; Emergency Provider Emergency Medicine; PCP Nurse Practitioner Family; Visit Provider Internal Medicine
DX: I21.A1 Myocardial infarction type 2 (principal); S82.862A Displaced Maisonneuve's fracture of left leg, initial encounter for closed fracture; S61.211A Laceration without foreign body of left index finger without damage to nail, initial encounter; W18.30XA Fall on same level, unspecified, initial encounter; X50.1XXA Overexertion from prolonged static or awkward postures, initial encounter; Y93.01 Activity, walking, marching and hiking; Y92.017 Garden or yard in single-family (private) house as the place of occurrence of the external cause; R26.2 Difficulty in walking, not elsewhere classified; M25.572 Pain in left ankle and joints of left foot; I10 Essential (primary) hypertension; R60.0 Localized edema; D64.9 Anemia, unspecified; Z66 Do not resuscitate
CPT/HCPCS: 12002; 29505; 36415; 71275; 80048; 80053; 80061; 82550; 85027; 93306; 97110; 97162; 97530; 99220; 99222; 99223; 99232; 99239; 99253; 99254; 99255; 99285; 99291; 71045; 73130; 73560; 73590; 73610; 73630; 81003; 82607; 82728; 82746; 83540; 83550; 83735; 84443; 84484; 85025; 85610; 85730; 93005; 93010; 93970; 99284; J1644; J3490; L1830; L4361

== ENCOUNTER 2019-01-25 13:46 | Outpatient (CLI) | payer MEDICARE, BC, SELFPAY ==
--- NOTE | 2019-01-25 13:07 | DI.RAD_ITS ---
EXAM: XR TIB/FIB LT INDICATION: f/u fracture. COMPARISON: XR KNEE LT 1V from 01/09/2019 TECHNIQUE: 2D digital imaging was performed. FINDINGS: A nondisplaced fracture of the proximal fibula is again noted. Knee and ankle joint spaces are well maintained. No additional fractures are identified. Soft tissue swelling remains present throughout the leg. IMPRESSION:
== END 2019-01-25 14:06 ==
PROVIDERS: PCP Nurse Practitioner Family; Referring Provider Nurse Practitioner Family; Visit Provider Student in an Organized Health Care Education/Training Program
DX: S82.865D Nondisplaced Maisonneuve's fracture of left leg, subsequent encounter for closed fracture with routine healing (principal); M79.89 Other specified soft tissue disorders; X50.9XXD Other and unspecified overexertion or strenuous movements or postures, subsequent encounter
CPT/HCPCS: 99213; 73590

== ENCOUNTER → 2019-03-01 11:49 | Outpatient (BNVA) | payer MEDICARE, BC, SELFPAY | PROVIDERS: PCP Nurse Practitioner Family; Referring Provider Nurse Practitioner Family; Visit Provider Student in an Organized Health Care Education/Training Program | DX: S82.865D Nondisplaced Maisonneuve's fracture of left leg, subsequent encounter for closed fracture with routine healing; X50.9XXD Other and unspecified overexertion or strenuous movements or postures, subsequent encounter | CPT/HCPCS: 99212 ==

== ENCOUNTER → 2019-04-19 11:03 | Outpatient (BNVA) | payer MEDICARE, BC, SELFPAY | PROVIDERS: PCP Nurse Practitioner Family; Referring Provider Nurse Practitioner Family; Visit Provider Student in an Organized Health Care Education/Training Program | DX: S82.865D Nondisplaced Maisonneuve's fracture of left leg, subsequent encounter for closed fracture with routine healing; X58.XXXD Exposure to other specified factors, subsequent encounter | CPT/HCPCS: 99213 ==

== ENCOUNTER → 2019-07-26 08:07 | Outpatient (BNVA) | payer MEDICARE, BC, SELFPAY | PROVIDERS: PCP Nurse Practitioner Family; Referring Provider Nurse Practitioner Family; Visit Provider Psychiatry & Neurology Neurology | DX: I21.4 Non-ST elevation (NSTEMI) myocardial infarction (principal); R53.83 Other fatigue; R60.0 Localized edema; G62.9 Polyneuropathy, unspecified; R46.0 Very low level of personal hygiene; I67.9 Cerebrovascular disease, unspecified; I10 Essential (primary) hypertension | CPT/HCPCS: 99205; 99215 ==

== ENCOUNTER → 2019-08-09 10:33 | Outpatient (BNVA) | payer MEDICARE, BC, SELFPAY | PROVIDERS: PCP Nurse Practitioner Family; Referring Provider Nurse Practitioner Family; Visit Provider Internal Medicine Cardiovascular Disease | DX: I21.4 Non-ST elevation (NSTEMI) myocardial infarction (principal); R53.83 Other fatigue; I10 Essential (primary) hypertension; R60.0 Localized edema | CPT/HCPCS: 99204; 99215 ==

== ENCOUNTER 2019-08-16 00:57 | Outpatient (CLI) | payer MEDICARE, BC, SELFPAY ==
--- NOTE | 2019-08-16 09:15 | DI.NM_ITS ---
APPROVED REPORT Exam: Pharmacologic Patient Location: Out-Patient Room/Bed: Stress Nurse: Lily Minaya RN BMI: 0 Baseline Rhythm: Sinus Rhythm Indications: Patient testing today for further risk stratification. He reports an inability to ???wal k less and less??? due to fatigue. He denies getting chest pain. Of note he had an NStemi January 10. Medical History Medical History: Chronic fatigue with as history of recent non STEMI in December 2018. 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 Cardiac Medications: Aspirin, Lisinopril. Allergies: No known drug allergies Cardiac Risk Factors: FHX of CAD, HTN Previous Cardiac Procedures: None Pretest Chest Pain Characteristics: None Exercise History: Sedentary Physical Disabilities: Legs Lung Sounds: Clear to auscultation Heart Sounds: Regular Stress Test Details Test: Pharmacologic stress testing performed using 0.4 mg of regadenoson per 5 mL given IV over 10 s econds. Reason for pharmacologic stress test: physical limitation. Nuclear Acquisition: Rest Tc-99m/Stress Tc-99m 1 day Rest Isotope: Tc-99m Sestamibi. Dose: 11.0 Date: 08/16/2019 Injection Time: 0915 Stress Isotope: Tc-99m Sestamibi. Dose: 32.0 Date: 08/16/2019 Injection Time: 1045 HR Resting HR Supine: 62 bpm Max Heart Rate (APMHR): 143 bpm Target HR (85% APMHR): 121 bpm Max HR Achieved: 94 bpm % of APMHR: 65 BP Resting BP Supine: 168/84 mmHg Max BP: 172/78 mmHg ECG Resting ECG: Sinus Rhythm Stress ECG: No significant ST segment changes noted Arrhythmia: None Recovery ECG: Sinus Rhythm Clinical Stress Symptoms: None reported per patient. Stress ECG Conclusion 1. This is a pharmacological stress test. 2. EKG portion of this exam was nondiagnostic. Stress Test Summary STAGE HR BP Symptoms NOTES Supine 62 168/84 1 min post Lexiscan injection 93 172/78 3 min post Lexiscan injection 86 166/74 6 min post Lexiscan injection 80 150/72 MPI Conclusion The ejection fraction was 41% with stress. There were no wall motion abnormalities. There is no evidence of ischemia on the imaging portion of the exam. This represents a normal SPECT stress test. Radiologist Interpretation Radiologist agrees with Testing Director's Interpretation. Radiologist Interpretation by: Luisito Herman MD Interpretation Date/Time: 08/16/2019 15:08:10
[2019-08-16] MEDS: Regadenoson 0.4 MG/5 ML SYR IVP (09:58)
== END 2019-08-16 01:17 ==
PROVIDERS: PCP Nurse Practitioner Family; Visit Provider Internal Medicine Cardiovascular Disease
DX: I25.2 Old myocardial infarction (principal); I10 Essential (primary) hypertension; R53.83 Other fatigue; R60.0 Localized edema; Z82.49 Family history of ischemic heart disease and other diseases of the circulatory system
CPT/HCPCS: 78452; 93016; 93018; 93017; J2785

== ENCOUNTER → 2019-08-23 12:42 | Outpatient (BNVA) | payer MEDICARE, BC, SELFPAY | PROVIDERS: PCP Nurse Practitioner Family; Referring Provider Nurse Practitioner Family; Visit Provider Internal Medicine Cardiovascular Disease | DX: I21.4 Non-ST elevation (NSTEMI) myocardial infarction (principal); I10 Essential (primary) hypertension; R60.0 Localized edema; I34.0 Nonrheumatic mitral (valve) insufficiency | CPT/HCPCS: 99214 ==

== ENCOUNTER 2019-09-07 13:12 | Outpatient (REF) | payer MEDICARE, BC, SELFPAY ==
[2019-09-07 19:01] LABS: HCT 38.7 % (40.0-50.0); HGB 12.9 g/dL (13.5-17.5); Mean Corp. HGB Concentration 33.3 g/dL (32.0-36.0); Mean Corpuscular Hemoglobin 32.3 pg (27.0-33.0); Mean Corpuscular Volume 96.8 fL (80-95); Mean Platelet Volume 11.3 fL (8.0-11.0); Platelet Count 218 x1000/uL (130-400); RBC Distribution Width 12.3 % (11.8-14.1); White Blood Cell Count 5.47 k/cumm (4.4-10.8)
[2019-09-07 19:05] LABS: Anion Gap 3.4 mmol/L (3-11); BUN 12 mg/dL (7-18); CO2 27.6 mmol/L (21.0-32.0); CREATININE 0.61 mg/dL (0.70-1.30); Calcium 9.3 mg/dL (8.5-10.1); Chloride 99 mmol/L (98-107); Glucose 98 mg/dL (74-106); Potassium 4.8 mmol/L (3.5-5.1); Sodium 130 mmol/L (136-145)
[2019-09-07 21:03] LABS: Iron 73 ug/dL (65-175)
== END 2019-09-07 13:32 ==
LOC: NCHCN 13:12
PROVIDERS: PCP Nurse Practitioner Family; Visit Provider Nurse Practitioner Family
DX: R60.0 Localized edema (principal); R53.83 Other fatigue
CPT/HCPCS: 80048; 85027; 83540

== ENCOUNTER 2019-09-12 21:13 | Outpatient (REF) | payer MEDICARE, BC, SELFPAY ==
[2019-09-12 20:11] LABS: HCT 37.2 % (40.0-50.0); HGB 12.5 g/dL (13.5-17.5); Mean Corp. HGB Concentration 33.6 g/dL (32.0-36.0); Mean Corpuscular Hemoglobin 32.7 pg (27.0-33.0); Mean Corpuscular Volume 97.4 fL (80-95); Mean Platelet Volume 11.1 fL (8.0-11.0); Platelet Count 226 x1000/uL (130-400); RBC 3.82 m/cumm (4.50-6.00); RBC Distribution Width 12.2 % (11.8-14.1); White Blood Cell Count 5.56 k/cumm (4.4-10.8)
[2019-09-12 20:28] LABS: Anion Gap 8.6 mmol/L (3-11); BUN 12 mg/dL (7-18); CO2 28.4 mmol/L (21.0-32.0); CREATININE 0.64 mg/dL (0.70-1.30); Calcium 9.3 mg/dL (8.5-10.1); Chloride 101 mmol/L (98-107); Glucose 93 mg/dL (74-106); Potassium 4.4 mmol/L (3.5-5.1); Sodium 138 mmol/L (136-145)
[2019-09-12 20:33] LABS: Iron 77 ug/dL (65-175)
== END 2019-09-12 21:33 ==
LOC: NCHCN 21:13
PROVIDERS: PCP Nurse Practitioner Family; Visit Provider Nurse Practitioner Family
DX: R53.83 Other fatigue (principal); I10 Essential (primary) hypertension
CPT/HCPCS: 80048; 85027; 83540

== ENCOUNTER → 2019-09-27 11:12 | Outpatient (BNVA) | payer MEDICARE, BC, SELFPAY | PROVIDERS: PCP Nurse Practitioner Family; Referring Provider Nurse Practitioner Family; Visit Provider Internal Medicine Cardiovascular Disease | DX: I67.9 Cerebrovascular disease, unspecified (principal); I21.4 Non-ST elevation (NSTEMI) myocardial infarction; I10 Essential (primary) hypertension; R60.0 Localized edema; I34.0 Nonrheumatic mitral (valve) insufficiency | CPT/HCPCS: 99214 ==

== ENCOUNTER → 2019-10-25 08:08 | Outpatient (BNVA) | payer MEDICARE, BC, SELFPAY | PROVIDERS: PCP Nurse Practitioner Family; Referring Provider Nurse Practitioner Family; Visit Provider Psychiatry & Neurology Neurology | DX: R53.83 Other fatigue (principal); R60.0 Localized edema; I25.2 Old myocardial infarction; I10 Essential (primary) hypertension; G62.9 Polyneuropathy, unspecified; R46.0 Very low level of personal hygiene; I67.9 Cerebrovascular disease, unspecified | CPT/HCPCS: 99214 ==

== ENCOUNTER 2019-11-09 16:02 | Outpatient (REF) | payer MEDICARE, BC, SELFPAY ==
[2019-11-09 21:21] LABS: Anion Gap 8.8 mmol/L (3-11); BUN 11 mg/dL (7-18); CO2 27.2 mmol/L (21.0-32.0); CREATININE 0.68 mg/dL (0.70-1.30); Chloride 101 mmol/L (98-107); Glucose 88 mg/dL (74-106); Sodium 137 mmol/L (136-145)
== END 2019-11-09 16:22 ==
LOC: NCHCN 16:02
PROVIDERS: PCP Nurse Practitioner Family; Visit Provider Nurse Practitioner Family
DX: R53.83 Other fatigue (principal); R60.0 Localized edema
CPT/HCPCS: 80048

== ENCOUNTER 2019-11-15 14:47 | Outpatient (REF) | payer MEDICARE, BC, SELFPAY ==
[2019-11-15 18:57] LABS: Anion Gap 3.4 mmol/L (3-11); BUN 14 mg/dL (7-18); CO2 33.6 mmol/L (21.0-32.0); CREATININE 0.71 mg/dL (0.70-1.30); Calcium 9.5 mg/dL (8.5-10.1); Chloride 103 mmol/L (98-107); Glucose 90 mg/dL (74-106); Potassium 4.5 mmol/L (3.5-5.1); Sodium 140 mmol/L (136-145)
== END 2019-11-15 15:07 ==
LOC: NCHCN 14:47
PROVIDERS: PCP Nurse Practitioner Family; Visit Provider Nurse Practitioner Family
DX: R53.83 Other fatigue (principal); R60.0 Localized edema
CPT/HCPCS: 80048

== ENCOUNTER 2020-05-19 10:30 | Outpatient (REF) | payer MEDICARE, BC, SELFPAY ==
[2020-05-19 15:32] LABS: HCT 36.4 % (40.0-50.0); MCH 32.3 pg (27.0-33.0); MCV 98.1 fL (80-95); MPV 10.5 fL (8.0-11.0); Platelet Count 227 10^3/uL (130-400); RBC 3.71 10^6/uL (4.36-5.78); RDW 11.8 % (11.8-14.1); RDW-SD 42.8 fL; WBC 8.74 10^3/uL (4.4-10.8)
[2020-05-19 16:21] LABS: ALT 27 U/L (16-63); AST 26 U/L (15-37); Albumin 3.6 g/dL (3.4-5.0); Alkaline Phosphatase 63 U/L (46-116); Anion Gap 6.1 mmol/L (3-11); BUN 15 mg/dL (7-18); Bilirubin, Total 0.4 mg/dL (0.2-1.0); CO2 29.9 mmol/L (21.0-32.0); CREATININE 0.6 mg/dL (0.70-1.30); Calcium 8.9 mg/dL (8.5-10.1); Chloride 103 mmol/L (98-107); Ferritin 55 ng/mL (26-388); Folate 12.5 ng/mL (8.6-20.0); Glucose 99 mg/dL (74-106); Potassium 4.7 mmol/L (3.5-5.1); Sodium 139 mmol/L (136-145); TSH (W/Ref FT4) 2.04 uIU/mL (0.36-3.74); Total Protein 6.5 g/dL (6.4-8.2); Vitamin B12 477 pg/mL (193-986)
[2020-05-19 17:02] LABS: ESR 8 mm//hr (0-20)
[2020-05-20 11:06] LABS: Syphilis Serology (RPR) Negative (Negative)
== END 2020-05-19 10:31 | disposition home or self-care (01) ==
LOC: NCHCN 10:30
PROVIDERS: PCP Nurse Practitioner Family; Visit Provider Family Medicine
DX: R53.1 Weakness (principal); F03.90 Unspecified dementia, unspecified severity, without behavioral disturbance, psychotic disturbance, mood disturbance, and anxiety; D64.9 Anemia, unspecified
CPT/HCPCS: 80053; 85027; 85652; 82607; 82728; 82746; 84443; 86592

== ENCOUNTER 2020-06-04 16:27 | Inpatient (IN) | payer MEDICARE, BC, SELFPAY ==
[2020-06-04] VITALS (34 sets, daily range): BP systolic 112–152; BP diastolic 59–76; PULSE 56–79; RESP 15–25; TEMP 36.5–37.2; O2SAT 97–100
--- NOTE | 2020-06-04 16:30 | RT.EKG_ITS ---
APPROVED REPORT Exam: Resting ECG Patient Location: E HR:58 bpm ECG Measurements Heart Rate 58 AXIS WA 213 P -22 QRSd 94 QRS 24 QT 466 T 19 QTc 459 Conclusion Sinus bradycardia...rate< 60 Borderline prolonged WA interval...WA >212, V-rate 50- [address] elevation, anterior leads...ST >0.15mV in V1-V4 I have reviewed and interpreted ECG and agree with software generated interpretation.
--- NOTE | 2020-06-04 16:33 | ED.GENADUL_ITS ---
Discharge Plan Disposition Patient Disposition: [facility] IN[facility]IENT Condition: Stable Discharge Details Clinical Impression: Rhabdomyolysis, Elevated troponin, Contusion of elbow, left, Contusion of elbo w, right, Fall, History of balance disorder Admit Date/Time: 06/04/20 20:15 Admit Provider: Bon Peraza Attending Provider: Bon Peraza Primary Care Provider: Kp Tate ED Provider: Kylie Bahena Discharge Data Discharge Date/Time-TO BE ENTERED AT DEPARTURE: 06/04/20 21:34 Medical Decision Making 80-year-old male with a history of stroke, NSTEMI, hypertension who presents from home after a fall outside 2 days ago with laying outside on the ground for the past 2 days. Blood pressure minimally hypertensive. Heart rate 50s. He is afebrile. Patient appears disheveled but is oriented x3 and able to answer questions. EKG on arrival notes a rate of still annoying 58, sinus, read as borderline ST elevation in anterior leads but this appears only minimal in V2. No obvious STEMI. No ST depression. Considering patient's fall with head injury, will obtain CT head, cervical spine, chest abdomen and pelvis in addition to left humerus and bilateral elbow x-rays. Will give IV fluids for concern for potential rhabdo Patient vomited while down in radiology and he appeared to complain of dizziness and vertigo when attempting to lay down for imaging. Patient had to be returned to the ED for Ativan and Phenergan. At this time labs returning and a troponin is elevated at 4.5. [facility] cardiology paged stat for recommendations. Discussed with [facility] cardiology and they do not think EKG is consistent with STEMI. Agree with plan for aspirin and for repeat troponin for trending. If CT head negative, can start heparin and determine disposition based on findings. All imaging reviewed. CT head, cervical spine, chest abdomen pelvis with recons negative for acute findings. Left humerus x-ray negative. Bilateral elbow x- rays read as radial head fractures per virtual radiology. Repeat troponin uptrending at 5.4. Repeat EKG appears unchanged. Case discussed with [facility] cardiology who feel that this is not an NSTEMI as patient has no complaint of chest pain and appears more consistent with a metabolic abnormality considering his rhabdomyolysis. [facility] has no available beds. Discussed with [facility] who feel that if patient has remained hemodynamically stable, does not feel that he warrants ICU level. Case discussed with our hospitalist who accepts patient for admission here for rhabdo, elevated troponin with plan for trending troponins and EKGs Elbow x-rays reviewed with Dr. Verdugo who feels that there is no obvious radial head fractures and no other acute recommendations other than sling for comfort. No surgical interventions indicated. Medical Records Medical records reviewed: Yes I reviewed the patient's medical records. Imaging Data Radiologic Study: Radiologist's impression: XR Left Humerus Exam date and time: 06/04/2020 6:03 PM Age: 80 years old Clinical indication: Injury or trauma; Fall; Blunt trauma (contusions or hematomas); Arm, upper; Left TECHNIQUE: Imaging protocol: XR Left humerus. Views: 2 or more views. COMPARISON: CR XR ELBOW LT COMPLETE 06/04/2020 7:01 PM FINDINGS: Bones/joints: No acute fracture or dislocation. Lungs: The visualized lateral left lung is clear. Soft tissues: Normal. IMPRESSION: No acute fracture or dislocation. CTA Chest With Contrast Exam date and time: 06/04/2020 5:41 PM Age: 80 years old Clinical indication: Chest pain; Abdominal pain; Generalized TECHNIQUE: Imaging protocol: Computed tomographic angiography of the chest with contrast. 3D rendering (Not supervised by radiologist): MIP and/or 3D reconstructed images were created by the technologist. COMPARISON: CT CHEST PE CTA 01/09/2019 11:40 AM FINDINGS: Pulmonary arteries: Contrast fills the pulmonary artery and its branch vessels satisfactorily. No intraluminal filling defect to suggest pulmonary embolism. Aorta: Unremarkable. No aortic aneurysm. No aortic dissection. Lungs: Posterior bilateral dependent atelectasis. Mild medial right upper lobe foci of atelectasis. No contusions, consolidations, or pulmonary nodules. Pleural spaces: No pneumothorax or pleural effusions. Heart: Cardiomegaly with severe coronary artery calcifications. No hemopericardium. No retrosternal hematoma. Lymph nodes: Unremarkable. No enlarged lymph nodes. Bones/joints: Chronic superior mild T6 and T8 endplate deformities. No new wedge compression fractures. Marked kyphosis. Soft tissues: Unremarkable. IMPRESSION: 1. No acute soft tissue or vascular injury in the chest. 2. No osseous injury in the chest. CT Angiography Abdomen With Contrast Exam date and time: 06/04/2020 5:41 PM Age: 80 years old Clinical indication: Chest pain; Abdominal pain; Generalized TECHNIQUE: Imaging protocol: Computed tomographic angiography images of the abdomen with intravenous contrast material. 3D rendering (Not supervised by radiologist): MIP and/or 3D reconstructed images were created by the technologist. COMPARISON: CT CHEST PE CTA 01/09/2019 11:40 AM FINDINGS: Aorta: No aortic aneurysm. No aortic dissection. Celiac trunk and mesenteric arteries: No occlusion or significant stenosis. Renal arteries: No occlusion or significant stenosis. Liver: No hepatic laceration or perihepatic hematoma. Stable simple cyst in the right lobe of the liver measuring 1.2 cm. Gallbladder and bile ducts: Normal. No calcified stones. No ductal dilation. Pancreas: Normal. No ductal dilation. Spleen: No splenic laceration or perisplenic hematoma. Adrenals: Normal. No mass. Kidneys and ureters: Stable large simple left exophytic upper pole 7 mm renal cyst. Large lateral interpolar right 5.4 cm simple renal cyst. Stomach and bowel: Unremarkable. No obstruction. No mucosal thickening. Appendix: Normal appendix. No appendicitis. Lymph nodes: Unremarkable. No enlarged lymph nodes. Intraperitoneal space: Unremarkable. No free air. No significant fluid collection. Reproductive: Large foci of enhancement in the enlarged prostate gland. The largest in the right transitional zone measures 3.8 cm which may represent a BPH nodule although prostate cancer cannot be excluded. Bones/joints: Unremarkable. No acute fracture. No dislocation. Soft tissues: Stable postoperative changes of bilateral inguinal herniorrhaphy. IMPRESSION: 1. No solid or hollow viscus injury in the abdomen or pelvis. No acute osseous injury. 2. Multiple enhancing nodules in the enlarged prostate gland. While these may represent BPH nodules, prostate cancer cannot be excluded. Correlation with PSA and Urology consultation is recommended. XR Right Elbow Exam date and time: 06/04/2020 7:14 PM Age: 80 years old Clinical indication: Injury or trauma; Fall; Blunt trauma (contusions or hematomas); Elbow; Right TECHNIQUE: Imaging protocol: XR Right elbow. Views: 3 or more views. COMPARISON: No relevant prior studies available. FINDINGS: Bones/joints: Nondisplaced fracture of the right radial head. Joint hemarthrosis. Soft tissues: Normal. IMPRESSION: Nondisplaced fracture of the right radial head. Joint hemarthrosis. XR Left Elbow Exam date and time: 06/04/2020 7:14 PM Age: 80 years old Clinical indication: Injury or trauma; Fall; Blunt trauma (contusions or hematomas); Elbow; Left TECHNIQUE: Imaging protocol: XR Left elbow. Views: 3 or more views. COMPARISON: CR LEFT FOREARM 04/08/2015 6:36 PM FINDINGS: Bones/joints: Acute minimally displaced fracture of the left radial head with intra-articular extension. Left elbow joint hemarthrosis. Soft tissues: Normal. IMPRESSION: Acute minimally displaced fracture of the left radial head. CT Head Without Contrast Exam date and time: 06/04/2020 6:37 PM Age: 80 years old Clinical indication: Injury or trauma; Fall; Blunt trauma (contusions or hematomas) TECHNIQUE: Imaging protocol: Computed tomography of the head without contrast. COMPARISON: No relevant prior studies available. FINDINGS: Brain: No hyperdense finding to suggest acute intracranial hemorrhage. Age appropriate, global cerebral atrophy. Old lacunar infarct in the right rosalba. Ill-defined foci of hypodensity in the periventricular white matter bilaterally consistent with chronic small vessel ischemic changes. No additional cerebral parenchymal abnormalities identified. Cerebral ventricles: Ventricular enlargement likely related to cerebral atrophy. Bones/joints: See Soft tissues finding. Paranasal sinuses: Visualized sinuses are unremarkable. No fluid levels. Mastoid air cells: Visualized mastoid air cells are well aerated. Soft tissues: Left posterolateral scalp contusion. No adjacent skull fracture. IMPRESSION: 1. No acute intracranial abnormalities identified. Specifically no CT evidence of mass, hemorrhage, or acute infarction. 2. Old lacunar infarct in the right rosalba. Age appropriate cerebral atrophy with chronic small vessel ischemic changes. 3. Left posterolateral scalp contusion. No adjacent skull fracture. CT Cervical Spine Without Contrast Exam date and time: 06/04/2020 6:37 PM Age: 80 years old Clinical indication: Injury or trauma; Fall; Blunt trauma (contusions or hematomas) TECHNIQUE: Imaging protocol: Computed tomography images of the cervical spine without contrast. COMPARISON: No relevant prior studies available. FINDINGS: Bones/joints: Exaggerated lordotic curvature of the cervical spine without evidence for spondylolysis or spondylolisthesis. No vertebral body compression. No fracture identified in the vertebral bodies, the posterior, or lateral facets. Discs/Spinal canal/Neural foramina: No significant disc protrusion. No severe spinal canal stenosis. No significant neural foraminal narrowing. Lungs: The visualized portions of the lung apices are clear. Soft tissues: Unremarkable. IMPRESSION: Exaggerated lordotic curvature of the cervical spine. No acute fracture or malalignment. Lab Data Lab results reviewed: Yes I reviewed the patient's lab results. Labs: Laboratory Tests Range/Units 06/04/20 06/04/20 06/04/20 17:08 17:08 17:08 WBC (4.4-10.8) 10^3/uL RBC (4.36-5.78) 10^6/uL Hgb (13.5-17.5) g/dL Hct (40.0-50.0) % MCV (80-95) fL MCH (27.0-33.0) pg MCHC (32.0-36.0) % RDW (11.8-14.1) % Plt Count (130-400) 10^3/uL MPV (8.0-11.0) fL Immature Gran % Neutrophils % Lymphocytes % Monocytes % Eosinophils % Basophils % Nucleated RBC % % Absolute Neutrophils (1.2-6.7) 10^3/uL Absolute Lymphocytes (1.2-3.4) 10^3/uL Absolute Monocytes (0.1-0.8) 10^3/uL Absolute Eosinophils (0.0-0.7) 10^3/uL Absolute Basophils (0.0-0.2) 10^3/uL PT (9.3-11.0) sec 15.0 H INR (0.9-1.1) 1.5 H APTT (21.0-27.5) sec 24.2 Sodium (136-145) mmol/L 135 L Potassium (3.5-5.1) mmol/L 3.6 Chloride (98-107) mmol/L 101 Carbon Dioxide (21.0-32.0) mmol/L 24.3 Anion Gap (3-11) mmol/L 9.7 BUN (7-18) mg/dL 17 Creatinine (0.70-1.30) mg/dL 0.5 L Estimated GFR/1.73 m2 (mL/min/1.73m2) >= 60.00 Glucose (74-106) mg/dL 101 Calcium (8.5-10.1) mg/dL 8.6 Magnesium (1.8-2.4) mg/dL 2.0 Total Bilirubin (0.2-1.0) mg/dL 0.8 AST (15-37) U/L 304 H ALT (16-63) U/L 75 H Alkaline Phosphatase (46-116) U/L 54 Creatine Kinase (39-308) U/L 19786 H Troponin I (<0.06) ng/mL 4.56 H* Total Protein (6.4-8.2) g/dL 6.1 L Albumin (3.4-5.0) g/dL 3.2 L Urine Color (Yellow) Urine Clarity (Clear) Urine pH (5-8) Ur Specific [place] (1.005-1.025) Urine Protein (Negative) mg/dL Urine Ketones (Negative) mg/dL Urine Blood (Negative) Urine Nitrite (Negative) Urine Bilirubin (Negative) Urine Urobilinogen (Up TO 0.2) EU/dL Ur Leukocyte Esterase (Negative) Urine RBC (0-2) HPF Urine WBC (0-5) HPF Ur Epithelial Cells (Negative) HPF Urine Crystals (Negative) HPF Urine Bacteria (Negative) HPF Urine Casts (Negative) LPF Urine Mucus (Negative) Urine Other (Negative) Ur Culture Indicated? Urine Glucose (Negative) mg/dL Range/Units 06/04/20 06/04/20 06/04/20 17:08 18:28 19:00 WBC (4.4-10.8) 10^3/uL 11.15 H RBC (4.36-5.78) 10^6/uL 3.78 L Hgb (13.5-17.5) g/dL 12.3 L Hct (40.0-50.0) % 35.4 L MCV (80-95) fL 93.7 MCH (27.0-33.0) pg 32.5 MCHC (32.0-36.0) % 34.7 RDW (11.8-14.1) % 11.7 L Plt Count (130-400) 10^3/uL 205 MPV (8.0-11.0) fL 8.8 Immature Gran % 0.4 Neutrophils % 87.2 Lymphocytes % 5.9 Monocytes % 6.4 Eosinophils % 0.0 Basophils % 0.1 Nucleated RBC % % 0 Absolute Neutrophils (1.2-6.7) 10^3/uL 9.72 H Absolute Lymphocytes (1.2-3.4) 10^3/uL 0.66 L Absolute Monocytes (0.1-0.8) 10^3/uL 0.71 Absolute Eosinophils (0.0-0.7) 10^3/uL 0.00 Absolute Basophils (0.0-0.2) 10^3/uL 0.01 PT (9.3-11.0) sec INR (0.9-1.1) APTT (21.0-27.5) sec Sodium (136-145) mmol/L Potassium (3.5-5.1) mmol/L Chloride (98-107) mmol/L Carbon Dioxide (21.0-32.0) mmol/L Anion Gap (3-11) mmol/L BUN (7-18) mg/dL Creatinine (0.70-1.30) mg/dL Estimated GFR/1.73 m2 (mL/min/1.73m2) Glucose (74-106) mg/dL Calcium (8.5-10.1) mg/dL Magnesium (1.8-2.4) mg/dL Total Bilirubin (0.2-1.0) mg/dL AST (15-37) U/L ALT (16-63) U/L Alkaline Phosphatase (46-116) U/L Creatine Kinase (39-308) U/L Troponin I (<0.06) ng/mL 5.44 H* Total Protein (6.4-8.2) g/dL Albumin (3.4-5.0) g/dL Urine Color (Yellow) Yellow Urine Clarity (Clear) Clear Urine pH (5-8) 6.5 Ur Specific [place] (1.005-1.025) 1.025 Urine Protein (Negative) mg/dL 30 H Urine Ketones (Negative) mg/dL >=160 H Urine Blood (Negative) Small H Urine Nitrite (Negative) Negative Urine Bilirubin (Negative) Negative Urine Urobilinogen (Up TO 0.2) EU/dL 0.2 Ur Leukocyte Esterase (Negative) Negative Urine RBC (0-2) HPF 3-5 H Urine WBC (0-5) HPF 0-2 Ur Epithelial Cells (Negative) HPF Negative Urine Crystals (Negative) HPF Negative Urine Bacteria (Negative) HPF Negative Urine Casts (Negative) LPF Negative Urine Mucus (Negative) Trace Urine Other (Negative) Negative Ur Culture Indicated? No Urine Glucose (Negative) mg/dL Negative ECG Data Attestation: I personally reviewed and interpreted this ECG (s) as follows: Interpretation: #1 -- HPI General Mode of arrival: EMS . Date/Time Provider Initiated Documentation: 06/04/20 16:29 . Limitations to Documentation: physical limitation . Information obtained by: patient and EMS . HPI Narrative: Patient is a 80-year-old male with a history of stroke, NSTEMI, hypertension who presents to the ED after a fall outside his home 2 days ago and laying there for the last 2 days due to weakness. Patient states that he wanted to go out for a walk 2 days ago and left his house without his walker which he needs for his balance problems. Patient states he also did not take his phone with him. He states he was walking outside and lost his balance and fell to the ground striking his head on the ground. He denies any LOC or vomiting. He states he attempted to crawl to the porch but was too weak so he laid on the ground for tonight. He states his neighbor checked on him today and found him laying on the ground outside. EMS arrived and they had to lift patient due to his weakness. Patient is complaining of bilateral elbow pain from his falls but denies any headache, neck pain, chest pain, abdominal pain, back pain. Patient denies any recent travel, recent known sick contacts, change in his medication, fever, vomiting, diarrhea or urinary symptoms Related Data Home Medications Medication Instructions Recorded Confirmed aspirin 325 mg PO DAILY 09/30/12 06/04/20 lisinopril 5 mg PO HS 09/30/12 06/04/20 furosemide 20 mg tablet 40 mg PO DAILY 09/27/19 06/04/20 clobetasol 1 applic TOPICAL BID PRN 06/04/20 06/04/20 trazodone 50 - 100 mg PO HS 06/04/20 06/04/20 Allergies Allergy/AdvReac Type Severity Reaction Status Date / Time No Known Allergies Allergy Verified 06/04/20 20:48 General Stated Complaint: AMS/LOC DELILAH: 2 Review of Systems All systems reviewed & are unremarkable except as noted in HPI and below Constitutional Constitutional: Reports as per HPI, Denies chills and Denies fever(s) Eyes Eyes: Denies blurry vision ENT Ears, Nose, Mouth, and Throat: Denies dizziness, Denies sore throat and Denies throat swelling Cardiovascular Cardiovascular: Denies chest pain and Denies dyspnea Respiratory Respiratory: Denies cough and Denies dyspnea Gastrointestinal Gastrointestinal: Denies abdominal pain, Denies diarrhea and Denies vomiting Genitourinary Genitourinary: Denies hematuria and Denies dysuria Musculoskeletal Musculoskeletal: Denies back pain, Denies numbness and Reports other (b/l elbow pain) Integumentary/Breasts Skin/Breast: Denies lesions and Denies rash Neurologic Neurologic: Denies dizziness, Denies localized weakness and Denies numbness Allergic/Immunologic Allergic/Immunologic: Denies throat swelling [facility] Medical History (Updated 06/06/20 @ 15:13 by Nena Ac MD) Cerebral vascular disease Edema Heart disease Hypertension Maisonneuve fracture of left fibula (01/08/19) Malignant melanoma lower back; in situ Osteoporosis Poor personal hygiene Sensorineural hearing loss of combined sites, bilateral Stroke Surgical History S/P hernia repair Social History Smoking/Tobacco Use Status: Former Tobacco Use Smoking risk assessment performed?: Yes Alcohol Intake: current Alcohol Intake frequency: 3 or more drinks per day Al cohol type: wine and hard liquor Drug use: Never Substance use type: does not use Number of Children: 2 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 Estranged from his children. Moved from [place]. Exam Const General: cooperative and disheveled Orientation: alert, awake and oriented x3 HENMT Head: normal to inspection Ears: hearing grossly normal bilaterally and external ears normal General nose exam: external nose normal Face and sinus: normal facial exam Mouth: mucous membranes dry Teeth and gingiva: poor dentition Eyes General: appearance normal, both eyes and all related structures Eyelids: eyelids normal Pupils: other (3mm on left, 2mm on right ) EOM: EOM intact bilaterally Neck Neck: normal visual inspection Lymphatic: no lymphadenopathy noted Chest Chest: no crepitus and no tenderness Chest/axillae images: 1. Superficial abrasion Resp Effort & Inspection: normal respiratory effort and able to speak in complete sentences Auscultation: clear to auscultation bilaterally Cardio Rate: bradycardic Rhythm: regular rhythm GI Inspection: normal to inspection Palpation: soft, not firm, no guarding, no hepatosplenomegaly, no masses and nontender Auscultation: normal bowel sounds Back/Spine/Pelvis Cervical Spine: No cervical spinal tenderness Thoracic/Lumbar Spine: No thoracic spinal tenderness and No lumbar spinal tenderness Pelvis: no pain with anterior-posterior compression and no pain with lateral compression Skin General skin exam: no rashes or lesions noted Neuro General: patient alert, patient awake, moves all extremities, no meningeal signs and no focal motor deficits Cognition: normal cognition Speech: speech normal Gait: normal gait Motor: muscle tone normal throughout Sensory Exam: no sensory deficits noted Extrem Other: Tenderness to palpation to bilateral elbows including epicondyles and olecranon. There is pain with range of motion but no obvious deformity. No pain in shoulders for with range of motion. He does have several areas of ecchymosis to his left humerus but no significant tenderness to palpation. Bilateral distal pulses intact He has bilateral pedal edema with worsening pitting edema in his left lower extremity which he states is chronic. No pain in bilateral hips and knees with range of motion. No hip or knee deformities noted. Psych Appearance: grossly normal Mental Status: mental status grossly normal Speech and Movement: speech and movement normal Affect: normal affect Thought Process: normal
[2020-06-04 17:24] LABS: Abs Immature Grans 0.04 10^3/uL (0.0-0.06); Absolute Basophil Count 0.01 10^3/uL (0.0-0.2); Absolute Lymphocyte Count 0.66 10^3/uL (1.2-3.4); Absolute Monocyte Count 0.71 10^3/uL (0.1-0.8); Basophils % 0.1; HCT 35.4 % (40.0-50.0); HGB 12.3 g/dL (13.5-17.5); Immature Grans % 0.4; Lymphocytes % 5.9; MCH 32.5 pg (27.0-33.0); MCHC 34.7 % (32.0-36.0); MCV 93.7 fL (80-95); MPV 8.8 fL (8.0-11.0); Monocytes % 6.4; Neutrophils % 87.2; Nucleated RBC 0 %; Platelet Count 205 10^3/uL (130-400); RBC 3.78 10^6/uL (4.36-5.78); RDW 11.7 % (11.8-14.1); RDW-SD 40.1 fL; WBC 11.15 10^3/uL (4.4-10.8)
[2020-06-04 17:25] LABS: Absolute Neutrophil Count 9.72 10^3/uL (1.2-6.7)
--- NOTE | 2020-06-04 17:39 | DI.CT_ITS ---
EXAM: CT THORACIC LUMBAR SPINE REC CLINICAL HISTORY: s/p fall, r/o fx TECHNIQUE: COMPARISON: CT CT CHEST PE CTA from 01/09/2019 FINDINGS: THORACIC SPINAL COLUMN: There is gradual scoliosis. No wedge compression fractures. Slight loss of height of superior endpl ate of T6 is noted, age indeterminate. This does not appear be obviously acute. No lytic osseous le sions identified. No osseous compromise of the thoracic spinal canal. Exaggerated lordosis of the cervical curvature is noted. LUMBAR SPINAL COLUMN: There is relatively preserved disc height throughout the lumbosacral spinal column. There is no evid ence of compression fracture or significant listhesis. No pars defects. No lytic osseous lesions. Mild facet joint degenerative changes. Multilevel annular bulging. Sacroiliac joints appear age-deb ropriate. No ankylosis. There is suggestion of a at annular bulging and disc herniation at L4-of the L3-4 level. There is al so mild canal stenosis. IMPRESSION: 1. There are no acute appearing fractures in thoracic and lumbar spinal columns. There is slight los s of height of T6 superior endplate which is not have an acute appearance. 2. Disc disease and spinal canal stenosis lower lumbar spine. If clinically indicated this can be fu rther studied with lumbar spine MRI.
[2020-06-04 17:45] LABS: INR 1.5 (0.9-1.1); PTT Activated 24.2 sec (21.0-27.5)
[2020-06-04 17:50] LABS: ALT 75 U/L (16-63); AST 304 U/L (15-37); Albumin 3.2 g/dL (3.4-5.0); Alkaline Phosphatase 54 U/L (46-116); Anion Gap 9.7 mmol/L (3-11); BUN 17 mg/dL (7-18); Bilirubin, Total 0.8 mg/dL (0.2-1.0); CO2 24.3 mmol/L (21.0-32.0); CREATININE 0.5 mg/dL (0.70-1.30); Calcium 8.6 mg/dL (8.5-10.1); Chloride 101 mmol/L (98-107); Glucose 101 mg/dL (74-106); Potassium 3.6 mmol/L (3.5-5.1); Sodium 135 mmol/L (136-145); Total Protein 6.1 g/dL (6.4-8.2)
[2020-06-04 17:52] LABS: Troponin I 4.56 ng/mL (<0.06)
[2020-06-04] MEDS: LORazepam 2 MG/ML VIAL 0.5 MG IVP (18:05)
[2020-06-04] MEDS: Normal Saline 1,000 ML 1000 ML IV ×2 (18:11→21:00)
[2020-06-04] MEDS: ACETAMINOPHEN 1,000 MG/100 ML BTL 400 MG IVPB (18:11)
[2020-06-04 18:13] LABS: Creatine Kinase 10614 U/L (39-308)
--- NOTE | 2020-06-04 18:15 | RT.EKG_ITS ---
APPROVED REPORT Exam: Resting ECG Patient Location: E HR:56 bpm ECG Measurements Heart Rate 56 AXIS NJ 216 P 30 QRSd 92 QRS 15 QT 485 T 17 QTc 467 Conclusion Sinus bradycardia...rate< 60 Atrial premature complex...SV complex w/ short R-R interval Borderline prolonged NJ interval...NJ >212, V-rate 50- 90
[2020-06-04 18:50] LABS: Bilirubin Negative (Negative); Blood Small (Negative); Clarity Clear (Clear); Glucose Negative (Negative); Ketones >=160 mg/dL (Negative); Leukocyte Esterase Negative (Negative); Nitrite Negative (Negative); Specific Gravity 1.025 (1.005-1.025); Urobilinogen 0.2 EU/dL (Up TO 0.2); pH 6.5 (5-8)
[2020-06-04 19:02] LABS: Bacteria Negative HPF (Negative); C & S Indicated? No; Casts Negative LPF (Negative); Crystals Negative HPF (Negative); Epithelial Cells Negative HPF (Negative); Mucus Trace (Negative); Other Cells Negative (Negative); WBC 0-2 HPF (0-5)
--- NOTE | 2020-06-04 19:09 | DI.VRAD_ITS ---
Addendum created by Kin Hameed MD on 06/04/2020 7:40:24 PM EDT: Coronal and sagittal cervical spine reformats demonstrate exaggerated cervical lordotic curvature. No acute fracture or malalignment. Initial report created on 06/04/2020 7:08:49 PM EDT: PROCEDURE INFORMATION: Exam: CT Head Without Contrast Exam date and time: 06/04/2020 6:37 PM Age: 80 years old Clinical indication: Injury or trauma; Fall; Blunt trauma (contusions or hematomas) TECHNIQUE: Imaging protocol: Computed tomography of the head without contrast. COMPARISON: No relevant prior studies available. FINDINGS: Brain: No hyperdense finding to suggest acute intracranial hemorrhage. Age appropriate, global cerebral atrophy. Old lacunar infarct in the right rosalba. Ill-defined foci of hypodensity in the periventricular white matter bilaterally consistent with chronic small vessel ischemic changes. No additional cerebral parenchymal abnormalities identified. Cerebral ventricles: Ventricular enlargement likely related to cerebral atrophy. Bones/joints: See Soft tissues finding. Paranasal sinuses: Visualized sinuses are unremarkable. No fluid levels. Mastoid air cells: Visualized mastoid air cells are well aerated. Soft tissues: Left posterolateral scalp contusion. No adjacent skull fracture. IMPRESSION: 1. No acute intracranial abnormalities identified. Specifically no CT evidence of mass, hemorrhage, or acute infarction. 2. Old lacunar infarct in the right rosalba. Age appropriate cerebral atrophy with chronic small vessel ischemic changes. 3. Left posterolateral scalp contusion. No adjacent skull fracture. PROCEDURE INFORMATION: Exam: CT Cervical Spine Without Contrast Exam date and time: 06/04/2020 6:37 PM Age: 80 years old Clinical indication: Injury or trauma; Fall; Blunt trauma (contusions or hematomas) TECHNIQUE: Imaging protocol: Computed tomography images of the cervical spine without contrast. COMPARISON: No relevant prior studies available. FINDINGS: Bones/joints: Exaggerated lordotic curvature of the cervical spine without evidence for spondylolysis or spondylolisthesis. No vertebral body compression. No fracture identified in the vertebral bodies, the posterior, or lateral facets. Discs/Spinal canal/Neural foramina: No significant disc protrusion. No severe spinal canal stenosis. No significant neural foraminal narrowing. Lungs: The visualized portions of the lung apices are clear. Soft tissues: Unremarkable. IMPRESSION: Exaggerated lordotic curvature of the cervical spine. No acute fracture or malalignment. Dictated and Authenticated by: Kin Hameed MD. Ordering:ALMA DELIA Espinal MD
--- NOTE | 2020-06-04 19:22 | DI.RAD_ITS ---
EXAM: XR HUMERUS LT CLINICAL HISTORY: s/p fall, r/o acute fx. TECHNIQUE: 2D digital imaging was performed. COMPARISON: No exams were available for comparison FINDINGS: There is no evidence of left humerus fracture nor dislocation. No abnormal soft tissue densities. N o osseous lesions. IMPRESSION: No humeral fracture evident. DATA REPOSITORY: RADIATION DOSE DELIVERED:
--- NOTE | 2020-06-04 19:22 | DI.RAD_ITS ---
EXAM: XR ELBOW LT COMPLETE CLINICAL HISTORY: s/p fall, r/o fx. TECHNIQUE: 2D digital imaging was performed. COMPARISON: CR,XR XR ELBOW RT COMPLETE from 06/04/2020 FINDINGS: Limited views-left elbow reveal what appears to be a possible subtle fracture of the lateral aspect o f the radial head. Recommend additional Coyles view of the radial head for added specificity. Epico ndyles appear unremarkable. IMPRESSION: As above. Recommend additional radial head specific Coyles view. DATA REPOSITORY: RADIATION DOSE DELIVERED:
--- NOTE | 2020-06-04 19:22 | DI.RAD_ITS ---
EXAM: XR ELBOW RT COMPLETE CLINICAL HISTORY: s/p fall, r/o fx. TECHNIQUE: 2D digital imaging was performed. COMPARISON: No exams were available for comparison FINDINGS: No obvious fracture but there does appear to be a elevation of the anterior fat pad indicating probab ly hemarthrosis. There is no swelling of the olecranon bursa. There is S very subtle irregularity o f the articular surface of the radial head noted. This may be a fracture. IMPRESSION: Possible very subtle nondisplaced fracture of the radial head. Joint effusion-hemarthrosis. DATA REPOSITORY: RADIATION DOSE DELIVERED:
[2020-06-04] MEDS: Aspirin 300 MG SUPP PR (19:23)
--- NOTE | 2020-06-04 19:25 | DI.VRAD_ITS ---
PROCEDURE INFORMATION: Exam: XR Left Elbow Exam date and time: 06/04/2020 7:14 PM Age: 80 years old Clinical indication: Injury or trauma; Fall; Blunt trauma (contusions or hematomas); Elbow; Left TECHNIQUE: Imaging protocol: XR Left elbow. Views: 3 or more views. COMPARISON: CR LEFT FOREARM 04/08/2015 6:36 PM FINDINGS: Bones/joints: Acute minimally displaced fracture of the left radial head with intra-articular extension. Left elbow joint hemarthrosis. Soft tissues: Normal. IMPRESSION: Acute minimally displaced fracture of the left radial head. Dictated and Authenticated by: Kin Hameed MD. Ordering:ALMA DELIA Espinal MD
--- NOTE | 2020-06-04 19:26 | DI.VRAD_ITS ---
PROCEDURE INFORMATION: Exam: XR Right Elbow Exam date and time: 06/04/2020 7:14 PM Age: 80 years old Clinical indication: Injury or trauma; Fall; Blunt trauma (contusions or hematomas); Elbow; Right TECHNIQUE: Imaging protocol: XR Right elbow. Views: 3 or more views. COMPARISON: No relevant prior studies available. FINDINGS: Bones/joints: Nondisplaced fracture of the right radial head. Joint hemarthrosis. Soft tissues: Normal. IMPRESSION: Nondisplaced fracture of the right radial head. Joint hemarthrosis. Dictated and Authenticated by: Kin Hameed MD. Ordering:ALMA DELIA Espinal MD
--- NOTE | 2020-06-04 19:27 | DI.CT_ITS ---
EXAM: CT CHEST PE ABD PELVIS W CLINICAL HISTORY: . TECHNIQUE: Imaging Protocol: Axial CT angiography was performed with multi-slice acquisition and m ulti-planar and/or 3D reconstructions. CONTRAST MATERIAL: Intravenous: Omnipaque 350 Contrast volume:100 ml Oral: None COMPARISON: CT scan 01/09/2019 FINDINGS: CHEST: PULMONARY ARTERIES: There are no intra-arterial filling defects to suggest the presence of acute pulm onary emboli. LUNGS: There is no evidence of pulmonary infarction.No pneumothorax. There are no pleural effusions. Dependent markings in both lung bases. MEDIASTINUM: There is no hilar nor mediastinal adenopathy. No mediastinal hematoma. CARDIAC: Mild cardiomegaly. No pericardial effusion.Caliber thoracic aorta is within normal limits. No evidence of significant aortic trauma. No dissection. OSSEOUS: No fractures.No significant osseous lesions.. ABDOMEN: There is no ascites. LIVER: There is a 1.2 centimeters cyst in the liver. No evidence of hepatic laceration. No perihepa tic fluid. GALLBLADDER/BILIARY: No obvious gallbladder pathology. CBD is not dilated. PANCREAS: No evidence of pancreatic mass nor dilatation of the pancreatic duct. SPLEEN: Spleen is not enlarged. There are no intrasplenic lesions. No splenic laceration. ADRENALS: There are no significant adrenal masses. KIDNEYS:Large cyst noted in the superior pole of the left kidney exhibiting 7 cm diameter. Large cys ts also noted of similar size in the opposite-right kidney with diameter 5.7 cm. No evidence of sign ificant renal trauma. No calculi nor hydronephrosis. No solid renal masses. ABDOMINAL AORTA: Intact. No injury. No aneurysm. Aortoiliac segments are also intact. No para-aor tic adenopathy. LYMPH NODES: There is no retroperitoneal or para-aortic adenopathy. ABDOMINAL WALL/GI: There is anterior abdominal hernia repair. No abnormality at this level noted. N o abnormal fluid collection. No bowel obstruction. PELVIS: LYMPH NODES: There is no intrapelvic nor inguinal adenopathy. GI: Abundant fecal material in the colon. No evidence of appendicitis.No evidence of sigmoid diverti culitis. URINARY BLADDER: No extravasation. REPRODUCTIVE: Prostate gland is enlarged and lobulated and contains enhancing nodules. Possible merlin y related to BPH versus neoplasm. OSSEOUS: No fractures. No significant osseous lesions. IMPRESSION: 1. No evidence of acute pulmonary emboli nor pulmonary infarction. 2. No evidence of aortic trauma. No significant acute intrathoracic injury. 3. Also no evidence of significant trauma in the abdomen and pelvis. 4. No fractures evident 5. Prostate gland is enlarged and exhibits multiple enhancing nodules. This may be related to BPH bu t cannot exclude malignancy. Correlation with PSA urology consult recommended. RADIATION DOSE DELIVERED: 1,368.65mGy.cm Total DLP DATA REPOSITORY: All CT scans at this facility are submitted to the National Radiology Data Registry (NRDR) Dose Index Registry (DIR) with the [employer] (ACR). RADIATION OPTIMIZATION: All CT scans at this facility use at least one of these dose optimization te chniques: automated exposure control; mA and/or kV adjustment per patient size (includes targeted exa ms where dose is matched to clinical indication); or iterative reconstruction.
--- NOTE | 2020-06-04 19:27 | DI.CT_ITS ---
EXAM: CT HEAD CERVICAL SPINE WO CLINICAL HISTORY: s/p fall, weakness, r/o acute fx, injury. TECHNIQUE: Imaging Protocol: Axial computed tomography images with coronal and sagittal reformatted images were created and reviewed COMPARISON: CT HEAD WITHOUT CONTRAST from 09/30/2012 FINDINGS: BRAIN: There are no skull fractures nor fluid in the visualized paranasal sinuses. There is no evidence of intracranial hemorrhage, mass effect, or shift of midline structures. There are no extra-axial fluid collections. The ventricles are not enlarged or shifted and there is no blo od within the ventricular system nor within the basal cisterns. There is a significant or infarct in the right side of the rosalba measuring 10 x 7 millimeters, not bruno dent in 2013. There is also increase in periventricular white matter hypodensity consistent with chr onic small vessel disease. No evidence of intracranial hemorrhage. No cerebellar tonsillar ectopia. CERVICAL SPINE: There is exaggerated curvature of the cervical spine noted. No fracture. No prominent listhesis. M ild retrolisthesis of C3 relative to C4 related to degenerative facet joint changes. C1-C2 level deb ear unremarkable. There is no evidence of fracture nor listhesis. No significant prevertebral soft tissue swelling. There is no significant facet joint malalignment. No significant osseous lesions evident. IMPRESSION: No acute intracranial findings on this noninfused CT scan of the brain.However, there are ischemic ch anges which have progressed since 2012. Most obvious is a 1 centimeter lacunar infarct in the centra l-right rosalba. This does not have acute appearance. If clinically indicated follow-up MRI with diffu devonte imaging can be performed. No evidence of cervical spine fracture, malalignment, nor acute compromise of the cervical spinal can al. Exaggerated cervical lordosis noted. RADIATION DOSE DELIVERED: 1,621.62mGy.cm Total DLP DATA REPOSITORY: All CT scans at this facility are submitted to the National Radiology Data Registry (NRDR) Dose Index Registry (DIR) with the [employer] (ACR). RADIATION OPTIMIZATION: All CT scans at this facility use at least one of these dose optimization te chniques: automated exposure control; mA and/or kV adjustment per patient size (includes targeted exa ms where dose is matched to clinical indication); or iterative reconstruction.
--- NOTE | 2020-06-04 19:39 | DI.VRAD_ITS ---
PROCEDURE INFORMATION: Exam: CTA Chest With Contrast Exam date and time: 06/04/2020 5:41 PM Age: 80 years old Clinical indication: Chest pain; Abdominal pain; Generalized TECHNIQUE: Imaging protocol: Computed tomographic angiography of the chest with contrast. 3D rendering (Not supervised by radiologist): MIP and/or 3D reconstructed images were created by the technologist. COMPARISON: CT CHEST PE CTA 01/09/2019 11:40 AM FINDINGS: Pulmonary arteries: Contrast fills the pulmonary artery and its branch vessels satisfactorily. No intraluminal filling defect to suggest pulmonary embolism. Aorta: Unremarkable. No aortic aneurysm. No aortic dissection. Lungs: Posterior bilateral dependent atelectasis. Mild medial right upper lobe foci of atelectasis. No contusions, consolidations, or pulmonary nodules. Pleural spaces: No pneumothorax or pleural effusions. Heart: Cardiomegaly with severe coronary artery calcifications. No hemopericardium. No retrosternal hematoma. Lymph nodes: Unremarkable. No enlarged lymph nodes. Bones/joints: Chronic superior mild T6 and T8 endplate deformities. No new wedge compression fractures. Marked kyphosis. Soft tissues: Unremarkable. IMPRESSION: 1. No acute soft tissue or vascular injury in the chest. 2. No osseous injury in the chest. PROCEDURE INFORMATION: Exam: CT Angiography Abdomen With Contrast Exam date and time: 06/04/2020 5:41 PM Age: 80 years old Clinical indication: Chest pain; Abdominal pain; Generalized TECHNIQUE: Imaging protocol: Computed tomographic angiography images of the abdomen with intravenous contrast material. 3D rendering (Not supervised by radiologist): MIP and/or 3D reconstructed images were created by the technologist. COMPARISON: CT CHEST PE CTA 01/09/2019 11:40 AM FINDINGS: Aorta: No aortic aneurysm. No aortic dissection. Celiac trunk and mesenteric arteries: No occlusion or significant stenosis. Renal arteries: No occlusion or significant stenosis. Liver: No hepatic laceration or perihepatic hematoma. Stable simple cyst in the right lobe of the liver measuring 1.2 cm. Gallbladder and bile ducts: Normal. No calcified stones. No ductal dilation. Pancreas: Normal. No ductal dilation. Spleen: No splenic laceration or perisplenic hematoma. Adrenals: Normal. No mass. Kidneys and ureters: Stable large simple left exophytic upper pole 7 mm renal cyst. Large lateral interpolar right 5.4 cm simple renal cyst. Stomach and bowel: Unremarkable. No obstruction. No mucosal thickening. Appendix: Normal appendix. No appendicitis. Lymph nodes: Unremarkable. No enlarged lymph nodes. Intraperitoneal space: Unremarkable. No free air. No significant fluid collection. Reproductive: Large foci of enhancement in the enlarged prostate gland. The largest in the right transitional zone measures 3.8 cm which may represent a BPH nodule although prostate cancer cannot be excluded. Bones/joints: Unremarkable. No acute fracture. No dislocation. Soft tissues: Stable postoperative changes of bilateral inguinal herniorrhaphy. IMPRESSION: 1. No solid or hollow viscus injury in the abdomen or pelvis. No acute osseous injury. 2. Multiple enhancing nodules in the enlarged prostate gland. While these may represent BPH nodules, prostate cancer cannot be excluded. Correlation with PSA and Urology consultation is recommended. Dictated and Authenticated by: Kin Hameed MD. Ordering:ALMA DELIA Espinal MD
[2020-06-04 19:41] LABS: Troponin I 5.44 ng/mL (<0.06)
--- NOTE | 2020-06-04 19:41 | DI.VRAD_ITS ---
PROCEDURE INFORMATION: Exam: XR Left Humerus Exam date and time: 06/04/2020 6:03 PM Age: 80 years old Clinical indication: Injury or trauma; Fall; Blunt trauma (contusions or hematomas); Arm, upper; Left TECHNIQUE: Imaging protocol: XR Left humerus. Views: 2 or more views. COMPARISON: CR XR ELBOW LT COMPLETE 06/04/2020 7:01 PM FINDINGS: Bones/joints: No acute fracture or dislocation. Lungs: The visualized lateral left lung is clear. Soft tissues: Normal. IMPRESSION: No acute fracture or dislocation. Dictated and Authenticated by: Kin Hameed MD. Ordering:ALMA DELIA Espinal MD
--- NOTE | 2020-06-04 21:03 | HPE_ITS ---
Date of service: 06/04/20 Time of Service: 21:03 Assessment and Plan Assessment and plan (1) Rhabdomyolysis: Status: Acute Assessment and plan: IV NS bolus x 2L given in ED. Cont NS infusion at 125ml/H. Monitor CK. Normal renal function. Low likelyhood of developing ILENE or renal failure; Na is not elevated, Hct and creatinine not elevated. Not septic. No hyperkalemia. Qualifiers: Rhabdomyolysis type: non-traumatic Qualified Code(s): M62.82 - Rhabdomyolysis (2) Elevated troponin: Status: Acute Assessment and plan: Discussed with [facility] cardiology and felt the elevations were related to his states of immobility and resultant rhabdomyolysis. Repeat (3rd) troponin ordered. Telemetry. Repeat EKG in AM and prn for any symptoms that may be cardiac related. (3) Contusion of elbow, left: Status: Acute Assessment and plan: Ortho evaluated x-rays. Sling for comfort. PRN acetaminophen. Voltaren topical gel QID. Qualifiers: Encounter type: initial encounter Qualified Code(s): S50.02XA - Contusion of left elbow, initial encounter (4) Contusion of elbow, right: Status: Acute Assessment and plan: See contusion of left elbow (5) Fall: Status: Acute Assessment and plan: Uses walker for imbalance. Has dx of peripheral neuropathy; not diabetic. PT consulted. (6) DVT prophylaxis: Status: Acute Assessment and plan: Lovenox SQ (7) Discharge planning issues: Status: Acute Assessment and plan: May require rehab before returning home. PT evaluation. Care management will be involved. (8) Hypertension: Status: Chronic Assessment and plan: SBP initially in the 140 and 150's. Was given a dose of lorazepam before scans. BP improved and is normotensive. On lisiopril at home; restart if BP indicates. Holding for now. Monitor. Qualifiers: Hypertension type: essential hypertension Qualified Code(s): I10 - Essential (primary) hypertension (9) Transaminitis: Status: Acute Assessment and plan: Previous values were noted to be normal. Monitor. History of Present Illness History of Present Illness Chief Complaint: Fall Narrative: This is a 80 yo male with a PMH of CVA, HTN, NSTEMI, malignant melanoma. He presented to the ED after a fall while walking outside with his walker. This occured 2 days prior to admission. He tried to crawl to his home but was too weak. He lay outside for 48 hours. He endorsed striking his head but no LOC, emesis, visual changes, neck pain, CP, SOA. He endorses bilateral elbow pain. His neighbor checked on him and found him on the ground. CT head, cervical spine, chest/abd/pelvis were negative for any acute findings. Bilateral elbow x-rays show radial head fractures per virtual rad. Ortho consulted in the ED and Dr. Verdugo reviewed the films and felt there was no obvious radial head fxs. Sling recommended for comfort. EKG showed NS with rate of 58, borderline ST elevation in anterior leads. No ST depression. ED physician consult [facility] cardiology. They believe the EKG is indicative of early repolarization. Recommended heparin drip. Initial troponin was elevated at 4.56; repeat 5.44. Pt continued to have no c/o CP, SOA. EKG appeared unchanged. [facility] cardiology spoken to again and felt this was not an NSTEMI; more consistent with metabolic abnormality / rhabdo. No available beds at [facility]. ED physician spoke with [facility] who felt the patient did not require [place] [address]. creatinine 0.5. BUN 17. Na 135 K+ 3.6. Mg+ 2.0. AST 304, ALT 75, Bilirubin 0.8. Total protein 6.1, albumin 3.2. WBC count mildly elevated at 11.15; no findings of any infectious process, including a negative UA. Covid screening unremarkable; Covid test pending. Of note, in the ED the patient was alert and interactive. Upon arrival to med- surg unit he was very lethargic d/t ativan and phenergan administered in ED. Review of Systems All systems reviewed & are unremarkable except as noted in HPI and below [facility] Medical History (Updated 06/04/20 @ 21:22 by Bon Peraza MD) Cerebral vascular disease Edema Heart disease Hypertension Maisonneuve fracture of left fibula (01/08/19) Malignant melanoma lower back; in situ Osteoporosis Poor personal hygiene Sensorineural hearing loss of combined sites, bilateral Stroke Surgical History S/P hernia repair Social History Smoking/Tobacco Use Status: Former Tobacco Use Smoking risk assessment performed?: Yes Alcohol Intake: current Alcohol Intake frequency: 3 or more drinks per day Alcohol type: wine and hard liquor Drug use: Never Substance use type: does not use Number of Children: 2 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 Estranged from his children. Moved from [place]. Meds Allergies and Home Medications Allergies Allergy/AdvReac Type Severity Reaction Status Date / Time No Known Allergies Allergy Verified 06/04/20 20:48 Home Medications Medication Instructions Recorded Confirmed Type aspirin 325 mg PO DAILY 09/30/12 06/04/20 History lisinopril 5 mg PO HS 09/30/12 06/04/20 History furosemide 20 mg tablet 40 mg PO DAILY 09/27/19 06/04/20 History clobetasol 1 applic TOPICAL BID PRN 06/04/20 06/04/20 History trazodone 50 - 100 mg PO HS 06/04/20 06/04/20 History Exam Narrative Exam Narrative: Pt received Ativan and phenergan in the ED; not lethargic. Const General: no acute distress, disheveled and frail appearing Nutritional Appearance: average body habitus Orientation: not alert and not awake HENMT Head: normocephalic and atraumatic Eyes Conjunctivae: conjunctivae normal Pupils: PERRL Resp Effort & Inspection: normal respiratory effort Auscultation: clear to auscultation bilaterally and diminished lung sounds Cardio Jugular venous pressure: no JVD Rate: bradycardic Rhythm: regular rhythm GI Palpation: soft, no guarding and nontender Skin General skin exam: abnormal elasticity Rashes: no rashes Trauma: abrasion (Left chest wall ) Wounds: no wounds Neuro General: moves all extremities and other (Lethargic d/t sedating meds.) Extrem General: edema Laterality: bilateral (tr) Results Labs Result diagrams: 06/04/20 17:08 06/04/20 17:08 Labs: Laboratory Results - last 24 hr 06/04/20 06/04/20 06/04/20 17:08 17:08 17:08 WBC RBC Hgb Hct MCV MCH MCHC RDW Plt Count MPV Immature Gran % Neutrophils % Lymphocytes % Monocytes % Eosinophils % Basophils % Nucleated RBC % Absolute Neutrophils Absolute Lymphocytes Absolute Monocytes Absolute Eosinophils Absolute Basophils PT 15.0 H INR 1.5 H APTT 24.2 Sodium 135 L Potassium 3.6 Chloride 101 Carbon Dioxide 24.3 Anion Gap 9.7 BUN 17 Creatinine 0.5 L Estimated GFR/1.73 m2 >= 60.00 Glucose 101 Calcium 8.6 Magnesium 2.0 Total Bilirubin 0.8 AST 304 H ALT 75 H Alkaline Phosphatase 54 Creatine Kinase 31456 H Troponin I 4.56 H* Total Protein 6.1 L Albumin 3.2 L Urine Color Urine Clarity Urine pH Ur Specific Fenton Urine Protein Urine Ketones Urine Blood Urine Nitrite Urine Bilirubin Urine Urobilinogen Ur Leukocyte Esterase Urine RBC Urine WBC Ur Epithelial Cells Urine Crystals Urine Bacteria Urine Casts Urine Mucus Urine Other Ur Culture Indicated? Urine Glucose 06/04/20 06/04/20 06/04/20 17:08 18:28 19:00 WBC 11.15 H RBC 3.78 L Hgb 12.3 L Hct 35.4 L MCV 93.7 MCH 32.5 MCHC 34.7 RDW 11.7 L Plt Count 205 MPV 8.8 Immature Gran % 0.4 Neutrophils % 87.2 Lymphocytes % 5.9 Monocytes % 6.4 Eosinophils % 0.0 Basophils % 0.1 Nucleated RBC % 0 Absolute Neutrophils 9.72 H Absolute Lymphocytes 0.66 L Absolute Monocytes 0.71 Absolute Eosinophils 0.00 Absolute Basophils 0.01 PT INR APTT Sodium Potassium Chloride Carbon Dioxide Anion Gap BUN Creatinine Estimated GFR/1.73 m2 Glucose Calcium Magnesium Total Bilirubin AST ALT Alkaline Phosphatase Creatine Kinase Troponin I 5.44 H* Total Protein Albumin Urine Color Yellow Urine Clarity Clear Urine pH 6.5 Ur Specific Fenton 1.025 Urine Protein 30 H Urine Ketones >=160 H Urine Blood Small H Urine Nitrite Negative Urine Bilirubin Negative Urine Urobilinogen 0.2 Ur Leukocyte Esterase Negative Urine RBC 3-5 H Urine WBC 0-2 Ur Epithelial Cells Negative Urine Crystals Negative Urine Bacteria Negative Urine Casts Negative Urine Mucus Trace Urine Other Negative Ur Culture Indicated? No Urine Glucose Negative Last Vital Signs Temp 37.2 C 06/04/20 16:28 Pulse 61 06/04/20 20:46 Resp 15 06/04/20 20:46 BP 112/61 06/04/20 20:46 Pulse Ox 100 04/14/21 20:46 COVID-19 Screening Have you, or household traveled for leisure in last 14 days?: No Had IN PERSON contact w/suspected or confirmed C-19 person: No
[2020-06-04 21:14] LABS: Source Nasal/Nares
[2020-06-04] MEDS: Normal Saline Flush 10 ML SYR IVP (22:08)
[2020-06-04] MEDS: Normal Saline - Diluent 50 ML VIAL IV (22:09)
[2020-06-04] MEDS: Normal Saline 1,000 ML 150 ML IV (22:56)
--- NOTE | 2020-06-04 23:14 | NUR.NOTE ---
Patient presented to the Med-Surg unit this night he is unkempt looking. Patient presented to the floor very drowsy, answers to name only able to state where he is. Pt opens his right eye when name is called but his left eye appears lazy and does not open. Patient does not maintain conversation. He is not interactive due to his current disposition. He has multiple bruises, thoracic area, left shoulder and upper arm, left hip. While doing assessment, patient void what appears to be bloody urine and blood cloth noted in urine CC made aware of findings.
[2020-06-05] VITALS (9 sets, daily range): BP systolic 110–131; BP diastolic 63–73; PULSE 57–74; RESP 17–20; TEMP 36.8–38; O2SAT 90–98
--- NOTE | 2020-06-05 | DI.US_ITS ---
APPROVED REPORT EXAM: Comprehensive 2D, Doppler, and color-flow Echocardiogram Patient Location: In-Patient Room/Bed: [address] Radio Operator: Marleny Humphrey RDCS (AE) Indications: HTN, elevated troponin,?NSTEMI Other Information Study Quality: Fair. Technically limited study due to body habitus, inability to position patient. Conclusion Normal left ventricular wall thickness and chamber size. Estimated ejection fraction is 60%. There are no segmental wall motion abnormalities Right ventricle appears grossly normal in size and systolic function The left atrium is normal in size. The right atrium is not well visualized There are no structural valvular abnormalities Mild mitral regurgitation Trace pulmonic and tricuspid regurgitation. Normal estimated right ventricular systolic pressure Mildly dilated ascending aorta 3.71 cm Wall motion Left Ventricle The left ventricle is normal size. The left ventricular systolic function is normal. The left ventric ular ejection fraction is within the normal range. There is normal left ventricular wall thickness. T here is normal LV segmental wall motion. There is no ventricular septal defect visualized. LVEF is 60 %. Right Ventricle Right ventricle is grossly normal in size. Right ventricle is grossly normal in size. Right ventricle is borderline dilated. Right ventricle is mildly dilated. The right ventricular systolic function is normal. The RVSP is 24.5mmHg. Atria The left atrium size is normal. Right atrium is not well visualized. The interatrial septum is intact with no evidence for an atrial septal defect. Saline bubble contrast intravenous injection demonstra salvatore PFO. Aortic Valve The aortic valve is normal in structure. Aortic valve is trileaflet. There is no aortic valvular sten osis. No aortic regurgitation is present. Mitral Valve The mitral valve is normal in structure. No evidence of mitral valve stenosis. mild mitral regurgitat ion. Tricuspid Valve The tricuspid valve is normal in structure. There is no tricuspid valve stenosis. Trace tricuspid reg urgitation. Pulmonic Valve The pulmonary valve is normal in structure. There is no pulmonic valvular stenosis. Trace pulmonic re gurgitation. Great Vessels The aortic root is normal in size. The ascending aorta is mildly dilated.3.71 cm Aortic arch is veronika l in caliber. IVC is normal in size and collapses >50% with inspiration. Pericardium There is no pericardial effusion. 2D Dimensions IVSD d PLAX 1.15 cm M: 0.6-1.2 LV Vol A2C d MOD 89.4 mL LVPW d PLAX 1.09 cm M: 0.6 - 1.2 LV Vol A4C d MOD 115.1 mL LVID d PLAX 4.27 cm M: 4.2 - 5.8 LA vol/ BSA A2C s A-L 26.6 mL/m2 LVDs 2.75 cm M: 2.5 - 4.0 LA vol/ BSA A4C s A-L 31.3 mL/m2 Ao Root d 3.65 cm M: 3.1 - 3.7 LA Vol/ BSA Biplane s A-L 29.1 mL/m2 Ao Asc Diam d 3.71 cm M: 2.6 - 3.4 LA Area A4C s MOD 20.58 cm2 LV EF Teichholz 64.2 % LA Area A2C s MOD 19.16 cm2 LVEF (Hand's) 61.00 % M: 52 - 72 LV EF A4C MOD 60.5 % LV Volume 77.77 mL M: 62 - 150 LV EF A2C MOD 59.7 % LV Volume Index 38.50 mL/m2 M: 34 - 74 LV EF Biplane MOD 61.0 % LV Vol Biplane MOD 104.1 mL SV 63.50 mL FS 34.65 % SV Index 31.38 mL/m2 M-Mode TAPSE 2.03 cm (M/F) >1.7 LV Diastology MV E' medial 0.085 (>0.07 m/s) E/A Ratio 0.9 LV E/e MED 7.15 (<14) MV E Vmax 0.61 (0.4-1.3 m/s) MV E' lateral 0.103 (>0.1 m/s) MV A Vmax 0.70 (0.4-1.3 m/s) LV E/e LAT 5.90 (<14) MV E/A Ratio 0.87 MV E/E' medial 7.18 MV E/E' lateral 5.92 Aortic Valve LVOT Area 3.18 cm2 AoV Area Vmax 2.44 cm2 LVOT Vmax 0.97 m/s AoV Area/ BSA (Vmax) 1.21 cm2/m2 LVOT Mean Ilir. 0.61 m/s ELIZABETH Mean Ilir. 2.16 cm2 LVOT Peak Grad 3.8 mmHg ELIZABETH Mean Ilir. Index 1.07 cm2/m2 LVOT Mean Grad 1.8 mmHg LVOT VTI 0.225 m LVOT Diam s 2.00 cm AoV Vmax 1.27 m/s Velocity Ratio 0.76 AoV Mean Ilir. 0.90 m/s AoV Peak Grad 6.4 mmHg LVOT SV 71.54 mL AoV Mean Grad 3.6 mmHg AoV VTI 0.256 m AoV Area VTI 2.79 cm2 AoV Area/ BSA (VTI) 1.38 cm/m2 Mitral Valve MV DT 385 (160-240 msec) MR Vmax 4.69 m/s MV PHT 112 msec MR VTI 1.389 m MV Area PHT 1.97 cm2 MR Peak Grad 88.1 mmHg MV VTI 0.297 m MR Mean Grad 64.9 mmHg MV VTI Annulus 0.318 m MV Area VTI 2.60 (4.0-6.0 cm2) Pulmonary Valve PV Vmax 0.86 (0.5-1.5 m/s) RVOT Peak Gr. 1.91 mmHg PV Peak Grad 3.0 mmHg RVOT Mean Gr. 0.95 mmHg PV Mean Grad 1.7 mmHg RVOT VTI 0.136 m PV VTI 0.200 m RVOT Vmax 0.69 m/s Tricuspid Valve TR Peak Grad 21.4 mmHg TR Vmax 2.32 m/s RA Pressure 3.00 mmHg RVSP (TR) 24.5 mmHg
[2020-06-05 00:06] LABS: Troponin I 3.83 ng/mL (<0.06)
[2020-06-05 00:55] LABS: COVID-19 PCR Negative (Negative)
--- NOTE | 2020-06-05 01:17 | DI.VRAD_ITS ---
PROCEDURE INFORMATION: Exam: CT Thoracic Spine Without Contrast Exam date and time: 06/04/2020 11:40 PM Age: 80 years old Clinical indication: Injury or trauma; Fall; Blunt trauma (contusions or hematomas); Additional info: Recons from previous cta pe chest, abd/pelvis with contrast TECHNIQUE: Imaging protocol: Computed tomography images of the thoracic spine without contrast. Radiation optimization: All CT scans at this facility use at least one of these dose optimization techniques: automated exposure control; mA and/or kV adjustment per patient size (includes targeted exams where dose is matched to clinical indication); or iterative reconstruction. COMPARISON: No relevant prior studies available. FINDINGS: Vertebrae: There are mild endplate compressions of T6, T8 and T9. These are most likely chronic with sclerosis and osteophytes seen in these segments. No significant change present compared to the prior study 01/09/2019. There is an exaggerated kyphosis of the upper thoracic spine. This is slightly more pronounced compared to 01/09/2019. Spinal alignment is otherwise normal. The facet joints show no evidence of significant degeneration. Discs/Spinal canal/Neural foramina: Bert-nb-dcqdenfu degenerative disc changes extending from T3-T4 through T10-T11. Mild narrowing of the intervertebral discs present. There are degenerative osteophytes and sclerosis seen anteriorly predominantly extending from T5-T6 through T10-T11. No evidence of central spinal canal narrowing. Soft tissues: There are no soft tissue calcifications or masses. Stomach and bowel: Please see chest CT for description of viscera. IMPRESSION: 1. No evidence of acute thoracic spine injury. 2. Chronic degenerative changes as described 3. Lbpc-yl-ugmjuvat degenerative disc changes extending from T3-T4 through T10-T11. 4. There is an exaggerated kyphosis of the upper thoracic spine. This is slightly more pronounced compared to 01/09/2019. Spinal alignment is otherwise normal. PROCEDURE INFORMATION: Exam: CT Lumbar Spine Without Contrast Exam date and time: 06/04/2020 11:40 PM Age: 80 years old Clinical indication: Injury or trauma; Fall; Blunt trauma (contusions or hematomas); Additional info: Recons from previous cta pe chest, abd/pelvis with contrast TECHNIQUE: Imaging protocol: Computed tomography images of the lumbar spine without contrast. Radiation optimization: All CT scans at this facility use at least one of these dose optimization techniques: automated exposure control; mA and/or kV adjustment per patient size (includes targeted exams where dose is matched to clinical indication); or iterative reconstruction. COMPARISON: No relevant prior studies available. FINDINGS: Please see CT of the abdomen and pelvis for visceral findings. Vertebrae: There is no evidence of compression fractures or deformities. Spinal alignment is normal. There is no evidence of degenerative osteophytosis or sclerosis. Wsdi-zq-groekhmw degenerative changes of the facets bilaterally. T12-L1: No evidence of significant bulge, protrusion or extrusion. No evidence ligamentum flavum hypertrophy or facet hypertrophy. No evidence of significant central spinal stenosis or neural foraminal narrowing. L1-L2: No evidence of significant bulge, protrusion or extrusion. No evidence ligamentum flavum hypertrophy or facet hypertrophy. No evidence of significant central spinal stenosis or neural foraminal narrowing. L2-L3: Mild to moderate broad-based bulge of the disc with moderate posterior component, mild facet and ligamentum flavum hypertrophy resulting in mild to moderate central spinal stenosis mild right and mild left neural foraminal narrowing. L3-L4: Broad-based bulge of the disc with a moderate posterior component, mild ligamentum flavum and mild facet hypertrophy resulting in mild to moderate central spinal stenosis mild right and mild left neural foraminal narrowing. L4-L5: Broad-based bulge of the disc with a moderate posterior component, mild to moderate facet hypertrophy and mcju-ho-dksofesu ligamentum flavum hypertrophy resulting and mild to moderate central spinal stenosis and bilateral mild neural foraminal narrowing. L5-S1: Mild disc space narrowing seen at L3-L4, L4-L5 and L5-S1. Mild broad-based bulge of the disc with mild posterior component. No significant central spinal stenosis or neural foraminal narrowing identified. Sacrum/coccyx: The sacroiliac joints show xdur-qf-zbilehuq degenerative changes. Soft tissues: There are no soft tissue calcifications or masses. IMPRESSION: 1. Chronic degenerative disc disease at the lumbosacral spine as described above. 2. No evidence of acute fracture subluxation of the lumbosacral spine. Dictated and Authenticated by: Jeremiah Mccullough MD. Ordering:ALMA DELIA Espinal MD
[2020-06-05 02:01] LABS: PTT Activated 52.4 sec (21.0-27.5)
[2020-06-05] MEDS: Normal Saline 1,000 ML 150 ML IV ×3 (05:28→19:55)
[2020-06-05 07:20] LABS: Abs Immature Grans 0.03 10^3/uL (0.0-0.06); Absolute Basophil Count 0.03 10^3/uL (0.0-0.2); Absolute Lymphocyte Count 1.22 10^3/uL (1.2-3.4); Absolute Monocyte Count 0.76 10^3/uL (0.1-0.8); Absolute Neutrophil Count 6.87 10^3/uL (1.2-6.7); Basophils % 0.3; HGB 10.8 g/dL (13.5-17.5); Immature Grans % 0.3; Lymphocytes % 13.7; MCH 32.7 pg (27.0-33.0); MCHC 34.8 % (32.0-36.0); MCV 93.9 fL (80-95); MPV 9.6 fL (8.0-11.0); Monocytes % 8.5; Neutrophils % 77.2; Nucleated RBC 0 %; Platelet Count 198 10^3/uL (130-400); RDW 11.9 % (11.8-14.1); RDW-SD 41.2 fL; WBC 8.91 10^3/uL (4.4-10.8)
[2020-06-05 07:35] LABS: ALT 67 U/L (16-63); AST 248 U/L (15-37); Albumin 2.5 g/dL (3.4-5.0); Alkaline Phosphatase 42 U/L (46-116); Anion Gap 9.8 mmol/L (3-11); BUN 18 mg/dL (7-18); Bilirubin, Total 0.7 mg/dL (0.2-1.0); CO2 23.2 mmol/L (21.0-32.0); CREATININE 0.5 mg/dL (0.70-1.30); Chloride 105 mmol/L (98-107); Glucose 83 mg/dL (74-106); INR 1.5 (0.9-1.1); PHOSPHORUS 2.9 mg/dL (2.6-4.7); PTT Activated 35.9 sec (21.0-27.5); Potassium 3.8 mmol/L (3.5-5.1); Prothrombin Time 15.3 sec (9.3-11.0); Sodium 138 mmol/L (136-145); Total Protein 4.9 g/dL (6.4-8.2)
[2020-06-05 07:39] LABS: Troponin I 3.75 ng/mL (<0.06)
[2020-06-05 07:41] LABS: Creatine Kinase 5839 U/L (39-308)
--- NOTE | 2020-06-05 09:00 | RT.EKG_ITS ---
APPROVED REPORT Exam: Resting ECG Patient Location: I HR:61 bpm ECG Measurements Heart Rate 61 AXIS NH 153 P 265 QRSd 94 QRS 25 QT 455 T 32 QTc 459 Conclusion Ectopic atrial rhythm...abnormal P axis, normal rate Low voltage, extremity leads...all extremity leads <0.5mV
--- NOTE | 2020-06-05 09:34 | CCONE_ITS ---
Date of service: 06/05/20 Time of Service: 09:34 Assessment and Plan Assessment and plan (1) Rhabdomyolysis: Status: Acute Qualifiers: Rhabdomyolysis type: non-traumatic Qualified Code(s): M62.82 - Rhabdomyolysis (2) Elevated troponin: Status: Acute (3) History of balance disorder: Status: Acute (4) Cerebral vascular disease: Status: Acute (5) Hypertension: Status: Chronic Assessment and plan: This elderly gentleman has suffered a fall and was then immobile for 48 hours suffering rhabdomyolysis. I believe his troponin elevation is on that basis, not cardiac His EKG shows no acute changes and except for a borderline OK interval is within normal limits It would be reasonable to repeat his echo I see no indication to repeat any type of myocardial perfusion imaging study, as he had a normal MPI in 2019 Low-dose aspirin is reasonable He should be advised to moderate his alcohol intake Physical therapy is planned. This will be essential to determine disposition at the time of discharge. For the opportunity to participate in the care of this patient Please do not hesitate to contact me if additional questions or concerns arise Qualifiers: Hypertension type: essential hypertension Qualified Code(s): I10 - Essential (primary) hypertension History of Present Illness History of Present Illness Chief Complaint: Fall, elevated troponin Narrative: This is an unfortunate 80-year-old man who was brought to the hospital yesterday after he was discovered lying outside, having fallen and been unable to return to his home. Reportedly he laid on the ground for approxima tely 2 days before he was discovered by a neighbor. He was brought to the emergency room where he was found to have a CPK greater than 10,000, a troponin of 4.64 and multiple contusions. His electrocardiogram did not show any acute changes, with borderline first-degree AV block, otherwise unremarkable Patient has a history of prior fall and elevated troponin notably in December 2018 when he suffered left leg fracture. His troponin then was 0.64. His EKG then also did not show any acute changes. He subsequently did have cardiac evaluation that included an echocardiogram demonstrating normal left ventricular systolic function, normal wall motion, moderate mitral regurgitation. He had a myocardial perfusion imaging study in the summer 2019 - for myocardial ischemia Patient has risk factors for coronary disease. He has longstanding hypertension. He has chronic peripheral edema. He reportedly consumes significant alcohol. He has a past history of stroke According to the chart, he has been experiencing progressive weakness and difficulty ambulating and has suffered other falls that did not result in hospitalization Consults Consult date: 06/05/20 Requesting physician: Nena Ac Review of Systems Narrative: The patient is lethargic and review of systems could not be obtained other than he is not in pain and expresses no other concerns [facility] Medical History Cerebral vascular disease Edema Heart disease Hypertension Maisonneuve fracture of left fibula (01/08/19) Malignant melanoma lower back; in situ Osteoporosis Poor personal hygiene Sensorineural hearing loss of combined sites, bilateral Stroke Surgical History S/P hernia repair Social History Smoking/Tobacco Use Status: Former Tobacco Use Smoking risk assessment performed?: Yes Alcohol Intake: current Alcohol Intake frequency: 3 or more drinks per day Alcohol type: wine and hard liquor Drug use: Never Substance use type: does not use Number of Children: 2 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 Estranged from his children. Moved from [place]. Exam Narrative Exam Narrative: Frail chronically ill-appearing elderly man, lethargic, arouses to name Eyes Pupils: PERRL Neck Neck: normal visual inspection Carotids: normal carotid upstroke and no bruits Other: No V waves, no elevated JVP Resp Auscultation: clear to auscultation bilaterally Cardio Palpation: normal PMI Rate: regular rate Rhythm: regular rhythm Heart Sounds: S1 normal and S2 normal Pulses: dorsalis pedis present Other: Soft systolic murmur Skin General skin exam: crusts, dry skin and ecchymosis Extrem Other: Trace to 1+ pitting edema on the right, 1+ on the left, intact dorsalis pedis pulses Results Last Vital Signs Temp 37.6 C H 06/05/20 06:52 Pulse 59 L 06/05/20 07:16 Resp 19 06/05/20 06:52 BP 112/63 06/05/20 06:52 Pulse Ox 96 06/05/20 06:52 Labs Result diagrams: 06/05/20 06:28 06/05/20 06:28 Labs: Laboratory Results - last 24 hr 06/04/20 06/04/20 06/04/20 17:08 17:08 17:08 WBC RBC Hgb Hct MCV MCH MCHC RDW Plt Count MPV Immature Gran % Neutrophils % Lymphocytes % Monocytes % Eosinophils % Basophils % Nucleated RBC % Absolute Neutrophils Absolute Lymphocytes Absolute Monocytes Absolute Eosinophils Absolute Basophils PT 15.0 H INR 1.5 H APTT 24.2 Sodium 135 L Potassium 3.6 Chloride 101 Carbon Dioxide 24.3 Anion Gap 9.7 BUN 17 Creatinine 0.5 L Estimated GFR/1.73 m2 >= 60.00 Glucose 101 Calcium 8.6 Phosphorus Magnesium 2.0 Total Bilirubin 0.8 AST 304 H ALT 75 H Alkaline Phosphatase 54 Creatine Kinase 91309 H Troponin I 4.56 H* Total Protein 6.1 L Albumin 3.2 L Urine Color Urine Clarity Urine pH Ur Specific [place] Urine Protein Urine Ketones Urine Blood Urine Nitrite Urine Bilirubin Urine Urobilinogen Ur Leukocyte Esterase Urine RBC Urine WBC Ur Epithelial Cells Urine Crystals Urine Bacteria Urine Casts Urine Mucus Urine Other Ur Culture Indicated? Urine Glucose COVID-19 Source SARS-CoV-2 (PCR) 06/04/20 06/04/20 06/04/20 17:08 18:28 19:00 WBC 11.15 H RBC 3.78 L Hgb 12.3 L Hct 35.4 L MCV 93.7 MCH 32.5 MCHC 34.7 RDW 11.7 L Plt Count 205 MPV 8.8 Immature Gran % 0.4 Neutrophils % 87.2 Lymphocytes % 5.9 Monocytes % 6.4 Eosinophils % 0.0 Basophils % 0.1 Nucleated RBC % 0 Absolute Neutrophils 9.72 H Absolute Lymphocytes 0.66 L Absolute Monocytes 0.71 Absolute Eosinophils 0.00 Absolute Basophils 0.01 PT INR APTT Sodium Potassium Chloride Carbon Dioxide Anion Gap BUN Creatinine Estimated GFR/1.73 m2 Glucose Calcium Phosphorus Magnesium Total Bilirubin AST ALT Alkaline Phosphatase Creatine Kinase Troponin I 5.44 H* Total Protein Albumin Urine Color Yellow Urine Clarity Clear Urine pH 6.5 Ur Specific [place] 1.025 Urine Protein 30 H Urine Ketones >=160 H Urine Blood Small H Urine Nitrite Negative Urine Bilirubin Negative Urine Urobilinogen 0.2 Ur Leukocyte Esterase Negative Urine RBC 3-5 H Urine WBC 0-2 Ur Epithelial Cells Negative Urine Crystals Negative Urine Bacteria Negative Urine Casts Negative Urine Mucus Trace Urine Other Negative Ur Culture Indicated? No Urine Glucose Negative COVID-19 Source SARS-CoV-2 (PCR) 06/04/20 06/04/20 06/04/20 20:19 21:01 23:35 WBC RBC Hgb Hct MCV MCH MCHC RDW Plt Count MPV Immature Gran % Neutrophils % Lymphocytes % Monocytes % Eosinophils % Basophils % Nucleated RBC % Absolute Neutrophils Absolute Lymphocytes Absolute Monocytes Absolute Eosinophils Absolute Basophils PT INR APTT Sodium Potassium Chloride Carbon Dioxide Anion Gap BUN Creatinine Estimated GFR/1.73 m2 Glucose Calcium Phosphorus Magnesium Total Bilirubin AST ALT Alkaline Phosphatase Creatine Kinase Troponin I Cancelled 3.83 H* Total Protein Albumin Urine Color Urine Clarity Urine pH Ur Specific [place] Urine Protein Urine Ketones Urine Blood Urine Nitrite Urine Bilirubin Urine Urobilinogen Ur Leukocyte Esterase Urine RBC Urine WBC Ur Epithelial Cells Urine Crystals Urine Bacteria Urine Casts Urine Mucus Urine Other Ur Culture Indicated? Urine Glucose COVID-19 Source Nasal/nares SARS-CoV-2 (PCR) Negative 06/05/20 06/05/20 06/05/20 01:40 06:28 06:28 WBC RBC Hgb Hct MCV MCH MCHC RDW Plt Count MPV Immature Gran % Neutrophils % Lymphocytes % Monocytes % Eosinophils % Basophils % Nucleated RBC % Absolute Neutrophils Absolute Lymphocytes Absolute Monocytes Absolute Eosinophils Absolute Basophils PT INR APTT 52.4 H D Sodium 138 Potassium 3.8 Chloride 105 Carbon Dioxide 23.2 Anion Gap 9.8 BUN 18 Creatinine 0.5 L Estimated GFR/1.73 m2 >= 60.00 Glucose 83 Calcium 8.0 L Phosphorus 2.9 Magnesium Total Bilirubin 0.7 AST 248 H ALT 67 H Alkaline Phosphatase 42 L Creatine Kinase 5839 H Troponin I 3.75 H* Total Protein 4.9 L Albumin 2.5 L Urine Color Urine Clarity Urine pH Ur Specific [place] Urine Protein Urine Ketones Urine Blood Urine Nitrite Urine Bilirubin Urine Urobilinogen Ur Leukocyte Esterase Urine RBC Urine WBC Ur Epithelial Cells Urine Crystals Urine Bacteria Urine Casts Urine Mucus Urine Other Ur Culture Indicated? Urine Glucose COVID-19 Source SARS-CoV-2 (PCR) 06/05/20 06/05/20 06/05/20 06:28 06:28 06:28 WBC 8.91 RBC 3.30 L Hgb 10.8 L Hct 31.0 L MCV 93.9 MCH 32.7 MCHC 34.8 RDW 11.9 Plt Count 198 MPV 9.6 Immature Gran % 0.3 Neutrophils % 77.2 Lymphocytes % 13.7 Monocytes % 8.5 Eosinophils % 0.0 Basophils % 0.3 Nucleated RBC % 0 Absolute Neutrophils 6.87 H Absolute Lymphocytes 1.22 Absolute Monocytes 0.76 Absolute Eosinophils 0.00 Absolute Basophils 0.03 PT Cancelled 15.3 H INR Cancelled 1.5 H APTT 35.9 H D Sodium Potassium Chloride Carbon Dioxide Anion Gap BUN Creatinine Estimated GFR/1.73 m2 Glucose Calcium Phosphorus Magnesium Total Bilirubin AST ALT Alkaline Phosphatase Creatine Kinase Troponin I Total Protein Albumin Urine Color Urine Clarity Urine pH Ur Specific [place] Urine Protein Urine Ketones Urine Blood Urine Nitrite Urine Bilirubin Urine Urobilinogen Ur Leukocyte Esterase Urine RBC Urine WBC Ur Epithelial Cells Urine Crystals Urine Bacteria Urine Casts Urine Mucus Urine Other Ur Culture Indicated? Urine Glucose COVID-19 Source SARS-CoV-2 (PCR)
--- NOTE | 2020-06-05 10:43 | PT.INIE ---
Date of service: 06/05/20 Time of Service: 16:38 PT Notes Visit Reasons: RHABDOMYOLYSIS Physical Therapy Inpatient Initial Evaluation Date: 06/05/2020 Referring Doctor: Bon Back MD PT Orders: PT CONSULT: Eval/treat. Precautions: Fall. Standard. Activity as tolerated. Patient Profile/Admitting Diagnosis: Husam is a 80-year-old male with past medical history significant for cerebrovascular disease and frequent falls who presented to the ED on 06/04/2020 due to a fall while walking outside with his walker. Patient reportedly down on the ground for 2 days before he was found. Patient is diagnosed with rhabdomyolysis, elevated troponin, encephalopathy, contusion of left elbow, fall, and transaminitis. PMHX: Medical History (Updated 06/04/20 @ 21:22 by Bon Peraza MD) Cerebral vascular disease Edema Heart disease Hypertension Maisonneuve fracture of left fibula (01/08/19) Malignant melanoma lower back; in situ Osteoporosis Poor personal hygiene Sensorineural hearing loss of combined sites, bilateral Stroke Surgical History S/P hernia repair Social History/Home Situation: Patient lives alone in a one-level home with 5 steps to enter and a rail on the left going up. He is independent with all aspects of ADLs and has managed to do them without any need for an adaptive equipment nor assistive ambulatory devices. Equipment Owned/DME: Front wheel walker, single-point cane Subjective: Patient is somnolent and unable to open both eyes. He however responds to questions appropriately when asked. Objective: General Observation: Supine in bed. IV in the left UE. Left leg and foot swelling. Telemetry monitoring in place. Mental Status: Somnolent. Able to respond appropriately to questions however unable to pay attention and focus to tasks. Pain: Unable to quantify low back pain ROM: Unable to test at this time due to poor alertness level Strength: Unable to test at this time due to poor alertness level Bed Mobility/Transfers: Rolling maximal assist Supine to sit maximal assist Sit to supine maximal assist Sit to stand unable to test at this time due to poor alertness level Stand to sit unable to test at this time due to pooralertness level Bed to chair unable to test at this time due to poor alertness level Chair to bed unable to test at this time due to poor alertness level Gait: Unable to test at this time due to poor alertness level Balance: Static Sitting: Poor Dynamic Sitting: Poor Static Standing: Unable to test at this time due to poor alertness level Dynamic Standing: Unable to test at this time due to poor alertness level Special Tests: Mobility Limitations Standardized [facility] AM-PAC 6 clicks Basic Mobility Inpatient Short Form: Raw Score: 6 CMS Score: 100% deficit Informed Consent/Education: Attempted to instruct patient in purpose of PT consult and plan of care. Somewhat agreeable to proceed with established PT POC to achieve personal goals. Will follow up regarding PT services in the next session. Assessment: Mobility assessment is significantly limited today by patient's poor alertness level, fatigue, generalized weakness from rhabdomyolysis, and encephalopathy. Will continue to assess mobility level once patient becomes more appropriate and safe. Patient will benefit from longterm facility placement for continued skilled physical therapy services in order to progress mobility level, strength, and balance in preparation for a safe discharge to home. Patient presents with clinical signs and symptoms consistent with current/admitting diagnoses that have resulted to mobility limitations, gait instability, generalized weakness, and impairment of motor control as demonstrated by the following impairment level findings: 1. Decreased strength to BUE/LE major muscle groups 2. Impaired sitting/standing balance 3. Impaired activity tolerance 4. Limitation of joint range of motion in B UE/LE 5. Somnolence 6. Swelling in left leg and foot Impairments are contributing to the following functional limitations: 1. Dependent bed mobility skills 2. Increased dependence with transfers 3. Inability to participate in further mobility assessment due to poor alertness level 4. Inability to return to prior living environment at this time Patient is assessed as a 42365 high complexity based on the following: History: 80-year-old male with past medical history as indicated above Examination: Demonstrable impairment in strength, balance, and mobility level with underlying impairments and functional limitations as exhibited above as well as deficit score of 100% utilizing the [facility] Mobility Inpatient Short Form Presentation: Evolving Decision Makin high complexity Goals: Goals X1 week 1. Supine-Sit standby assist 2. Sit-Supine standby assist 3. Sit-Stand contact-guard assist 4. Stand-Sit contact-guard assist 5. Bed-Chair contact-guard assist 6. Chair-Bed contact-guard assist 7. Minimal assist gait on level surface with use of [] for at least [] feet without report of pain nor dyspnea 8. Minimal assist stair negotiation while holding onto [] rails for at least [] steps without report of pain nor dyspnea 9. Fair static and dynamic standing balance/tolerance Plan of Care/Treatment Plan: 1-2x/day, 7 days/week x 1 week. Plan of care has been reviewed with the ENERGY CONTROL OFFICER providing the service under Physical Therapy direction. Initiate Physical Therapy intervention for strengthening, bed mobility, transfers, gait, stairs, balance training, and use of assistive device. DISCHARGE RECOMMENDATIONS: Patient will benefit from longterm facility placement for continued skilled physical therapy services in order to progress mobility level, strength, and balance in preparation for a safe discharge to home. TREATMENT CODE/TIME: 89192 x 21 minutes beginning at 10:43 AM. Thank you for the opportunity to participate in the care of this patient. Guerita Zaragoza PT, DPT, CLT [facility] [place], [place]
[2020-06-05] MEDS: Normal Saline Flush 10 ML SYR IVP (11:25)
[2020-06-05] MEDS: Furosemide 20 MG/2 ML VIAL IVP (11:26)
--- NOTE | 2020-06-05 11:59 | PHA.REVIEW ---
Pharmacy Admission Review - Admission Clinical Review (Last Reviewed 06/05/20 @ 09:38 by Riddhi Retneria MD) Transaminitis (Acute) Rhabdomyolysis (Acute) Elevated troponin (Acute) Contusion of elbow, left (Acute) Contusion of elbow, right (Acute) Fall (Acute) History of balance disorder (Acute) Cerebral vascular disease (Acute) Discharge planning issues (Acute) DVT prophylaxis (Acute) No Known Allergies Allergy (Verified 06/04/20 20:48) Height 5 ft 10 in Weight 84.8 kg RHABDOMYOLYSIS - Comments Comments/Follow Ups: Need to rule out NStemi based on positive troponin's...was found down ~48hrs, lives alone. Echo today, patient very sedated, not able to work with PT. Cardiology consult: states no cardiac workup necessary - Renal Dosing Renal Dosing: BUN 18 mg/dL (7-18) 06/05/20 06:28 Creatinine 0.5 mg/dL (0.70-1.30) L 06/05/20 06:28 Medications needing adjustments: Reviewed (CrCl~78ml/min) - Anticoagulation Anticoagulation: Hgb 10.8 g/dL (13.5-17.5) L 06/05/20 06:28 Hct 31.0 % (40.0-50.0) L 06/05/20 06:28 Plt Count 198 10^3/uL (130-400) 06/05/20 06:28 INR 1.5 (0.9-1.1) H 06/05/20 06:28 INR Cancelled 06/05/20 06:28 Creatinine 0.5 mg/dL (0.70-1.30) L 06/05/20 06:28 DVT Prohphylaxis: Reviewed Medications: Aspirin (ASA 325mg, Heparin infusion dc'd...pink/stewart urine, H/H down) - Opiate Usage Evaluate Pain Scale/Pains Meds: N/A - Relevant Labs Sodium 138 mmol/L (136-145) 06/05/20 06:28 Potassium 3.8 mmol/L (3.5-5.1) 06/05/20 06:28 Chloride 105 mmol/L (98-107) 06/05/20 06:28 Phosphorus 2.9 mg/dL (2.6-4.7) 06/05/20 06:28 Magnesium 2.0 mg/dL (1.8-2.4) 06/04/20 17:08 Electrolytes, C-Reactive P, ESR: Reviewed (LFT's elevated, H/H down 10.8/31.0, Creatinine kinase 75069 down to 5839) - DM Control DM Control: Glucose 83 mg/dL (74-106) 06/05/20 06:28 Insulin Dosing: N/A - Heart Failure/WY Heart Failure/[place]: Troponin I 3.75 ng/mL (<0.06) H* 06/05/20 06:28 EF%, ELLE's, B-Blockers, Diuretics: Reviewed (Positive Troponin's x4, secondary to Rhabdo but will rule out N-STEMI, Lasix) - BP Control BP Control: Blood Pressure 112/63 Blood Pressure 112/72 Blood Pressure 124/70 If elevated: Reviewed - Qtc Review If Elevated: Reviewed (QTC 459) - IV to PO Switch IV Medications: Reviewed (Lasix) - Home Meds Home Med List reviewed: Reviewed Relevent Home Meds Not ordered & why?: Trazodone-sedated from Lorazepam prior to imaging, Lisinopril-held, low HR/soft BP's - Current meds Current Medication Order Review: Reviewed (If BP's become elevated, will need home dose of Lisinopril)
--- NOTE | 2020-06-05 12:15 | PDOC.CMIN ---
- If Service Date Differs Date of service: 06/05/20 Time of Service: 12:15 Care Management Initial Assess REASON FOR HOSPITALIZATION:: Rhabdomyolysis. PAST MEDICAL HISTORY/PAST SURGICAL HISTORY:: Medical History: Cerebral vascular disease, Edema, Heart disease, Hypertension, Maisonneuve fracture of left fibula (01/08/19), Malignant melanoma - lower back; in situ, Osteoporosis, Poor personal hygiene,. Sensorineural hearing loss of combined sites, bilateral, and Stroke. Surgical History: S/P hernia repair. PREVIOUS FUNCTIONAL STATUS/SOCIAL/FAMILY SUPPORTS:: Husam lives alone in [place] with his cat. He reports he moved to [place] approximately 20 years ago from [place], [place]. 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 Husam reports he has one good friend, Preeti, who is supportive of him. CURRENT FUNCTIONAL STATUS:: Husam is sitting up in bed when CM comes to meet with him. He is pleasant, talkative and shares he is hopeful he will be going to a intermediate from the hospital, as he is realizing he is too weak to continue caring for himself. Husam states he has been at [facility] in the past, really enjoyed being there, and is open to returning to the facility. With CM's assistance, Husam telephones Preeti to ask her to care for his cat in his absence. CM will continue to follow. ADVANCE DIRECTIVES:: On file; friend Alexi Espana is listed as Health Care Agent. Has patient been provided with info about the portal/API?: Yes Did the patient sign up for the portal?: Yes (Previously enrolled.) CODE STATUS:: DNR/DNI INSURANCE COVERAGE / FINANCIAL ISSUES:: BCBS and Medicare. CURRENT HOME/COMMUNITY SERVICES/EQUIPMENT:: Husam owns a FWW. He does not have any home or community services. PRIMARY CARE PHYSICIAN:: MARICARMEN Rod POTENTIAL DISCHARGE NEEDS:: Follow up appointments with PCP, washing machine loader and puller and urology. Will also likely require rehab to regain strength before returning home. PATIENT/FAMILY EDUCATION NEEDS:: Discharge instructions, limitations, follow up plan of care, including Ask Me Three and self management. ANTICIPATED BARRIERS TO DISCHARGE:: No anticipated barriers at this time. TRANSPORTATION:: To be determined based on disposition. PLAN:: Anticipate Husam will need a rehab stay to regain strength prior to returning home. He will follow up with his PCP, washing machine loader and puller, urologist, and discharge plan of care as directed. Transport remains to be determined based on disposition. CM will continue to support Husam and discharge planning needs.
[2020-06-05] MEDS: Diclofenac 1% Gel 100 GM TUBE TP ×3 (12:18→19:52)
[2020-06-05 14:56] LABS: Ammonia 44 umol/L (11-32)
--- NOTE | 2020-06-05 15:04 | W.UROLOGYCON ---
Date of service: 06/05/20 Time of Service: 15:05 Assessment and Plan Assessment and plan (1) Rhabdomyolysis: Status: Acute Assessment and plan: Once the catheter is no longer required for accurate input and output measurements, there is no contraindication to removing the catheter. Qualifiers: Rhabdomyolysis type: non-traumatic Qualified Code(s): M62.82 - Rhabdomyolysis History of Present Illness History of Present Illness Chief Complaint: Rhabdomyolysis Narrative: This is a 80 gentleman who is currently hospitalized with rhabdomyolysis. On his presentation, urethral catheterization was attempted by the staff in the emergency room. The catheter could not be placed and gross blood was obtained. Since that time, he has been voiding with periods of incontinence. I have been asked to place a catheter for accurate I/O. The patient tells me he has not had a catheter previously. I am not aware of any prior urologic surgery or urologic history. Review of Systems Constitutional Comments: He denies any fever or chills He denies any abdominal pain, nausea or vomiting [facility] Medical History Cerebral vascular disease Edema Heart disease Hypertension [place]uve fracture of left fibula (01/08/19) Malignant melanoma lower back; in situ Osteoporosis Poor personal hygiene Sensorineural hearing loss of combined sites, bilateral Stroke Surgical History S/P hernia repair Social History Smoking/Tobacco Use Status: Former Tobacco Use Smoking risk assessment performed?: Yes Alcohol Intake: current Alcohol Intake frequency: 3 or more drinks per day Alcohol type: wine and hard liquor Drug use: Never Substance use type: does not use Number of Children: 2 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 Estranged from his children. Moved from [place]. Exam Narrative Exam Narrative: He does not open his eyes to look at me, but he is conversant with me. He appears chronically ill. He does not appear septic or toxic His abdomen is soft with some suprapubic fullness He is awake and alert Results Last Vital Signs Temp 37.6 C H 06/05/20 06:52 Pulse 59 L 06/05/20 07:16 Resp 19 06/05/20 06:52 BP 112/63 06/05/20 06:52 Pulse Ox 96 06/05/20 06:52 Labs Result diagrams: 06/05/20 06:28 06/05/20 06:28 Labs: Laboratory Results - last 24 hr 06/04/20 06/04/20 06/04/20 17:08 17:08 17:08 WBC RBC Hgb Hct MCV MCH MCHC RDW Plt Count MPV Immature Gran % Neutrophils % Lymphocytes % Monocytes % Eosinophils % Basophils % Nucleated RBC % Absolute Neutrophils Absolute Lymphocytes Absolute Monocytes Absolute Eosinophils Absolute Basophils PT 15.0 H INR 1.5 H APTT 24.2 Sodium 135 L Potassium 3.6 Chloride 101 Carbon Dioxide 24.3 Anion Gap 9.7 BUN 17 Creatinine 0.5 L Estimated GFR/1.73 m2 >= 60.00 Glucose 101 Calcium 8.6 Phosphorus Magnesium 2.0 Total Bilirubin 0.8 AST 304 H ALT 75 H Alkaline Phosphatase 54 Ammonia Creatine Kinase 10579 H Troponin I 4.56 H* Total Protein 6.1 L Albumin 3.2 L Urine Color Urine Clarity Urine pH Ur Specific [place] Urine Protein Urine Ketones Urine Blood Urine Nitrite Urine Bilirubin Urine Urobilinogen Ur Leukocyte Esterase Urine RBC Urine WBC Ur Epithelial Cells Urine Crystals Urine Bacteria Urine Casts Urine Mucus Urine Other Ur Culture Indicated? Urine Glucose COVID-19 Source SARS-CoV-2 (PCR) 06/04/20 06/04/20 06/04/20 17:08 18:28 19:00 WBC 11.15 H RBC 3.78 L Hgb 12.3 L Hct 35.4 L MCV 93.7 MCH 32.5 MCHC 34.7 RDW 11.7 L Plt Count 205 MPV 8.8 Immature Gran % 0.4 Neutrophils % 87.2 Lymphocytes % 5.9 Monocytes % 6.4 Eosinophils % 0.0 Basophils % 0.1 Nucleated RBC % 0 Absolute Neutrophils 9.72 H Absolute Lymphocytes 0.66 L Absolute Monocytes 0.71 Absolute Eosinophils 0.00 Absolute Basophils 0.01 PT INR APTT Sodium Potassium Chloride Carbon Dioxide Anion Gap BUN Creatinine Estimated GFR/1.73 m2 Glucose Calcium Phosphorus Magnesium Total Bilirubin AST ALT Alkaline Phosphatase Ammonia Creatine Kinase Troponin I 5.44 H* Total Protein Albumin Urine Color Yellow Urine Clarity Clear Urine pH 6.5 Ur Specific [place] 1.025 Urine Protein 30 H Urine Ketones >=160 H Urine Blood Small H Urine Nitrite Negative Urine Bilirubin Negative Urine Urobilinogen 0.2 Ur Leukocyte Esterase Negative Urine RBC 3-5 H Urine WBC 0-2 Ur Epithelial Cells Negative Urine Crystals Negative Urine Bacteria Negative Urine Casts Negative Urine Mucus Trace Urine Other Negative Ur Culture Indicated? No Urine Glucose Negative COVID-19 Source SARS-CoV-2 (PCR) 06/04/20 06/04/20 06/04/20 20:19 21:01 23:35 WBC RBC Hgb Hct MCV MCH MCHC RDW Plt Count MPV Immature Gran % Neutrophils % Lymphocytes % Monocytes % Eosinophils % Basophils % Nucleated RBC % Absolute Neutrophils Absolute Lymphocytes Absolute Monocytes Absolute Eosinophils Absolute Basophils PT INR APTT Sodium Potassium Chloride Carbon Dioxide Anion Gap BUN Creatinine Estimated GFR/1.73 m2 Glucose Calcium Phosphorus Magnesium Total Bilirubin AST ALT Alkaline Phosphatase Ammonia Creatine Kinase Troponin I Cancelled 3.83 H* Total Protein Albumin Urine Color Urine Clarity Urine pH Ur Specific [place] Urine Protein Urine Ketones Urine Blood Urine Nitrite Urine Bilirubin Urine Urobilinogen Ur Leukocyte Esterase Urine RBC Urine WBC Ur Epithelial Cells Urine Crystals Urine Bacteria Urine Casts Urine Mucus Urine Other Ur Culture Indicated? Urine Glucose COVID-19 Source Nasal/nares SARS-CoV-2 (PCR) Negative 06/05/20 06/05/20 06/05/20 01:40 06:28 06:28 WBC RBC Hgb Hct MCV MCH MCHC RDW Plt Count MPV Immature Gran % Neutrophils % Lymphocytes % Monocytes % Eosinophils % Basophils % Nucleated RBC % Absolute Neutrophils Absolute Lymphocytes Absolute Monocytes Absolute Eosinophils Absolute Basophils PT INR APTT 52.4 H D Sodium 138 Potassium 3.8 Chloride 105 Carbon Dioxide 23.2 Anion Gap 9.8 BUN 18 Creatinine 0.5 L Estimated GFR/1.73 m2 >= 60.00 Glucose 83 Calcium 8.0 L Phosphorus 2.9 Magnesium Total Bilirubin 0.7 AST 248 H ALT 67 H Alkaline Phosphatase 42 L Ammonia Creatine Kinase 5839 H Troponin I 3.75 H* Total Protein 4.9 L Albumin 2.5 L Urine Color Urine Clarity Urine pH Ur Specific [place] Urine Protein Urine Ketones Urine Blood Urine Nitrite Urine Bilirubin Urine Urobilinogen Ur Leukocyte Esterase Urine RBC Urine WBC Ur Epithelial Cells Urine Crystals Urine Bacteria Urine Casts Urine Mucus Urine Other Ur Culture Indicated? Urine Glucose COVID-19 Source SARS-CoV-2 (PCR) 06/05/20 06/05/20 06/05/20 06:28 06:28 06:28 WBC 8.91 RBC 3.30 L Hgb 10.8 L Hct 31.0 L MCV 93.9 MCH 32.7 MCHC 34.8 RDW 11.9 Plt Count 198 MPV 9.6 Immature Gran % 0.3 Neutrophils % 77.2 Lymphocytes % 13.7 Monocytes % 8.5 Eosinophils % 0.0 Basophils % 0.3 Nucleated RBC % 0 Absolute Neutrophils 6.87 H Absolute Lymphocytes 1.22 Absolute Monocytes 0.76 Absolute Eosinophils 0.00 Absolute Basophils 0.03 PT Cancelled 15.3 H INR Cancelled 1.5 H APTT 35.9 H D Sodium Potassium Chloride Carbon Dioxide Anion Gap BUN Creatinine Estimated GFR/1.73 m2 Glucose Calcium Phosphorus Magnesium Total Bilirubin AST ALT Alkaline Phosphatase Ammonia Creatine Kinase Troponin I Total Protein Albumin Urine Color Urine Clarity Urine pH Ur Specific [place] Urine Protein Urine Ketones Urine Blood Urine Nitrite Urine Bilirubin Urine Urobilinogen Ur Leukocyte Esterase Urine RBC Urine WBC Ur Epithelial Cells Urine Crystals Urine Bacteria Urine Casts Urine Mucus Urine Other Ur Culture Indicated? Urine Glucose COVID-19 Source SARS-CoV-2 (PCR) 06/05/20 06/05/20 14:08 14:35 WBC RBC Hgb Hct MCV MCH MCHC RDW Plt Count MPV Immature Gran % Neutrophils % Lymphocytes % Monocytes % Eosinophils % Basophils % Nucleated RBC % Absolute Neutrophils Absolute Lymphocytes Absolute Monocytes Absolute Eosinophils Absolute Basophils PT INR APTT 34.0 H Sodium Potassium Chloride Carbon Dioxide Anion Gap BUN Creatinine Estimated GFR/1.73 m2 Glucose Calcium Phosphorus Magnesium Total Bilirubin AST ALT Alkaline Phosphatase Ammonia 44 H Creatine Kinase Troponin I Total Protein Albumin Urine Color Urine Clarity Urine pH Ur Specific [place] Urine Protein Urine Ketones Urine Blood Urine Nitrite Urine Bilirubin Urine Urobilinogen Ur Leukocyte Esterase Urine RBC Urine WBC Ur Epithelial Cells Urine Crystals Urine Bacteria Urine Casts Urine Mucus Urine Other Ur Culture Indicated? Urine Glucose COVID-19 Source SARS-CoV-2 (PCR) Insert Bladder Catheter Text: The patient's genitalia was prepped. 2% Xylocaine jelly was instilled into the urethra to act as a local anesthetic. A 16 Syriac coud? tipped catheter was then passed through the urethra into the bladder. The catheter balloon was inflated with 10 cc of sterile water. Approximately 900 cc of clear urine was obtained. He tolerated this procedure well.
--- NOTE | 2020-06-05 15:54 | W.PM.PROGNOT ---
Date of Service Date of service: 06/05/20 Time of Service: 15:54 Assessment and Plan Assessment and plan (1) Rhabdomyolysis: Status: Acute Assessment and plan: Presumably from the fall. Given depressed mental status, we should also consider other etiologies (?seizure). Will get an EEG. Continue IVF with lasix prn. Qualifiers: Rhabdomyolysis type: non-traumatic Qualified Code(s): M62.82 - Rhabdomyolysis (2) Elevated troponin: Status: Acute Assessment and plan: Due to rhabdomyolysis. Continue asa (the patient is normally on full dose, so consider downgrading it). Will monitor on tele also since seizures are being suspected. (3) Encephalopathy acute: Status: Acute Assessment and plan: Does have elevated ammonia - will start lactulose. Obtain EEG. Consider MRI brain (4) Transaminitis: Status: Acute Assessment and plan: Likely in setting of rhabdo. CT w/o liver abnormalities. Obtain US liver (5) History of balance disorder: Status: Acute Assessment and plan: PT consult (6) DVT prophylaxis: Status: Acute Assessment and plan: sc heparin (7) Discharge planning issues: Status: Acute Assessment and plan: DNR/DNI Palliative care consult. PT consult. Subjective Subjective Interval history since last seen: Nursing has noted that the patient has been lethargic most of the day, yet easily arousable and follows commands and answers questions appropriately. He denies headache, neck pain, dizziness, chest pain, shortness of breath, nausea. He was evaluated by cardiology, who felt the patient's troponin elevation was due to rhabdo. Exam Narrative Exam Narrative: General: Pleasant, lethargic elderly male who looks dehydrated HEENT: EOMI, dry MM, poor oral hygiene Heart: RRR, no m/r/ g Lungs: CTAB Abdomen: soft, nontender, nondistended Extremities: +1 edema BLE's, slightly worse on the left Objective Last Vital Signs Temp 37.6 C H 06/05/20 06:52 Pulse 59 L 06/05/20 07:16 Resp 19 06/05/20 06:52 BP 112/63 06/05/20 06:52 Pulse Ox 96 06/05/20 06:52 Laboratory Results - last 24 hr 06/04/20 06/04/20 06/04/20 17:08 17:08 17:08 WBC RBC Hgb Hct MCV MCH MCHC RDW Plt Count MPV Immature Gran % Neutrophils % Lymphocytes % Monocytes % Eosinophils % Basophils % Nucleated RBC % Absolute Neutrophils Absolute Lymphocytes Absolute Monocytes Absolute Eosinophils Absolute Basophils PT 15.0 H INR 1.5 H APTT 24.2 Sodium 135 L Potassium 3.6 Chloride 101 Carbon Dioxide 24.3 Anion Gap 9.7 BUN 17 Creatinine 0.5 L Estimated GFR/1.73 m2 >= 60.00 Glucose 101 Calcium 8.6 Phosphorus Magnesium 2.0 Total Bilirubin 0.8 AST 304 H ALT 75 H Alkaline Phosphatase 54 Ammonia Creatine Kinase 96354 H Troponin I 4.56 H* Total Protein 6.1 L Albumin 3.2 L Urine Color Urine Clarity Urine pH Ur Specific [place] Urine Protein Urine Ketones Urine Blood Urine Nitrite Urine Bilirubin Urine Urobilinogen Ur Leukocyte Esterase Urine RBC Urine WBC Ur Epithelial Cells Urine Crystals Urine Bacteria Urine Casts Urine Mucus Urine Other Ur Culture Indicated? Urine Glucose COVID-19 Source SARS-CoV-2 (PCR) 06/04/20 06/04/20 06/04/20 17:08 18:28 19:00 WBC 11.15 H RBC 3.78 L Hgb 12.3 L Hct 35.4 L MCV 93.7 MCH 32.5 MCHC 34.7 RDW 11.7 L Plt Count 205 MPV 8.8 Immature Gran % 0.4 Neutrophils % 87.2 Lymphocytes % 5.9 Monocytes % 6.4 Eosinophils % 0.0 Basophils % 0.1 Nucleated RBC % 0 Absolute Neutrophils 9.72 H Absolute Lymphocytes 0.66 L Absolute Monocytes 0.71 Absolute Eosinophils 0.00 Absolute Basophils 0.01 PT INR APTT Sodium Potassium Chloride Carbon Dioxide Anion Gap BUN Creatinine Estimated GFR/1.73 m2 Glucose Calcium Phosphorus Magnesium Total Bilirubin AST ALT Alkaline Phosphatase Ammonia Creatine Kinase Troponin I 5.44 H* Total Protein Albumin Urine Color Yellow Urine Clarity Clear Urine pH 6.5 Ur Specific [place] 1.025 Urine Protein 30 H Urine Ketones >=160 H Urine Blood Small H Urine Nitrite Negative Urine Bilirubin Negative Urine Urobilinogen 0.2 Ur Leukocyte Esterase Negative Urine RBC 3-5 H Urine WBC 0-2 Ur Epithelial Cells Negative Urine Crystals Negative Urine Bacteria Negative Urine Casts Negative Urine Mucus Trace Urine Other Negative Ur Culture Indicated? No Urine Glucose Negative COVID-19 Source SARS-CoV-2 (PCR) 06/04/20 06/04/20 06/04/20 20:19 21:01 23:35 WBC RBC Hgb Hct MCV MCH MCHC RDW Plt Count MPV Immature Gran % Neutrophils % Lymphocytes % Monocytes % Eosinophils % Basophils % Nucleated RBC % Absolute Neutrophils Absolute Lymphocytes Absolute Monocytes Absolute Eosinophils Absolute Basophils PT INR APTT Sodium Potassium Chloride Carbon Dioxide Anion Gap BUN Creatinine Estimated GFR/1.73 m2 Glucose Calcium Phosphorus Magnesium Total Bilirubin AST ALT Alkaline Phosphatase Ammonia Creatine Kinase Troponin I Cancelled 3.83 H* Total Protein Albumin Urine Color Urine Clarity Urine pH Ur Specific [place] Urine Protein Urine Ketones Urine Blood Urine Nitrite Urine Bilirubin Urine Urobilinogen Ur Leukocyte Esterase Urine RBC Urine WBC Ur Epithelial Cells Urine Crystals Urine Bacteria Urine Casts Urine Mucus Urine Other Ur Culture Indicated? Urine Glucose COVID-19 Source Nasal/nares SARS-CoV-2 (PCR) Negative 06/05/20 06/05/20 06/05/20 01:40 06:28 06:28 WBC RBC Hgb Hct MCV MCH MCHC RDW Plt Count MPV Immature Gran % Neutrophils % Lymphocytes % Monocytes % Eosinophils % Basophils % Nucleated RBC % Absolute Neutrophils Absolute Lymphocytes Absolute Monocytes Absolute Eosinophils Absolute Basophils PT INR APTT 52.4 H D Sodium 138 Potassium 3.8 Chloride 105 Carbon Dioxide 23.2 Anion Gap 9.8 BUN 18 Creatinine 0.5 L Estimated GFR/1.73 m2 >= 60.00 Glucose 83 Calcium 8.0 L Phosphorus 2.9 Magnesium Total Bilirubin 0.7 AST 248 H ALT 67 H Alkaline Phosphatase 42 L Ammonia Creatine Kinase 5839 H Troponin I 3.75 H* Total Protein 4.9 L Albumin 2.5 L Urine Color Urine Clarity Urine pH Ur Specific [place] Urine Protein Urine Ketones Urine Blood Urine Nitrite Urine Bilirubin Urine Urobilinogen Ur Leukocyte Esterase Urine RBC Urine WBC Ur Epithelial Cells Urine Crystals Urine Bacteria Urine Casts Urine Mucus Urine Other Ur Culture Indicated? Urine Glucose COVID-19 Source SARS-CoV-2 (PCR) 06/05/20 06/05/20 06/05/20 06:28 06:28 06:28 WBC 8.91 RBC 3.30 L Hgb 10.8 L Hct 31.0 L MCV 93.9 MCH 32.7 MCHC 34.8 RDW 11.9 Plt Count 198 MPV 9.6 Immature Gran % 0.3 Neutrophils % 77.2 Lymphocytes % 13.7 Monocytes % 8.5 Eosinophils % 0.0 Basophils % 0.3 Nucleated RBC % 0 Absolute Neutrophils 6.87 H Absolute Lymphocytes 1.22 Absolute Monocytes 0.76 Absolute Eosinophils 0.00 Absolute Basophils 0.03 PT Cancelled 15.3 H INR Cancelled 1.5 H APTT 35.9 H D Sodium Potassium Chloride Carbon Dioxide Anion Gap BUN Creatinine Estimated GFR/1.73 m2 Glucose Calcium Phosphorus Magnesium Total Bilirubin AST ALT Alkaline Phosphatase Ammonia Creatine Kinase Troponin I Total Protein Albumin Urine Color Urine Clarity Urine pH Ur Specific [place] Urine Protein Urine Ketones Urine Blood Urine Nitrite Urine Bilirubin Urine Urobilinogen Ur Leukocyte Esterase Urine RBC Urine WBC Ur Epithelial Cells Urine Crystals Urine Bacteria Urine Casts Urine Mucus Urine Other Ur Culture Indicated? Urine Glucose COVID-19 Source SARS-CoV-2 (PCR) 06/05/20 06/05/20 14:08 14:35 WBC RBC Hgb Hct MCV MCH MCHC RDW Plt Count MPV Immature Gran % Neutrophils % Lymphocytes % Monocytes % Eosinophils % Basophils % Nucleated RBC % Absolute Neutrophils Absolute Lymphocytes Absolute Monocytes Absolute Eosinophils Absolute Basophils PT INR APTT 34.0 H Sodium Potassium Chloride Carbon Dioxide Anion Gap BUN Creatinine Estimated GFR/1.73 m2 Glucose Calcium Phosphorus Magnesium Total Bilirubin AST ALT Alkaline Phosphatase Ammonia 44 H Creatine Kinase Troponin I Total Protein Albumin Urine Color Urine Clarity Urine pH Ur Specific [place] Urine Protein Urine Ketones Urine Blood Urine Nitrite Urine Bilirubin Urine Urobilinogen Ur Leukocyte Esterase Urine RBC Urine WBC Ur Epithelial Cells Urine Crystals Urine Bacteria Urine Casts Urine Mucus Urine Other Ur Culture Indicated? Urine Glucose COVID-19 Source SARS-CoV-2 (PCR)
--- NOTE | 2020-06-05 19:37 | NUR.NOTE ---
Nursing Note: 06/05/20 19:37 This RN answered a phone call from patient's daughter (Diana Del Rio) who is on patient's HIPAA. This RN provided a general update on patient's condition and why he is here, the daughter had not yet been notified and was concerned, reports being thankful for the update and less concerned following update. This RN provided verbal education to patient's daughter about our visitation policy, and she reported she would call back the [facility] line to speak with someone else about the visitation policy. This RN provided family independence case manager, Pam, with the daughter's phone number. Patient briefly spoke with his daughter on the phone, and reported to this nurse that his daughter would probably be less worried about him once she receives more information. This RN validated patient's response, said to patient that she's probably worried about you to which the patient responded I am, too. Charge nurse Cherrie notified following call.
[2020-06-05] MEDS: Lactulose 20 GM/30 ML CUP PO (19:52)
[2020-06-06] VITALS (8 sets, daily range): BP systolic 120–127; BP diastolic 67–71; PULSE 50–75; RESP 14–22; TEMP 36.1–37.4; O2SAT 94–99
--- NOTE | 2020-06-06 | DI.US_ITS ---
EXAM: US CAROTID CLINICAL HISTORY: acute CVA TECHNIQUE: Ultrasound performed using standard protocol. COMPARISON: US US ABDOMEN from 06/06/2020 FINDINGS: Duplex evaluation of the carotid circulation was performed according to the usual protocol. There is mild visible atheromatous plaque at the carotid bifurcation bilaterally, right greater than left. T here is bilateral antegrade vertebral flow. Flow velocities in the common, internal, and external carotid arteries are within normal limits bilat erally. IMPRESSION: No evidence of a hemodynamically significant carotid stenosis. DATA REPOSITORY:
--- NOTE | 2020-06-06 | DI.MRI_ITS ---
EXAM: MR BRAIN WO/W CLINICAL HISTORY: AMS, ?seizure, h/o melanoma and ?prostate ca TECHNIQUE: Multiplanar multisequence MRI of the brain was performed. CONTRAST MATERIAL: IV Contrast: 16 ML of Dotarem contrast administered. COMPARISON: No exams were available for comparison FINDINGS: The examination is limited due to patient motion artifact. VENTRICLES AND EXTRA AXIAL SPACES: There is global cerebral atrophy. HEMORRHAGE: None. CEREBRAL PARENCHYMA: There are few small foci of restricted diffusion in the left malloy radiata cons istent with acute/subacute infarct. There are areas of hyperintense signal in the white matter on th e FLAIR and T2 weighted images consistent with small vessel ischemic disease. 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 MIDLINE SHIFT: None. BRAINSTEM/CEREBELLUM: Normal. CALVARIUM: Normal. ENHANCEMENT: No suspicious enhancement identified. VISUALIZED PARANASAL SINUSES/MASTOIDS: Clear. WALES OF COKER: Normal flow void. PITUITARY GLAND: Unremarkable. OTHER FINDINGS: IMPRESSION: 1. There are few foci of restricted diffusion in the left malloy radiata consistent with a subacute i nfarct. 2. No intracranial mass or enhancing lesion. 3. Cerebral atrophy and small vessel ischemic disease. 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 DATA REPOSITORY:
[2020-06-06] MEDS: Normal Saline 1,000 ML 150 ML IV ×4 (01:58→22:59)
[2020-06-06 07:21] LABS: Ammonia 30 umol/L (11-32)
[2020-06-06 07:24] LABS: HCT 29.5 % (40.0-50.0); HGB 10.2 g/dL (13.5-17.5); MCH 32.9 pg (27.0-33.0); MCHC 34.6 % (32.0-36.0); MCV 95.2 fL (80-95); MPV 9.1 fL (8.0-11.0); Platelet Count 162 10^3/uL (130-400); RDW 11.9 % (11.8-14.1); RDW-SD 40.9 fL; WBC 9.53 10^3/uL (4.4-10.8)
[2020-06-06 07:25] LABS: PTT Activated 23.7 sec (21.0-27.5)
[2020-06-06 07:45] LABS: Anion Gap 7.7 mmol/L (3-11); BUN 12 mg/dL (7-18); CO2 25.3 mmol/L (21.0-32.0); CREATININE 0.5 mg/dL (0.70-1.30); Calcium 7.8 mg/dL (8.5-10.1); Chloride 108 mmol/L (98-107); Glucose 106 mg/dL (74-106); Magnesium 1.8 mg/dL (1.8-2.4); Potassium 3.7 mmol/L (3.5-5.1); Sodium 141 mmol/L (136-145)
[2020-06-06 07:47] LABS: Creatine Kinase 3268 U/L (39-308)
--- NOTE | 2020-06-06 08:00 | DI.US_ITS ---
EXAM: US ABDOMEN CLINICAL HISTORY: ? cirrhosis TECHNIQUE: Ultrasound abdomen performed using standard protocol. COMPARISON: No exams were available for comparison FINDINGS: Examination limited due to overlying bowel and limited patient mobility. ABDOMINAL AORTA AND IVC: Visualized portions normal caliber. PANCREAS: Normal where visualized. LIVER: Normal echogenicity. Hepatopedal flow in the Portal Vein. The liver measures 16.2 cm in lengt h. There is a 1.2 x 1.1 x 1.1 cm simple hepatic cyst. GALLBLADDER: No evidence of cholelithiasis. No evidence of wall thickening. No pericholecystic fluid identified. BILIARY SYSTEM: Common bile duct measures < 7 mm. No intrahepatic biliary ductal dilation. SANCHEZ'S SIGN: Negative. KIDNEYS: The right kidney measures 10.2 cm in length. No evidence of renal calculi. No evidence of h ydronephrosis. There is a 7.1 x 4.6 x 4.5 cm simple right renal cyst. The left kidney was not visual ized. SPLEEN: Was not visualized on this examination. ASCITES: There is a small amount of perihepatic fluid. IMPRESSION: 1. Suboptimal examination due to overlying bowel and limited patient mobility. The spleen and left k idney cannot be visualized sonographically. 2. Hepatic cyst. Otherwise unremarkable liver. 3. Simple right renal cyst. DATA REPOSITORY:
[2020-06-06] MEDS: Furosemide 20 MG/2 ML VIAL IVP (08:24)
[2020-06-06] MEDS: Heparin 5,000 UNITS/ML VIAL 5000 UNITS SC ×3 (08:25→23:47)
[2020-06-06] MEDS: Aspirin 325 MG TAB PO (08:25)
--- NOTE | 2020-06-06 11:23 | PDOC.EEG_ITS ---
Neurology EEG EEG: [facility] Department of Neurology INPATIENT EEG REPORT Date of Recordin06/06/20 Interpreting Physician: Dr. Claire Mcgee Reason for study: Mr. Del Rio is a 80 year-old man who was admitted after being down x ~48 hours, now with rhabdo, with persistent lethargy. Question of seizures. Current Medications: Current Medications Acetaminophen (Acetaminophen 325 Mg Tab) 650 mg PO Q4H PRN PRN Aspirin (Aspirin 325 Mg Tab) 325 mg PO DAILY [facility] Last Admin: 06/06/20 08:25 Dose: 325 mg Documented by: Diclofenac Sodium (Diclofenac 1% Gel 100 Gm Tube) 100 gm TP QID [facility] Last Admin: 06/06/20 08:30 Dose: Not Given Documented by: Dimethicone/Zinc Oxide (Skip Protect Cream 142 Gm Tube) 0 gm TP PRN PRN Furosemide (Furosemide 20 Mg/2 Ml Vial) 20 mg IVP DAILY [facility] Last Admin: 06/06/20 08:24 Dose: 20 mg Documented by: Heparin Sodium (Porcine) (Heparin 5,000 Units/Ml Vial) 5,000 units SC Q8H [facility] Last Admin: 06/06/20 08:25 Dose: 5,000 units Documented by: Sodium Chloride (Saline 1000ml Bag) 1,000 mls @ 150 mls/hr IV INFUSION [facility] Last Admin: 06/06/20 01:58 Dose: 150 mls/hr Documented by: IV Miscellaneous Supplies (Iv Access) 1 each IV DIRECTED [facility] Lactulose (Lactulose 20 Gm/30 Ml Cup) 20 gm PO BID [facility] Last Admin: 06/06/20 08:30 Dose: Not Given Documented by: Ondansetron HCl (Ondansetron 4 Mg/2 Ml Vial) 4 mg IVP Q4H PRN PRN Polyethylene Glycol (Polyethylene Glycol 3350 17 Gm Packet) 17 gm PO DAILY PRN PRN PRN Reason: Constipation Sodium Chloride (Normal Saline Flush 10 Ml Syr) 0 ml IVP PRN PRN Last Admin: 06/05/20 11:25 Dose: 10 ml Documented by: METHODS: A 21 channel digitized electroencephalogram was performed in the [facility] Med/Surg Floor or ICU. The 10/20 international system of electrode placement was used and bipolar and referential electrode montages were recorded. In addition to EEG the patient was monitored for EKG and lateral/vertical eye movements. Activation procedures of photic stimulation and hyperventilation were performed if applicable. Video was used during activation procedures and during events where applicable. The duration of the recording was 30 minutes. DESCRIPTION OF EEG: The patient was noted to be awake, drowsy, and asleep during the recording. During maximal wakefulness a 9-Hz posterior background rhythm was present which was well-modulated, symmetrical, reactive to eye opening, and of moderate voltage. With eye opening the background activity changed to a low voltage mixture of alpha, beta, and occasional theta range frequencies. Faster frequencies were present in the bilateral anterior head regions. There was a normal anterior-posterior voltage gradient. During drowsiness, there was attenuation of the posterior dominant background rhythm and vertex waves. Stage II sleep was present with symmetrical sleep spindles, K-complexes, and vertex waves. During sleep, the mathematics technician witnessed altered breathing patterns concerning for an underlying sleep apnea. Activating Procedures: Photic stimulation was performed which produced a symmetrical posterior driving response at various flash frequencies. Hyperventilation was not performed. EKG: EKG revealed normal sinus rhythm. INTERPRETATION: This EEG is normal during the awake and sleep states as well as during photic stimulation. Altered breathing patterns were witnessed during sleep. PRIOR EEG: none CLINICAL CORRELATION: No focal regions of cerebral dysfunction or epileptiform activity was present. Epilepsy remains a clinical diagnosis and a normal EEG does not rule out epilepsy. Altered breathing patterns seen during sleep as witnessed by the mathematics technician, concerning for an underlying sleep apnea. Clinical correlation is advised. Claire Mcgee MD
[2020-06-06 12:15] LABS: Bilirubin Negative (Negative); Blood Trace-intact (Negative); Clarity Clear (Clear); Glucose Negative (Negative); Ketones Negative (Negative); Leukocyte Esterase Negative (Negative); Nitrite Negative (Negative); Urobilinogen 0.2 EU/dL (Up TO 0.2)
[2020-06-06 12:26] LABS: Bacteria Few HPF (Negative); C & S Indicated? No; Casts Negative LPF (Negative); Crystals Negative HPF (Negative); Epithelial Cells Negative HPF (Negative); Mucus Negative (Negative)
--- NOTE | 2020-06-06 12:29 | DI.RAD_ITS ---
EXAM: XR PORTABLE CHEST AP CLINICAL HISTORY: FUO TECHNIQUE: 2D digital imaging was performed. COMPARISON: CR XR PORTABLE CHEST AP from 01/10/2019 FINDINGS: MEDIASTINUM: Normal. HEART: Normal. PULMONARY VASCULATURE: Normal. LUNGS: Linear atelectasis is seen in the lung bases. No focal consolidating infiltrates are present. PLEURAL SPACE: No pleural effusion or pneumothorax. BONE:Within normal limits for the patient's age. OTHER FINDINGS:Normal. IMPRESSION: Bilateral basilar atelectasis. DATA REPOSITORY: RADIATION DOSE DELIVERED:
[2020-06-06] MEDS: Gadoterate meglumine 20 ML VIAL 16 ML IVP (13:10)
[2020-06-06] MEDS: Normal Saline Flush 10 ML SYR IVP (13:10)
--- NOTE | 2020-06-06 13:11 | W.NUTRFU ---
Date of service: 06/06/20 Time of Service: 13:11 Nutritional Follow up NOTE: 80 year old male admitted s/p fall with rhabdomyolysis with acute encephalopathy. BMI wnl and stable > 1 year. Following Vegan diet with excellent intake (> 75%). Not at nutritional risk at this time. Will continue to follow. Time Spent in Nutritional Counseling and Treatment: 0
--- NOTE | 2020-06-06 14:57 | PTTR_ITS ---
Date of service: 06/06/20 Time of Service: 14:57 PT Notes Visit Reasons: RHABDOMYOLYSIS Physical Therapy Inpatient Treatment Note Date: 06/06/2020 Precautions: Fall. Standard. Activity as tolerated. Subjective: Patient is somnolent and unable to open both eyes. He however responds to questions appropriately when asked. Objective: General Observation: Supine in bed. IV in the left UE. Left leg and foot swelling. Telemetry monitoring in place. Stratton catheter in place. Mental Status: Alert and oriented as to person and place. Able to respond appropriately to questions however continues to have limited ability to pay attention and focus to tasks. Pain: None reported ROM: Right Upper Extremity: Shoulder Flexion allows up to 140 degrees. Shoulder abduction allows up to 120 degrees. Elbow flexion WFL. Wrist flexion WFL. Functional opening and closing of hand WFL. Left Upper Extremity: Shoulder Flexion allows up to 90 degrees. Shoulder abduction allows up to 80 degrees. Elbow flexion WFL. Wrist flexion WFL. Functional opening and closing of hand WFL. Right Lower Extremity: Hip flexion WFL. Hip abduction WFL. Knee flexion 45 degrees to 90 degrees. Knee extension -45 degrees. Ankle dorsiflexion to neutral only. Ankle plantarflexion WFL. Left Lower Extremity: Hip flexion WFL. Hip abduction WFL. Knee flexion 30 degrees to about 90 degrees. Knee extension -30 degrees. Ankle dorsiflexion to neutral only. Ankle plantarflexion WFL. Strength: Right Upper Extremity: Shoulder flexors 3-5. Shoulder abductors 3-/5. Elbow flexors 3-/5. Elbow extensors 4-/5. Application Integration Architect strong. Left Upper Extremity: Shoulder flexors 3-5. Shoulder abductors 3-/5. Elbow flexors 3-/5. Elbow extensors 4-/5. Application Integration Architect weak but functional Right Lower Extremity: Hip flexors 4-/5. Hip abductors 4-/5. Knee flexors 3-/5. Knee extensors 3-/5. Ankle dorsiflexors 3-/5. Ankle plantarflexors 4-/5. Left Lower Extremity:Hip flexors 4-/5. Hip abductors 4-/5. Knee flexors 3-/5. Knee extensors 3-/5. Ankle dorsiflexors 3-/5. Ankle plantarflexors 4-/5. Bed Mobility/Transfers: Rolling moderate assist Supine to sit moderate assist Sit to supine moderate assist of 2 Sit to stand minimal assist of 2 Stand to sit minimal assist of 2 Bed to chair minimal assist of 2 Chair to bed minimal assist of 2 Gait: Guided patient through short distance ambulation of 8 steps using front wheeled walker with full weight bearing requiring minimal assist of this PT and nurse Summer to transfer from bedside to bedside recliner. Small, festinating gait, excessive right lateral trunk lean, and decreased step height and length. Balance: Static Sitting: Fair Dynamic Sitting: Poor Static Standing: Poor Dynamic Standing: Poor Assessment: Sensorium much improved compared to yesterday. Able to participate in session fully but fatigues easily. Movement slow, not fully coordinated. Right lateral trunk lean observed during transfers and short distance ambulation. Patient will benefit from detention facility placement for continued skilled physical therapy services in order to progress mobility level, strength, and balance in preparation for a safe discharge to home. DISCHARGE RECOMMENDATIONS: Patient will benefit from detention facility placement for continued skilled physical therapy services in order to progress mobility level, strength, and balance in preparation for a safe discharge to home. TREATMENT CODE/TIME: Session 1??14741 x 50 minutes beginning at 14:04 PM. Session 2??[id number] x 14 minutes beginning at 14:57 PM.
--- NOTE | 2020-06-06 15:04 | CMPROGNOTE_ITS ---
- If Service Date Differs Date of service: 06/06/20 Time of Service: 15:04 Care Management Progress Note S/O: Husam was lying in bed when CM met with him. CM reviewed the plan with him, which is for him to go to short term rehab from [facility]. He agreed to a referral being sent to [facility], as he has had a good experience there. CM talked to his daughter, Diana on the phone, who is very concerned about his well being. She reported that he is on the wait list for assisted living at the [facility] in [place], [place], and she has reached out to Janna, admissions at the [facility], who reported that there is a STR bed available. CM called Janna to inquire about bed availability, and emailed the referral to her for review. CM discussed this with Husam, who reported that he would be happy to go to either facility, which ever one has the best program. He stated that he does not know if he can get back to his previous level of functioning, but he is willing to work toward it. CM also spoke to his friend, Preeti, who is taking care of his cat and watching over his cabin while he is in the hospital. Husam will likely remain acute over the weekend, and will transition to short term rehab early next week, when he is medically cleared. CM will contact both facilities on Tuesday to determine his options and create a discharge plan. CM will continue to follow. A: Husam is a 80 year old male admitted to [facility] on 06/04/20 with Rhabdomyolysis. P: Husam will go to short term rehab once he is medically cleared, likely early next week. Referrals were sent to [facility] as well as the [facility]. He will transport via private vehicle vs w/c van when ready. He will follow up with his PCP and discharge plan of care. CM will continue to support Husam and his family with discharge planning considerations.
--- NOTE | 2020-06-06 15:04 | PGE_ITS ---
Date of Service Date of service: 06/06/20 Time of Service: 15:05 Assessment and Plan Assessment and plan (1) CVA (cerebral vascular accident): Status: Chronic Assessment and plan: a few foci of restricted diffusion in L malloy radiata consistent w/ subacute infarct. This happened while on full dose aspirin. Consulting [facility] stroke neuro. Obtain US carotids. Obtain OT and speech recommendations. Echo: LA normal in size. No structural valvular abnormalities. Otherwise, unremarkable. Tele: no evidence of AFib. Await neuro recommendations. No antihypertensives. Neurochecks. cannot give statin due to rhabdomyolysis. Continue full dose asa until further recommendations from neuro available. Consult neuro for Tuesday. Will need SNF. (2) Fever: Status: Acute Assessment and plan: Covid-19 negative. ?aspiration PNA. No leucocytosis/cough, but does report difficulty swallowing. Consult OT. Low threshold to start abx (if fever recurs). Order IS as does have atelectasis. (3) Rhabdomyolysis: Status: Acute Assessment and plan: Presumably from the fall. EEG negative. Continue IVF with lasix prn. Qualifiers: Rhabdomyolysis type: non-traumatic Qualified Code(s): M62.82 - Rhabdomyolysis (4) Elevated troponin: Status: Acute Assessment and plan: Due to rhabdomyolysis. Cardiology does not recommend further ischemic workup. Will monitor on tele due to subacute CVA. (5) Encephalopathy acute: Status: Acute Assessment and plan: In setting of subacute CVA. Will discuss with neuro if this is an expected effect. Certainly, mental status is better today. There is no UTI. EEG negative. Hyperammonemia resolved. Unclear what the etiology of this is - ?dehydration. Await tick studies. (6) Transaminitis: Status: Acute Assessment and plan: Likely in setting of rhabdo. CT w/o liver abnormalities. US liver negative. (7) History of balance disorder: Status: Acute Assessment and plan: PT consult (8) DVT prophylaxis: Status: Acute Assessment and plan: sc heparin (9) Discharge planning issues: Status: Acute Assessment and plan: DNR/DNI Palliative care consult. Will need SNF. Will need a sleep study referral as altered breathing pattern was noted on EEG during sleep. Subjective Subjective Interval history since last seen: Mr Del Rio states he lost strength in his arms and legs. He told nurses that he thought he had a stroke prior to the fall. He denies headache, neck pain, visual changes, numbness, tingling, chest pain, shortness of breath, nausea. He thinks he might be having difficulty swallowing. He had a temperature of 38.0 last night. Per PT, the patient was weaker on the L side and was leaning to the right. Exam Narrative Exam Narrative: General: Elderly male who is much more alert today, but still with flat/detached affect, seated in the chair, slow to respond, but responds appropriately, A&Ox3 Neuro: A&Ox3, Unable to track past midline to the left, otherwice CN intact, LUE 4+/5 strength, RUE 5/5; LLE 4/5; RLE 5/5. Sensory intact. HEENT: dry MM, extraocular movement as above Heart: RRR, no m/r/ g Lungs: CTAB Abdomen: soft, nontender, nondistended Extremities: +1 edema BLE's, slightly worse on the left Objective Last Vital Signs Temp 36.8 C 06/06/20 07:20 Pulse 65 06/06/20 07:20 Resp 19 06/06/20 07:20 BP 122/67 06/06/20 07:20 Pulse Ox 96 06/06/20 07:20 Laboratory Results - last 24 hr 06/06/20 06/06/20 06/06/20 07:04 07:04 07:04 WBC 9.53 RBC 3.10 L Hgb 10.2 L Hct 29.5 L MCV 95.2 H MCH 32.9 MCHC 34.6 RDW 11.9 Plt Count 162 MPV 9.1 APTT 23.7 Sodium Potassium Chloride Carbon Dioxide Anion Gap BUN Creatinine Estimated GFR/1.73 m2 Glucose Calcium Magnesium Ammonia 30 Creatine Kinase Urine Color Urine Clarity Urine pH Ur Specific [place] Urine Protein Urine Ketones Urine Blood Urine Nitrite Urine Bilirubin Urine Urobilinogen Ur Leukocyte Esterase Urine RBC Urine WBC Ur Epithelial Cells Urine Crystals Urine Bacteria Urine Casts Urine Mucus Ur Culture Indicated? Urine Glucose 06/06/20 06/06/20 07:04 11:50 WBC RBC Hgb Hct MCV MCH MCHC RDW Plt Count MPV APTT Sodium 141 Potassium 3.7 Chloride 108 H Carbon Dioxide 25.3 Anion Gap 7.7 BUN 12 D Creatinine 0.5 L Estimated GFR/1.73 m2 >= 60.00 Glucose 106 Calcium 7.8 L Magnesium 1.8 Ammonia Creatine Kinase 3268 H Urine Color Yellow Urine Clarity Clear Urine pH 7.0 Ur Specific [place] 1.020 Urine Protein Negative Urine Ketones Negative Urine Blood Trace-intact H Urine Nitrite Negative Urine Bilirubin Negative Urine Urobilinogen 0.2 Ur Leukocyte Esterase Negative Urine RBC 5-10 H Urine WBC 3-5 Ur Epithelial Cells Negative Urine Crystals Negative Urine Bacteria Few Urine Casts Negative Urine Mucus Negative Ur Culture Indicated? No Urine Glucose Negative Objective Narrative Objective Narrative: MRI brain w/w/o contrast: 1. There are few foci of restricted diffusion in the left malloy radiata consistent with a subacute infarct. 2. No intracranial mass or enhancing lesion. 3. Cerebral atrophy and small vessel ischemic disease. 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 US abdomen; 1. Suboptimal examination due to overlying bowel and limited patient mobility. The spleen and left kidney cannot be visualized sonographically. 2. Hepatic cyst. Otherwise unremarkable liver. 3. Simple right renal cyst. CXR: Bilateral basilar atelectasis.
--- NOTE | 2020-06-06 15:35 | CHAPLAIN ---
I met Husam yesterday. He was eating his lunch, but a bit slumped over, sitting up in bed eating something out of a small dish. He engaged with me but did not seem interested in further conversation with me.
[2020-06-06] MEDS: Diclofenac 1% Gel 100 GM TUBE TP (15:44)
--- NOTE | 2020-06-06 16:14 | DI.VRAD_ITS ---
PROCEDURE INFORMATION: Exam: US Duplex Bilateral Extracranial Arteries Exam date and time: 06/06/2020 3:39 PM Age: 80 years old Clinical indication: Other: Acute CVA TECHNIQUE: Imaging protocol: Real-time Duplex ultrasound scan of the bilateral carotid and vertebral arteries combining mcgraw scale, color Doppler and spectral waveform analysis. Bilateral exam. COMPARISON: CT HEAD CERVICAL SPINE WO 06/04/2020 6:40 PM FINDINGS: Right common carotid artery: Right CCA PSV is 75 cm/s. Right internal carotid artery: PSV at the right bulb is 64 cm/s. Right ICA PSV is 83 cm/s. Right ICA/CCA ratio: The ICA/CCA ratio is 1.1 on the right Right external carotid artery: Right ECA PSV is 78 cm/s. Right vertebral artery: Right vertebral artery PSV is 39 cm/s. Antegrade flow. Left common carotid artery: Left CCA PSV is 84 cm/s. Left internal carotid artery: PSV at the left bulb 72 cm/s. Left ICA PSV is 57 cm/s. Left ICA/CCA ratio: The ICA/CCA ratio is 0.7 on the left. Left external carotid artery: Left ECA PSV is 61 cm/s. Left vertebral artery: Left vertebral artery PSV is 67 cm/s. Antegrade flow. Soft tissues: Mild calcific plaque in the bilateral bulbs, right greater than left. IMPRESSION: 1. Bilateral % ICA stenosis is less than 50%. 2. Mild calcific plaques in the bilateral carotid artery bulbs, right greater than left. REFERENCES: SRU CRITERIA. The degree of internal carotid artery stenosis is based on criteria defined by the Society of Radiologists in Ultrasound (SRU). Normal is no stenosis. Mild is less than 50% stenosis. Moderate is 50-69% stenosis. Severe is greater than 69% stenosis to near occlusion. Near occlusion is a markedly narrowed lumen. Total occlusion is no detectable patent lumen. Dictated and Authenticated by: Kin Hameed MD. Ordering:CRISTOFER Barrett MD
[2020-06-06] MEDS: Cilostazol 100 MG TAB (20:38)
[2020-06-06] MEDS: Melatonin 3 MG TAB 9 MG PO (23:47)
[2020-06-07] VITALS (8 sets, daily range): BP systolic 122–147; BP diastolic 69–84; PULSE 49–81; RESP 17–19; TEMP 36.7–37.4; O2SAT 94–99
[2020-06-07] MEDS: Normal Saline 1,000 ML 150 ML IV (05:14)
[2020-06-07 07:45] LABS: Abs Immature Grans 0.03 10^3/uL (0.0-0.06); Absolute Basophil Count 0.02 10^3/uL (0.0-0.2); Absolute Eosinophil Count 0.06 10^3/uL (0.0-0.7); Absolute Lymphocyte Count 1.72 10^3/uL (1.2-3.4); Absolute Monocyte Count 0.52 10^3/uL (0.1-0.8); Absolute Neutrophil Count 4.71 10^3/uL (1.2-6.7); Basophils % 0.3; Eosinophils % 0.8; HCT 30.3 % (40.0-50.0); HGB 10.2 g/dL (13.5-17.5); Immature Grans % 0.4; Lymphocytes % 24.4; MCH 32.6 pg (27.0-33.0); MCHC 33.7 % (32.0-36.0); MCV 96.8 fL (80-95); MPV 9.7 fL (8.0-11.0); Monocytes % 7.4; Neutrophils % 66.7; Nucleated RBC 0 %; Platelet Count 175 10^3/uL (130-400); RBC 3.13 10^6/uL (4.36-5.78); RDW 11.9 % (11.8-14.1); RDW-SD 42.5 fL; WBC 7.06 10^3/uL (4.4-10.8)
[2020-06-07 08:14] LABS: Anion Gap 8.4 mmol/L (3-11); BUN 11 mg/dL (7-18); CO2 23.6 mmol/L (21.0-32.0); CREATININE 0.4 mg/dL (0.70-1.30); Chloride 108 mmol/L (98-107); Glucose 105 mg/dL (74-106); Magnesium 1.9 mg/dL (1.8-2.4); Potassium 3.6 mmol/L (3.5-5.1); Sodium 140 mmol/L (136-145)
[2020-06-07 08:15] LABS: Creatine Kinase 1795 U/L (39-308)
[2020-06-07] MEDS: Aspirin 325 MG TAB PO (08:18)
[2020-06-07] MEDS: Heparin 5,000 UNITS/ML VIAL 5000 UNITS SC ×2 (08:18→15:59)
[2020-06-07] MEDS: Cilostazol 100 MG TAB PO (08:18)
[2020-06-07 08:28] LABS: Calculated LDL 64 mg/dL (<100); Cholesterol 112 mg/dL (<200); HDL Cholesterol 36 mg/dL (40-60); Triglyceride 60 mg/dL (<150)
[2020-06-07 08:48] LABS: Hemoglobin A1C 5.2 % (<5.7)
--- NOTE | 2020-06-07 09:19 | PDOC.CMPRO ---
- If Service Date Differs Date of service: 06/07/20 Time of Service: 09:19 Care Management Progress Note S/O: Husam was lying in bed asleep when CM came to meet with him this morning, and again, this afternoon. Yesterday CM reviewed the plan with him, which is for him to go to short term rehab from [facility]. He agreed to a referral being sent to [facility], as he has had a good experience there. CM talked to his daughter, Diana on the phone, who is very concerned about his well being. She reported that he is on the wait list for assisted living at the [facility] in [place], [place], and she has reached out to chiquita Saldivar at the [facility], who reported that there is a STR bed available. CM sent a referral there as well. Husam will likely remain acute over the weekend, and will transition to short term rehab early next week, when he is medically cleared. CM will contact both facilities on Tuesday to determine his options and create a discharge plan. CM will continue to follow. A: Husam is a 80 year old male admitted to [facility] on 06/04/20 with Rhabdomyolysis. P: Husam will go to short term rehab once he is medically cleared, likely early next week. Referrals were sent to [facility] as well as the [facility]. He will transport via private vehicle vs w/c van when ready. He will follow up with his PCP and discharge plan of care. CM will continue to support Husam and his family with discharge planning considerations.
--- NOTE | 2020-06-07 11:31 | PT.INTREAT ---
PT Notes Visit Reasons: RHABDOMYOLYSIS Inpatient Physical Therapy Treatment Note [facility] Date: 06/07/20 BED MOBILITY/TRANSFERS Supine-sit: Min assist x 1 Sit-supine: Min assist x1 Sit-stand: CGAx2 Stand-sit: CGAx2 GAIT Assistive Device: FWW Weight bearing: Full Assist:CGA/min assistx2 Distance: Marchig in place focus on posture and mechanics. Also vc's for R sided lean. THEREX: Pt completed UE and LE ther ex as per flow sheet. ASSESSMENT: Pt tolerated today's session well. PLAN: Cont as per PT POC. TREATMENT CODE/TIME: 10:10-10:35 ( 25) PADMAJA TP
--- NOTE | 2020-06-07 11:53 | W.PM.PROGNOT ---
Date of Service Date of service: 06/07/20 Time of Service: 11:53 Assessment and Plan Assessment and plan (1) CVA (cerebral vascular accident): Status: Chronic Assessment and plan: a few foci of restricted diffusion in L malloy radiata consistent w/ subacute infarct. This happened while on full dose aspirin. Dr. Bailey recommends ASA 325 mg daily along w/ Pletal 100 mg daily x 1 wk then reduce his ASA to 81 mg daily and continue Pletal at 100 mg bid. No statin at this time d/t rhabdomyolysis. Patient reports that he previously was on a statin after his prior stroke but was intolerant of this so he stopped the statin, however, he could not tell me the name of the medicine nor the adverse reaction. 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 Patient has been on telemetry since admission w/out signs of afib. Rhythm has been sinus to sinus bradycardia w/ HR as low as mid 40's while asleep. We will continue to monitor on telemetry while here and arrange outpatient 30 day event recorder but his mechanism of CVA appears to be small vessel disease probably hypertension related as these are lacunar strokes. We will have him follow up w/ Dr. Bailey upon discharge. Qualifiers: CVA mechanism: unspecified Qualified Code(s): I63.9 - Cerebral infarction, unspecified (2) Rhabdomyolysis: Status: Acute Assessment and plan: presumable d/t fall and being down for 2 days before being found. renal function remains stable and CK now down to 1800. I have reduced his iv fluids but will continue for another 24 hr. I would like his CK under 1000 before stopping iv fluids. although his feet and lower legs are edematous, he states that they are always that way and that he wears support hose at home. I will order TEDS. repeat CK in the a.m. Qualifiers: Rhabdomyolysis type: non-traumatic Qualified Code(s): M62.82 - Rhabdomyolysis (3) Fever: Status: Resolved Assessment and plan: No further rises in his temperature. This was one time reading of 38 C on 06/05. There has been no fever spikes and his T max over past 24 hrs has been 37.4 C. (4) Elevated troponin: Status: Acute Assessment and plan: Due to rhabdomyolysis. Cardiology does not recommend further ischemic workup. Will monitor on tele due to subacute CVA. (5) Encephalopathy acute: Status: Acute Assessment and plan: resolved. probably related to acute CVA. (6) Transaminitis: Status: Acute Assessment and plan: Likely in setting of rhabdo. CT w/o liver abnormalities. US liver negative. (7) History of balance disorder: Status: Acute Assessment and plan: PT consult (8) DVT prophylaxis: Status: Acute Assessment and plan: sc heparin (9) Discharge planning issues: Status: Acute Assessment and plan: DNR/DNI Palliative care consult. Will need SNF. Will need a sleep study referral as altered breathing pattern was noted on EEG during sleep. Subjective Subjective Interval history since last seen: Patient states he is still weak and complains of a neck ache trouble passing out. I reviewed his CT scan of his C-spine on admission and his C-spine show no fracture or malalignment and no compromise of the cervical spine. CT of his head showed chronic ischemic changes that are progressed since 2012 with a 1 cm lacunar infarct central right rosalba. Subsequent MRI scan demonstrates a new subacute infarct in the left malloy radiata but no intracranial mass or enhancing lesion. He has an old right basal ganglia lacunar infarct. Dr. Ac has spoken with the patient's urologist Dr. Bailey [facility] recommended continued full dose aspirin 325 mg daily along with Pletal 100 mg daily for 1 week then reduce aspirin 81 mg daily increase the Pletal milligrams p.o. twice daily. Patient's rhabdomyolysis continues to improve. CK peaked at 10,600 on admission and is now down to 1800. Renal function remained stable creatinine 0 patient had an elevated troponin level on admission of 4.56 which declined to 3.75 and has not been rechecked since then. The results were discussed with [facility] cardiology who felt that the patient did not sustain a myocardial infarction but had a troponin leak secondary to the severe rhabdomyolysis. Subsequent echocardiogram has demonstrated normal LV and RV function with no wall motion normalities. Patient continues to work with physical therapy and he tolerated upper and lower extremity therapeutic exercises this morning and was able to ambulate with a front wheel walker with CGA/minimal assistance x2. Physical therapy is recommending skilled inpatient rehabilitation facility to improve his gait strength and balance. For his neck discomfort we will try muscle relaxer and Voltaren gel. Exam Narrative Exam Narrative: Elderly male is alert and oriented x3 and asks appropriate questions. He requested results of his carotid study which showed bilateral carotid atherosclerosis but with less than 50% narrowing of his internal carotid arteries. He also requested to look at his MRI scan. HEENT is unremarkable he has no facial asymmetry no dysarthric speech. Normal movement of his tongue and palate. Normal extraocular motion. Speech is clear and coherent. Neck is somewhat tender and range of motion is limited due to voluntary resistance but I was able to get him to flex and extend the neck as well as rotate his neck laterally. Lungs clear to auscultation Heart regular rate and rhythm with a soft systolic murmur over the apex consistent with mitral regurgitation. Neuro exam reveals some subtle weakness in his left hand grasp but fairly good extension flexion of his arms. He has normal hip flexion and extension as well as knee flexion extension normal plantar and dorsiflexion his ankles. Lower extremities reveal 2+ edema is feet and ankles and pretibial surface. Examination of his upper extremity shows no edema he has some muscle wasting about both hands the left worse than the right. Objective Last Vital Signs Temp 37.2 C 06/07/20 11:18 Pulse 74 06/07/20 11:18 Resp 17 06/07/20 11:18 BP 122/72 06/07/20 11:18 Pulse Ox 96 06/07/20 11:18 Laboratory Results - last 24 hr 06/06/20 06/07/20 06/07/20 11:50 07:05 07:05 WBC 7.06 RBC 3.13 L Hgb 10.2 L Hct 30.3 L MCV 96.8 H MCH 32.6 MCHC 33.7 RDW 11.9 Plt Count 175 MPV 9.7 Immature Gran % 0.4 Neutrophils % 66.7 Lymphocytes % 24.4 Monocytes % 7.4 Eosinophils % 0.8 Basophils % 0.3 Nucleated RBC % 0 Absolute Neutrophils 4.71 Absolute Lymphocytes 1.72 Absolute Monocytes 0.52 Absolute Eosinophils 0.06 Absolute Basophils 0.02 Sodium 140 Potassium 3.6 Chloride 108 H Carbon Dioxide 23.6 Anion Gap 8.4 BUN 11 Creatinine 0.4 L Estimated GFR/1.73 m2 >= 60.00 Glucose 105 Hemoglobin A1c Calcium 8.0 L Magnesium 1.9 Creatine Kinase 1795 H Triglycerides 60 Total Cholesterol 112 LDL Cholesterol, Calc 64 HDL Cholesterol 36 L Urine Color Yellow Urine Clarity Clear Urine pH 7.0 Ur Specific [place] 1.020 Urine Protein Negative Urine Ketones Negative Urine Blood Trace-intact H Urine Nitrite Negative Urine Bilirubin Negative Urine Urobilinogen 0.2 Ur Leukocyte Esterase Negative Urine RBC 5-10 H Urine WBC 3-5 Ur Epithelial Cells Negative Urine Crystals Negative Urine Bacteria Few Urine Casts Negative Urine Mucus Negative Ur Culture Indicated? No Urine Glucose Negative 06/07/20 07:05 WBC RBC Hgb Hct MCV MCH MCHC RDW Plt Count MPV Immature Gran % Neutrophils % Lymphocytes % Monocytes % Eosinophils % Basophils % Nucleated RBC % Absolute Neutrophils Absolute Lymphocytes Absolute Monocytes Absolute Eosinophils Absolute Basophils Sodium Potassium Chloride Carbon Dioxide Anion Gap BUN Creatinine Estimated GFR/1.73 m2 Glucose Hemoglobin A1c 5.2 Calcium Magnesium Creatine Kinase Triglycerides Total Cholesterol LDL Cholesterol, Calc HDL Cholesterol Urine Color Urine Clarity Urine pH Ur Specific [place] Urine Protein Urine Ketones Urine Blood Urine Nitrite Urine Bilirubin Urine Urobilinogen Ur Leukocyte Esterase Urine RBC Urine WBC Ur Epithelial Cells Urine Crystals Urine Bacteria Urine Casts Urine Mucus Ur Culture Indicated? Urine Glucose Reviewed Pertinent PMH: Yes
[2020-06-07] MEDS: Normal Saline 1,000 ML 100 ML IV ×2 (11:58→21:09)
[2020-06-07] MEDS: Polyethylene Glycol 3350 17 GM PACKET PO (17:04)
[2020-06-07] MEDS: Acetaminophen 325 MG TAB 650 MG PO (19:57)
[2020-06-07] MEDS: Methocarbamol 750 MG TAB PO (19:58)
[2020-06-07] MEDS: Diclofenac 1% Gel 100 GM TUBE TP (19:58)
[2020-06-07] MEDS: Melatonin 3 MG TAB 9 MG PO (21:06)
[2020-06-08] VITALS (7 sets, daily range): BP systolic 110–132; BP diastolic 63–81; PULSE 62–84; RESP 17–18; TEMP 37–37.5; O2SAT 94–95
[2020-06-08] MEDS: Heparin 5,000 UNITS/ML VIAL 5000 UNITS SC ×3 (01:45→15:55)
[2020-06-08 07:05] LABS: Anion Gap 7.1 mmol/L (3-11); BUN 7 mg/dL (7-18); CO2 24.9 mmol/L (21.0-32.0); CREATININE 0.5 mg/dL (0.70-1.30); Calcium 8.2 mg/dL (8.5-10.1); Chloride 108 mmol/L (98-107); Creatine Kinase 895 U/L (39-308); Glucose 116 mg/dL (74-106); Potassium 3.9 mmol/L (3.5-5.1); Sodium 140 mmol/L (136-145)
[2020-06-08] MEDS: Normal Saline 1,000 ML 100 ML IV (07:17)
[2020-06-08] MEDS: Aspirin 325 MG TAB PO (08:37)
[2020-06-08] MEDS: Cilostazol 100 MG TAB PO (08:37)
[2020-06-08] MEDS: Methocarbamol 750 MG TAB PO (08:37)
[2020-06-08] MEDS: Acetaminophen 325 MG TAB 650 MG PO (08:38)
[2020-06-08] MEDS: Diclofenac 1% Gel 100 GM TUBE TP ×4 (08:44→19:59)
--- NOTE | 2020-06-08 10:03 | PT.INTREAT ---
PT Notes Visit Reasons: RHABDOMYOLYSIS Inpatient Physical Therapy Treatment Note [facility] Date: 06/08/20 OBJECTIVE: Supine-sit: CGA Sit-stand: Min x2 with steady Stand-sit: CGA with steady Bed-Chair: Steady lift GAIT Assistive Device: Steady lift Weight bearing: Full Assist: Steady Distance: Marching in palce focus on posture and standing endurance. Pt was leaning more today so the steady was more appropriate to get to the chair with today. THEREX: Pt completed UE and LE ther ex as per flow sheet. ASSESSMENT: Pt tolerated today's session fairly well. Pt was leaning more to the R as well as forward today. Pt wanted exercises for his head so I discussed with pt chin tucks and shoulder retraction for now. PLAN: Cont as per PT POC. TREATMENT CODE/TIME: 9:30-9:55 (25) PADMAJA FRY
[2020-06-08] MEDS: Psyllium PKT 1 EACH PO ×2 (10:37→16:35)
[2020-06-08] MEDS: Senna TAB 1 TAB PO (10:37)
[2020-06-08] MEDS: Magnesium Citrate 300 ML BTL PO (10:37)
[2020-06-08] MEDS: Bisacodyl 10 MG SUPP PR (10:37)
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
--- NOTE | 2020-06-08 15:09 | PGE_ITS ---
Date of Service Date of service: 06/08/20 Time of Service: 15:09 Assessment and Plan Assessment and plan (1) CVA (cerebral vascular accident): Status: Chronic Assessment and plan: New subacute left CVA involving the left malloy radiata. 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 Patient previously been on aspirin 325 mg daily. He is now on Pletal 100 mg daily in addition to the aspirin. He will continue this for a week and then decrease his aspirin 81 mg daily and Pletal 100 mg twice daily beginning June 13. Because of the recent rhabdomyolysis is not a candidate for statins and he reports he had previous problems taking a statin. Qualifiers: CVA mechanism: unspecified Qualified Code(s): I63.9 - Cerebral infarction, unspecified (2) Rhabdomyolysis: Status: Acute Assessment and plan: Continues to improve. Decrease IV fluid rate and repeat BMP and CK in the morning. Qualifiers: Rhabdomyolysis type: non-traumatic Qualified Code(s): M62.82 - Rhabdomyolysis (3) Elevated troponin: Status: Acute Assessment and plan: Due to rhabdomyolysis. Cardiology does not recommend further ischemic workup. Will monitor on tele due to subacute CVA. (4) Encephalopathy acute: Status: Acute Assessment and plan: resolved. probably related to acute CVA. (5) Transaminitis: Status: Acute Assessment and plan: Likely in setting of rhabdo. CT w/o liver abnormalities. US liver negative. (6) History of balance disorder: Status: Acute Assessment and plan: PT consult (7) DVT prophylaxis: Status: Acute Assessment and plan: sc heparin (8) Discharge planning issues: Status: Acute Assessment and plan: DNR/DNI Palliative care consult. Will need SNF. Will need a sleep study referral as altered breathing pattern was noted on EEG during sleep. Subjective Subjective Interval history since last seen: Patient continues to experience some difficulty swallowing. Nurse gave his pills in applesauce and he did better with that. However for breakfast this morning he was having trouble swallowing his oatmeal. Speech therapy has been consulted to evaluate his dysphagia. Patient is currently on a regular heart healthy diet. I will downgrade the consistency to minced and moistened. As for the stroke he continues to improve with physical therapy. Nurse reported that she and physical therapist got him up out of bed b ut required a steady lift. Patient is interested in going to the [facility] in [facility]. As for his rhabdomyolysis his CK is down to 895. His IV fluids are going at 100 mL an hour. His nurse feels that his p.o. intake is improving. I will decrease his normal saline down to 50 mL/h and if he is taking adequate oral liquids and will discontinue IV fluids altogether. Exam Narrative Exam Narrative: Elderly male is alert and oriented x3 and asks appropriate questions. HEENT is unremarkable he has no facial asymmetry no dysarthric speech. Normal movement of his tongue and palate. Normal extraocular motion. Speech is clear and coherent. Neck is somewhat tender and range of motion is limited due to voluntary resistance but I was able to get him to flex and extend the neck as well as rotate his neck laterally. Lungs clear to auscultation Heart regular rate and rhythm with a soft systolic murmur over the apex consistent with mitral regurgitation. Neuro exam reveals some subtle weakness in his left hand grasp but fairly good extension flexion of his arms. He has normal hip flexion and extension as well as knee flexion extension normal plantar and dorsiflexion his ankles. Lower extremities reveal 2+ edema is feet and ankles and pretibial surface. Examination of his upper extremity shows no edema he has some muscle wasting about both hands the left worse than the right. Objective Last Vital Signs Temp 37.0 C 06/08/20 11:19 Pulse 84 06/08/20 11:19 Resp 18 06/08/20 11:19 BP 110/63 06/08/20 11:19 Pulse Ox 95 06/08/20 11:19 Laboratory Results - last 24 hr 06/08/20 06:33 Sodium 140 Potassium 3.9 Chloride 108 H Carbon Dioxide 24.9 Anion Gap 7.1 BUN 7 Creatinine 0.5 L Estimated GFR/1.73 m2 >= 60.00 Glucose 116 H Calcium 8.2 L Creatine Kinase 895 H
[2020-06-08] MEDS: Normal Saline 1,000 ML 50 ML IV (18:59)
[2020-06-08] MEDS: traZODone 50 MG TAB PO (21:24)
[2020-06-09] VITALS (8 sets, daily range): BP systolic 119–144; BP diastolic 70–81; PULSE 62–74; RESP 16–20; TEMP 36–37.1; O2SAT 94–97
[2020-06-09] MEDS: Heparin 5,000 UNITS/ML VIAL 5000 UNITS SC ×4 (00:58→23:51)
[2020-06-09 06:39] LABS: HCT 28.9 % (40.0-50.0); HGB 9.7 g/dL (13.5-17.5); MCH 32.4 pg (27.0-33.0); MCHC 33.6 % (32.0-36.0); MCV 96.7 fL (80-95); MPV 9.4 fL (8.0-11.0); Platelet Count 184 10^3/uL (130-400); RBC 2.99 10^6/uL (4.36-5.78); RDW 12.1 % (11.8-14.1); RDW-SD 42.4 fL; WBC 5.38 10^3/uL (4.4-10.8)
[2020-06-09 06:58] LABS: ALT 50 U/L (16-63); AST 76 U/L (15-37); Albumin 2.2 g/dL (3.4-5.0); Alkaline Phosphatase 41 U/L (46-116); Anion Gap 6.4 mmol/L (3-11); BUN 7 mg/dL (7-18); Bilirubin, Direct 0.1 mg/dL (0.0-0.2); Bilirubin, Total 0.4 mg/dL (0.2-1.0); CO2 26.6 mmol/L (21.0-32.0); CREATININE 0.5 mg/dL (0.70-1.30); Calcium 8.5 mg/dL (8.5-10.1); Chloride 108 mmol/L (98-107); Creatine Kinase 498 U/L (39-308); Glucose 103 mg/dL (74-106); Potassium 4.1 mmol/L (3.5-5.1); Sodium 141 mmol/L (136-145)
[2020-06-09] MEDS: Cilostazol 100 MG TAB PO (08:42)
[2020-06-09] MEDS: Aspirin 325 MG TAB PO (08:42)
--- NOTE | 2020-06-09 09:39 | OTIE_ITS ---
Occupational Therapy Notes Inpatient Occupational Therapy Evaluation Date: 06/09/20 Referring Doctor: Nena Ac MD OT Orders: Limited ability, non-urgent Precautions: fall,standard, DNR/DNI PATIENT PROFILE/ADMITTING DIAGNOSIS: Pt is a 80 year old male referred for a dx of CVA, encephalopathy, transminitis, rhabdomyolysis, elevated troponin, contusion to (B) elbows, fall, balance disorder, cerebral vascular disease. Past Medical History: Medical History (Updated 06/04/20 @ 21:22 by Bon Peraza MD) Cerebral vascular disease Edema Heart disease Hypertension Maisonneuve fracture of left fibula (01/08/19) Malignant melanoma lower back; in situ Osteoporosis Poor personal hygiene Sensorineural hearing loss of combined sites, bilateral Stroke Surgical History S/P hernia repair Social History/Home Situation: Pt reports that he lives alone and that he is not returning home. He states that he is going to SNF and states that his home set up doesn't make a difference at this time. He reports that he is (I) at his baseline. He has poor hygiene routines and reports that during the summer months he sponge baths as he doesn't have a tub or shower and in the winter months he does not perform any type of hygiene at all. Equipment owned/DME: Pt does not report any DME at todays consult. He would benefit from sock aid, raised toilet seat and OT will continue to assess. SUBJECTIVE: Pt was lying in bed when OT arrived. He was agreeable to OT session and reports that there is no hope for him to return home. OBJECTIVE: General Observation: Pleasant and able to answer questions appropriately. Mental Status: A&Ox3 Pain: c/o pain throughout body ROM: RUE AROM WFL L UE AROM WFL STRENGTH: RUE 4/5 throughout LUE 3+/5 throughout FUNCTIONAL MOBILITY/ADLS: BATHING sitting in bed with max (A) Set up/clean up Bathing UE (I) face and (B) UE and abdomen Bathing LE pt denies DRESSING Pt denies. However pt does have AROM required for UE dressing and requires max (A) for LE dressing at this time. GROOMING (I) with AROM required for oral and hair care. TOILETING NT EATING sitting in bed with max support to trunk (I) with eating routines. Pt does report that he has issues with chewing and swallowing. SPECIAL TESTS: Daily Activity Limitations Standardized Measure [facility] AM -PAC ?6 clicks? Daily Activity Inpatient Short Form: Raw score: 18 Standardized score: 38.66 CMS score: 46.65% INFORMED CONSENT/EDUCATION: Pt instructed in purpose of OT Consult and plan of care. ASSESSMENT: Patient is a 80-year-old male referred to occupational therapy services with diagnosis of CVA, encephalopathy, transminitis, rhabdomyolysis, elevated troponin, contusion to (B) elbows, fall, balance disorder, cerebral vascular disease. Patient presents with clinical signs and symptoms consistent with dx, as demonstrated by the following impairment level findings/ functional limitations: Impairments in ADL/IADL And leisure activities, decreased dressing and bathing routines, decreased LE ADLs, decreased functional activity tolerance for ADLS, decreased functional mobility required for ADLs. AMPAC score 18 Patient is assessed as a Moderate [id number] complexity based on the following: History: see above Examination: see functional limitations as noted above Presentation: evolving Decision Making: AMPAC score 18 GOALS Goals x1 week 1. Transfers min (A) 2. Dressing (I) UE and min (A) LE 3. Bathing (I) in the seated position 4. Toileting on toilet Min (A) 5. Eating (I) PLAN OF CARE/TREATMENT PLAN: 1x/day, 5 days/ week x 1week Initiate Occupational Therapy Services for bathing, dressing, grooming, toileting, eating, transfer training. DISCHARGE RECOMMENDATIONS Based on pts current level of function and impairments, OT recommends that pt go to SNF when medically cleared per MD. TREATMENT TIME/MINUTES/CODES 29499, 10068, 15 minutes (08:05) Denisse De Jesus OTR/[facility]
--- NOTE | 2020-06-09 10:43 | PT.INTREAT ---
Date of service: 06/09/20 Time of Service: 10:32 PT Notes Visit Reasons: RHABDOMYOLYSIS Physical Therapy Inpatient Treatment Note Date: 06/09/2020 Precautions: Fall. Standard. Activity as tolerated. Subjective: Agreeable to this morning session hoping that he can finally walk. Reported nausea and dizziness upon standing up and after ambulation activity. Objective: General Observation: Supine in bed. IV in the left UE. Left leg and foot swelling. Telemetry monitoring in place. Stratton catheter in place. Bilateral TEDS on. Mental Status: Alert and oriented as to person and place. Able to respond appropriately to questions and now demonstrates increasing ability to pay attention and focus to tasks. Pain: None reported Bed Mobility/Transfers: Rolling standby assist Supine to sit standby assist Sit to stand contact-guard assist Stand to sit contact-guard assist Bed to chair contact-guard assist Chair to bed contact-guard assist Gait: Guided patient through short distance ambulation of 20 feet using front wheeled walker with full weight bearing requiring minimal assist and IV pole management of this PT and wheelchair follow of Nurse Montoya for safety. Small, festinating gait, excessive right lateral trunk lean, and decreased step height and length requiring moderate to maximal verbal cueing for improved gait pattern and safety. Reported nausea and dizziness after activity with BP of 125/75 mmHg, 95% oxygen saturation on room air, and 85 bpm. Balance: Static Sitting: Fair Dynamic Sitting: Fair Static Standing: Poor Dynamic Standing: Poor Assessment: Sensorium continuing to improve. Sitting balance and tolerance improving. Activity tolerance increasing. Tolerated short distance ambulation today without much R lateral trunk lean. Able to participate in session fully but continues to fatigue easily. Movement slow, not fully coordinated. Right lateral trunk lean observed only after a short distance ambulation. Patient will benefit from long term facility placement for continued skilled physical therapy services in order to progress mobility level, strength, and balance in preparation for a safe discharge to home. DISCHARGE RECOMMENDATIONS: Patient will benefit from long term facility placement for continued skilled physical therapy services in order to progress mobility level, strength, and balance in preparation for a safe discharge to home. TREATMENT CODE/TIME: Session 1??06363 x 30 minutes, 93118 x 16 minutes beginning at 10:43 AM.
[2020-06-09 11:01] LABS: Lyme Ab w Rflx to Lyme Confirm Negative (Negative)
[2020-06-09] MEDS: Diclofenac 1% Gel 100 GM TUBE TP (15:40)
[2020-06-09] MEDS: Psyllium PKT 1 EACH PO (15:41)
--- NOTE | 2020-06-09 15:58 | PGE_ITS ---
Date of Service Date of service: 06/09/20 Time of Service: 15:58 Assessment and Plan Assessment and plan (1) CVA (cerebral vascular accident): Status: Chronic Assessment and plan: New subacute left CVA involving the left malloy radiata. 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 Patient previously been on aspirin 325 mg daily. He is now on Pletal 100 mg daily in addition to the aspirin. He will continue this for a week and then decrease his aspirin 81 mg daily and Pletal 100 mg twice daily beginning June 13. Because of the recent rhabdomyolysis is not a candidate for statins and he reports he had previous problems taking a statin. Qualifiers: CVA mechanism: unspecified Qualified Code(s): I63.9 - Cerebral infarction, unspecified (2) Dysphagia: Status: Acute Assessment and plan: I suspect oropharyngeal dysphagia secondary to his strokes. Speech therapist is supposed to see him this evening and we may need to get a modified barium swallow to clarify further. Diet is currently moistened minced foods with thin liquids but we may need to thicken his liquids and even go to a pur?ed diet which she is not going to like since he already does not like the minced foods. Qualifiers: Dysphagia type: unspecified Qualified Code(s): R13.10 - Dysphagia, unspecified (3) Rhabdomyolysis: Status: Resolved Assessment and plan: CK is now under 500 and his rhabdomyolysis is resolved. 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 Further cardiac ischemic work-up can be pursued as an outpatient if needed. Echocardiogram demonstrated normal wall motion (5) Encephalopathy acute: Status: Resolved Assessment and plan: resolved. probably related to acute CVA. (6) Transaminitis: Status: Resolved Assessment and plan: Likely in setting of rhabdo. CT w/o liver abnormalities. US liver negative. Transaminases now resolved (7) History of balance disorder: Status: Acute Assessment and plan: PT consult. He continues to improve his balance is fair but his sitting balance and tolerance is improving. His activity tolerance is improving. He tolerates short distance ambulation without much right lateral trunk lean. He ambulates short distances using a front wheel walker with full weightbearing requiring minimal assistance. He still shows small festinating gait. Physical therapy recommends continued therapy through [facility] facility upon discharge. According to physical therapy (8) DVT prophylaxis: Status: Acute Assessment and plan: sc heparin (9) Discharge planning issues: Status: Acute Assessment and plan: DNR/DNI Palliative care consult. Will need SNF. Care management has made referrals and the patient's first choice would be the [place] [facility] Will need a sleep study referral as altered breathing pattern was noted on EEG during sleep. Subjective Subjective Interval history since last seen: Patient is still have a lot of dysphagia. He was seen coughing and choking on his Metamucil. He does not like having minced moistened foods. We are awaiting speech therapy evaluation. I think the patient needs a modified barium swallow for evaluation of his dysphagia. I will modify his diet further once speech therapy is evaluating. Once his dysphagia is adequately evaluated and we settle on the appropriate diet I think he will be medically ready for discharge to a [facility] facility. He continues on aspirin and Pletal for small vessel cerebrovascular disease. He continues to work with physical therapy to improve his gait and strength and balance. Exam Narrative Exam Narrative: Patient seen sitting up in his chair trying to sip his Metamucil through a straw. He was seen to be coughing and choking while. His Metamucil. Advised him to remove the straw and to perform a head turn chin tuck method while swallowing. Lungs with fine bibasilar rales no rhonchi or wheezing Heart regular rate and rhythm Abdomen soft and nontender Extremities with normal range of motion and strength. Objective Last Vital Signs Temp 36.0 C L 06/09/20 07:37 Pulse 62 06/09/20 07:37 Resp 19 06/09/20 07:37 BP 144/77 H 06/09/20 07:37 Pulse Ox 94 06/09/20 07:37 Laboratory Results - last 24 hr 06/06/20 06/09/20 06/09/20 07:04 06:05 06:05 WBC RBC Hgb Hct MCV MCH MCHC RDW Plt Count MPV Sodium 141 Potassium 4.1 Chloride 108 H Carbon Dioxide 26.6 Anion Gap 6.4 BUN 7 Creatinine 0.5 L Estimated GFR/1.73 m2 >= 60.00 Glucose 103 Calcium 8.5 Total Bilirubin 0.4 Conjugated Bilirubin 0.1 AST 76 H ALT 50 Alkaline Phosphatase 41 L Creatine Kinase 498 H Total Protein 5.0 L Albumin 2.2 L Lyme Disease Antibody Negative 06/09/20 06:05 WBC 5.38 RBC 2.99 L Hgb 9.7 L Hct 28.9 L MCV 96.7 H MCH 32.4 MCHC 33.6 RDW 12.1 Plt Count 184 MPV 9.4 Sodium Potassium Chloride Carbon Dioxide Anion Gap BUN Creatinine Estimated GFR/1.73 m2 Glucose Calcium Total Bilirubin Conjugated Bilirubin AST ALT Alkaline Phosphatase Creatine Kinase Total Protein Albumin Lyme Disease Antibody
--- NOTE | 2020-06-09 16:02 | PT.INTREAT ---
Date of service: 06/09/20 Time of Service: 15:00 PT Notes Visit Reasons: RHABDOMYOLYSIS Inpatient Physical Therapy Treatment Note [facility] Date: 06/09/2020 PRECAUTIONS: Fall SUBJECTIVE: Husam is pleasant and agreeable to participating in PT. He inquires about his ride to [facility] tomorrow upon discharge and asks to speak with his continuum of care manager. He reports that he is feeling better than this morning. OBJECTIVE: PAIN: No c/o pain BED MOBILITY/TRANSFERS Supine-sit: S Sit-stand: CGA Stand-sit: CGA GAIT Assistive Device: FWW Weight bearing: Full Assist: CGA Distance: 40' Deviation: Short steps with cueing for increased step length, flexed trunk posture, slow pacing Patient completed squatting exercise x10 with cueing for mechanics. ASSESSMENT: Patient tolerated a progression in gait distance with use of FWW and CGA, although continues to demonstrate short steps and flexed trunk posture. PLAN: Continue with gait training and global strengthening for improved mobility and activity tolerance. TREATMENT CODE/TIME: 25 minutes; 79936 x2 (15:00)
--- NOTE | 2020-06-09 17:18 | NCONE_ITS ---
Date of service: 06/09/20 Time of Service: 17:18 Assessment and Plan Assessment and plan (1) CVA (cerebral vascular accident): Status: Chronic Assessment and plan: Mr. Del Rio is a 80 year-old, right-handed man who was admitted after being found down, complicated by rhabdomyolysis, elevated troponins, and transaminitis. Mr. Del Rio was found to have a new small right parietal infarct. It's not c lear that this has caused him any symptoms nor that it caused his fall. The etiology of his stroke is due to small vessel disease which I favor as being due to being down, dehydrated, and inability to take his medications. He has noted generalized weakness along with worsening of his chronic hypo phonia and dysphagia. This could be due to recent deconditioning or due to exacerbation of his diffuse cerebrovascular disease. Again, unclear if the recent stroke is symptomatic or not. He will continue aspirin 81mg daily along with cilostazol as per [facility] Neurology for stroke prevention. He declines a statin. No further testing needed in regards to his stroke. Consider outpatient sleep study to look for sleep apnea and reduced stroke risk factors if he is so inclined. He is d/c tomorrow to [facility] in [place]. He notes that he is planning to move there permanently given recent circumstances. For that reason he declines neurology follow-up locally. However, he states he does not want to be referred to [facility] either stating that he is tired of seeing medical education manager at this time. I gave him my card and he is welcome to contact me for further questions, follow-up care, and/or referral to other neurology. Qualifiers: CVA mechanism: unspecified Qualified Code(s): I63.9 - Cerebral infarction, unspecified History of Present Illness History of Present Illness Chief Complaint: stroke Narrative: Handedness: right. HPI: Mr. Del Rio is a 80 year-old man with an eccentric personality, heart disease, hypertension, prior strokes, chronic lower extremity edema, and a long history of avoiding/declining medical care and treatments. I previously met Mr. Del Rio in Oct 2019 at which time he was noting difficulty with balance complicated by severe bilateral LE lymphedema. Mr. Del Rio was brought to the [facility] ER on 06/04/20 after being found down outside by a neighbor. He had reportedly been down for ~48hours. The cause of his fall is unclear. Since admission, he has undergone work-up below which was significa nt for a small left parietal infarct. He attributes this as the cause of his fall and why he was unable to get back up citing LEFT hemiparesis. He currently notes generalized weakness. He is hypophonic and dysphagic to both liquids and solids. He notes both of these are old, but perhaps worse since admission. He currently notes neck pain and difficulty holding his head up due to the pain. He was on aspirin 81mg daily for secondary stroke prevention prior to admission. He has repeatedly declined statins in the past. [facility] Stroke Neurologist Dr. Bailey was consulted by hospitalist service over the weekend who recommended the addition of cilostazol 100mg daily x 1 week, then 100mg BID, along with daily 81mg aspirin for stroke prevention. He has been started on this and tolerating it well. Of note, his LE edema is significantly significantly improved since I last saw him - now on furosemide. Work-up: -CTH (06/04/20): no acute findings. Chronic vascular changes. I reviewed these images personally and this is my personal interpretation. -MRI brain (06/05/20): subacute small left parietal ischemic infarct. Chronic severe vascular changes with noted prior infarcts. Moderate cerebral atrophy. I reviewed these images personally and this is my personal interpretation. -CUS (06/06/20): plaques bilaterally. No significant stenosis. -TTE (06/05/20): EF 60%, no wall motion abnormalities. LA normal. -EEG (06/06/20): normal awake, asleep and with PS/HV. Apneic breathing noted by the gi technician. -CK: 47806 on admit to 498 today; Cr stable 0.4-0.5 since admission. Consults Requesting physician: Nena Ac Review of Systems All systems reviewed & are unremarkable except as noted in HPI and below PFSH Medical History Cerebral vascular disease Edema Heart disease Hypertension Maisonneuve fracture of left fibula (01/08/19) Malignant melanoma lower back; in situ Osteoporosis Poor personal hygiene Sensorineural hearing loss of combined sites, bilateral Stroke Surgical History S/P hernia repair Social History Smoking/Tobacco Use Status: Former Tobacco Use Smoking risk assessment performed?: Yes Alcohol Intake: current Alcohol Intake frequency: 3 or more drinks per day Alcohol type: wine and hard liquor Drug use: Never Substance use type: does not use Number of Children: 2 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 Estranged from his children. Moved from [place]. Visit Medication and Allergies Active Medications Generic Name Dose Route Start Last Admin Trade Name Freq PRN Reason Stop Dose Admin Acetaminophen 650 mg 06/04/20 20:15 06/08/20 08:38 Acetaminophen 325 Mg Tab PO 650 mg Q4H PRN PRN Administration Aspirin 325 mg 06/05/20 08:30 06/09/20 08:42 Aspirin 325 Mg Tab PO 325 mg DAILY VERONICA Administration Bisacodyl 10 mg 06/08/20 09:57 Bisacodyl 10 Mg Supp LA DAILY PRN PRN Cilostazol 100 mg 06/07/20 08:30 06/09/20 08:42 Cilostazol 100 Mg Tab PO 100 mg DAILY VERONICA Administration Diclofenac Sodium 100 gm 06/07/20 16:00 06/09/20 15:40 Diclofenac 1% Gel 100 Gm Tube TP 1 applic QID VERONICA Administration Dimethicone/Zinc Oxide 0 gm 06/04/20 20:15 Skip Protect Cream 142 Gm Tube TP PRN PRN Heparin Sodium (Porcine) 5,000 units 06/06/20 08:00 06/09/20 15:40 Heparin 5,000 Units/Ml Vial SC 5,000 units Q8H VERONICA Administration IV Miscellaneous Supplies 1 each 06/04/20 16:30 Iv Access IV DIRECTED VERONICA Melatonin 9 mg 06/06/20 23:25 06/08/20 21:26 Melatonin 3 Mg Tab PO Not Given HS VERONICA Methocarbamol 750 mg 06/07/20 12:59 06/08/20 08:37 Methocarbamol 750 Mg Tab PO 750 mg TID PRN PRN Administration Ondansetron HCl 4 mg 06/04/20 21:28 Ondansetron 4 Mg/2 Ml Vial IVP Q4H PRN PRN Pantoprazole Sodium 40 mg 06/10/20 07:30 Pantoprazole 40 Mg Tabcr PO DAILY@0730 VERONICA Polyethylene Glycol 17 gm 06/04/20 20:15 06/07/20 17:04 Polyethylene Glycol 3350 17 Gm Packet PO 17 gm DAILY PRN PRN Administration Constipation Psyllium Hydrophilic Mucilloid 1 each 06/08/20 17:00 06/09/20 15:41 Psyllium Pkt PO 1 each BID@0830,1600 VERONICA Administration Sennosides 1 tab 06/08/20 09:58 Senna Tab PO BID PRN PRN Sodium Chloride 0 ml 06/04/20 16:29 06/05/20 11:25 Normal Saline Flush 10 Ml Syr IVP 10 ml PRN PRN Administration Trazodone HCl 50 mg 06/08/20 22:00 06/08/20 21:24 Trazodone 50 Mg Tab PO 50 mg HS VERONICA Administration Allergies No Known Allergies Allergy (Verified 06/04/20 20:48) Exam Narrative Exam Narrative: Physical Exam: Gen: Patient of apparent stated age, NAD Head and face: no facial or cranial abnormalities Neck: Supple, no meningismus, no occipital tenderness CV: + S1, S2, RRR, no murmur Resp: CTA B/L Abd: soft, nontender, nondistended Ext: Mild bilateral LE edema - compression stockings in place. No clubbing or cyanosis. No bony deformity. Neuro Exam: Language: fluency, naming, repetition, and comprehension intact; Mental Status: AAOx3, current events intact, fund of knowledge intact; Speech: no dysarthria; mild-moderate hypophonia Cranial nerves: Funduscopy: not performed CN II: visual platt intact CN III, IV, : extraocular movements intact with reduced saccades/tracking, no nystagmus, pupils symmetric and reactive to light CN V: face sensation intact to LT and PP CN VII: no facial asymmetry noted CN VIII: hearing intact bilaterally CN IX, X: palate rises symmetrically CN XI: trapezius/SCM 5/5 bilaterally CN XII: protrudes tongue symmetrically Sensory: intact to LT, PP, and joint position in all extremities; absent vibration throughout the entire LE Motor: bulk and tone intact. Fine motor movements reduced on the right. No pronator drift. Strength 4++/5 throughout. No obvious focal deficits. Reflexes: brisk throughout UE and LE; toes down going bilaterally; Coordination: FTN and HTS intact bilaterally Gait: not tested Results Last Vital Signs Temp 36.7 C 06/09/20 16:08 Pulse 74 06/09/20 16:08 Resp 20 06/09/20 16:08 BP 132/73 06/09/20 16:08 Pulse Ox 97 06/09/20 16:08 Labs Result diagrams: 06/09/20 06:05 06/09/20 06:05 Labs: Laboratory Results - last 24 hr 06/06/20 06/09/20 06/09/20 07:04 06:05 06:05 WBC RBC Hgb Hct MCV MCH MCHC RDW Plt Count MPV Sodium 141 Potassium 4.1 Chloride 108 H Carbon Dioxide 26.6 Anion Gap 6.4 BUN 7 Creatinine 0.5 L Estimated GFR/1.73 m2 >= 60.00 Glucose 103 Calcium 8.5 Total Bilirubin 0.4 Conjugated Bilirubin 0.1 AST 76 H ALT 50 Alkaline Phosphatase 41 L Creatine Kinase 498 H Total Protein 5.0 L Albumin 2.2 L Lyme Disease Antibody Negative 06/09/20 06:05 WBC 5.38 RBC 2.99 L Hgb 9.7 L Hct 28.9 L MCV 96.7 H MCH 32.4 MCHC 33.6 RDW 12.1 Plt Count 184 MPV 9.4 Sodium Potassium Chloride Carbon Dioxide Anion Gap BUN Creatinine Estimated GFR/1.73 m2 Glucose Calcium Total Bilirubin Conjugated Bilirubin AST ALT Alkaline Phosphatase Creatine Kinase Total Protein Albumin Lyme Disease Antibody
--- NOTE | 2020-06-09 19:15 | CMPROGNOTE_ITS ---
- If Service Date Differs Date of service: 06/09/20 Time of Service: 19:15 Care Management Progress Note S/O: Husam was sitting up in his chair when CM met with him today. He reported that he is feeling better than when he arrived. CM discussed his bed offers for short term rehab- he was accepted at [facility] as well as [facility]. He prefers [facility], as he is on their wait list for assisted living. CM spoke to Janna, admissions at [facility], who reported that they have a bed offer for tomorrow morning. CM asked for a repeat Covid test for today or early tomorrow morning. CM called Diana, Husam's daughter, and updated her on the plan. CM will coordinate RCT w/c van transportation tomorrow. CM will continue to follow. A: Husam is a 80 year old male admitted to [facility] on 06/04/20 with Rhabdomyolysis. P: Husam will go to short term rehab once he is medically cleared. Referrals were sent to [facility] as well as [facility]. He was accepted at both and has chosen [facility]. [facility] has a bed tomorrow morning, which is when he will transition. He will transport via [facility] w/c van when ready, which CM will coordinate. He will follow up with his PCP and discharge plan of care. CM will continue to support Husam and his family with discharge planning considerations.
[2020-06-09 21:02] LABS: Anaplasma phagocytophilum Negative (Negative); B. miyamotoi PCR Negative (Negative); Babesia divergens/MO-1 Negative (Negative); Babesia duncani Negative (Negative); Babesia microti Negative (Negative); Ehrlichia chaffeensis Negative (Negative); Ehrlichia ewingii/canis Negative (Negative); Ehrlichia muris eauclairensis Negative (Negative)
[2020-06-09 22:35] LABS: Source Nasal/Nares
[2020-06-09] MEDS: traZODone 100 MG TAB PO (23:48)
[2020-06-10 00:14] LABS: COVID-19 PCR Negative (Negative)
[2020-06-10 03:35] VITALS: BP 138/77; PULSE 60; RESP 17; TEMP 36.6; O2SAT 96
[2020-06-10 07:36] VITALS: BP 145/81; PULSE 66; RESP 18; TEMP 36.7; O2SAT 95
[2020-06-10 08:02] VITALS: PULSE 60
--- NOTE | 2020-06-10 08:17 | OTTR_ITS ---
Date of service: 06/10/20 Time of Service: 07:40 Occupational Therapy Notes Occupational Therapy Inpatient Treatment Note Date: 06/10/20 PRECAUTIONS: Fall, standard, DNR/DNI SUBJECTIVE: Pt was lying in bed when OT arrived, he was agreeable to OT session and notes that he is not sure how well he slept last night because he is tired. OBJECTIVE: PAIN:no c/o pain BATHING: sitting in bed with max (A) Set up/clean up and mod vc throughout Upper Body: (I) Lower Body: Max (A) DRESSING: sitting in bed with min vc Upper Extremity: Mod (A) [facility] gown GROOMING: Min (A) brushing hair TOILETING: Device: Urinal Assist: (I) ASSESSMENT/PLAN: Pt is tolerating OT services well, he is not receptive to standing ADLs or sitting on side of his bed, however he is receptive if he can sit in his bed with support to his back. He requires vc throughout and for performance as he doesn't have a set ADL routine at baseline. TREATMENT CODES/TIME: 10950, 10 minutes (07:40) Denisse De Jesus, OTR/L [facility]
[2020-06-10] MEDS: Psyllium PKT 1 EACH PO (09:05)
[2020-06-10] MEDS: Aspirin 325 MG TAB PO (09:05)
[2020-06-10] MEDS: Cilostazol 100 MG TAB PO (09:05)
[2020-06-10] MEDS: Heparin 5,000 UNITS/ML VIAL 5000 UNITS SC (09:05)
[2020-06-10 11:17] VITALS: PULSE 69
--- NOTE | 2020-06-10 11:30 | DSE_ITS ---
Date of service: 06/10/20 Time of Service: 11:31 DS: Diagnosis Discharge Diagnosis (1) CVA (cerebral vascular accident): Status: Chronic Asessment and Plan: Continue aspirin 81 mg daily along with increased dose of Pletal to 100 mg twice a day. Patient is not a candidate for statin due to his recent rhabdomyolysis. Historically he has had problems with statins with muscle pains. Patient needs continued inpatient rehabilitation to improve his gait and strength. Patient also needs a follow-up with speech therapy to evaluate his dysphagia. (2) Dysphagia: Status: Acute Asessment and Plan: Diet has been modified to minced and moistened meats with thin liquids. Swallowing precautions should be taken including keeping him upright for 30 minutes after meals and instructed the patient on chin tuck and head turning during swallowing and taking double swallows and alternating solids and liquids. Patient should remain upright for 15 minutes after medications. Patient should not eat his meals in bed but should be upright in a chair. Please have speech therapy follow-up with him he may need a modified barium swallow if there is a questionable oropharyngeal swallowing problem. (3) Contusion of elbow, left: Status: Acute Asessment and Plan: X-rays taken of his left and right elbow on admission was read as possible subtle radial head fractures. Patient seemed to have no pain with flexion extension elbow nor did he have pain with pronation or supination of the forearm. He was tolerating weightbearing with the use of a front wheel walker. Although the radiologist did not change his impression of his reading and informal consultation was obtained by the emergency department with Dr. Verdugo, orthopedic surgeon who reviewed the films and reported to the ER physician that he saw no evidence of acute fracture. If the patient has any symptoms of elbow pain or limitation in the use of his forearm please obtain formal orthopedic consultation and consider CT scan of the affected elbow joints. (4) Contusion of elbow, right: Status: Acute Asessment and Plan: As above (5) NSTEMI (non-ST elevated myocardial infarction): Status: Acute Asessment and Plan: Patient had a troponin anemia secondary to his rhabdomyolysis. He had no symptoms of chest pain or chest pressure or dyspnea. Formal echocardiogram was obtained and showed no systolic dysfunction of his LV or RV. 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 Patient will be maintained on antiplatelet therapy as prescribed for his stroke including aspirin 81 mg daily and Pletal 100 mg twice a day. (6) Rhabdomyolysis: Status: Resolved Asessment and Plan: Rhabdomyolysis has resolved. Patient did not suffer any acute kidney injury. (7) Transaminitis: Status: Resolved Asessment and Plan: Transaminitis was related to the rhabdomyolysis and resolved with IV hydration. (8) Anemia: Status: Chronic Asessment and Plan: Patient has a chronic anemia and presented with a hemoglobin of 12.3 g which diluted down to 9.7 g with aggressive IV fluid hydration. He had no evidence of acute GI bleeding.. Historically his hemoglobin has varied between 9 and 12 g over the last couple years. Further outpatient work-up is recommended including checking iron studies and repeating stool for occult blood. Patient has been prophylactically put on Pepcid to prevent any GI bleeding caused by his antiplatelet therapy. (9) Discharge planning issues: Status: Acute Asessment and Plan: Patient is being discharged to [facility] for continued inpatient rehabilitation. Discharge Plan Disposition Patient Disposition: SKILLED NSG. FAC.(LEVEL 1) Condition: Improving Discharge Details Reason For Visit: RHABDOMYOLYSIS Admit Date/Time: 06/04/20 20:15 Admit Provider: Bon Peraza Attending Provider: Bon Peraza Primary Care Provider: Kp Tate Hospital Course Hospital Course: 80-year-old male with a past medical history of CVA, HTN, NSTEMI, malignant melanoma who presented to the emergency department at [facility] after having been found by his neighbor outside his home. Patient reportedly had been down for 2 days. He attempted to crawl into his home but was too weak. Patient denies loss of consciousness however history is unreliable. Upon evaluation emergency department he was found to be in rhabdomyolysis with a CK of 10,000 but normal renal function with a BUN of 17 creatinine 0.5. He had elevated transaminases with an AST of 304, ALT 75, normal bilirubin 0.8. He had a mildly elevated white count of 11,000. Covid screening was negative. EKG showed normal sinus rhythm rate of [address] elevation in anterior leads but no ST depression. Troponin was elevated 4.56 with a repeat level of 5.44. EKGs and lab tests were referred to cardiology at [facility] by the ER attending at [facility]. They felt that the patient had demand ischemia and not a STEMI. CT of the head and cervical spine without contrast was performed upon admission to the ER. C-spine showed no significant osseous lesions and no significant facet joint malalignment. CT of the head showed no acute intracranial findings however there are ischemic changes that had progressed since prior exam from 2012 with most obvious being a 1 cm lacunar infarct in the right central rosalba. Patient underwent subsequent MRI of the brain couple days later on June 06, 2020 which demonstrated few foci of restricted diffusion defect in the left malloy radiata consistent with a subacute infarct. No intracranial mass or enhancing lesions. He has an old right basal ganglier lacunar infarct and cerebral atrophy and small vessel ischemic disease. Carotid ultrasound showed no evidence of hemodynamically significant carotid stenosis. Echocardiogram was performed showed normal left ventricular size and function with an ejection fraction of 60%. No segmental wall motion abnormalities. RV size and function was normal. He had no significant valvular abnormalities. Other radiologic studies include a CT scan of the thoracic and lumbar spine as well as x-rays of his elbows and arms. Thoracic and lumbar CT showed no acute fractures in the thoracic lumbar spinal columns. However there is slight loss of height of T6 superior endplate which did not appear to be acute. He has disc disease and spinal canal stenosis of the lower lumbar spine at L4 and L3-L4. X- ray of the right elbow suggested a subtle nondisplaced fracture of the radial head x-ray of the left humerus showed no fracture. X-ray of the left elbow showed minimally displaced fracture of the left radial head. Dr. Bahena, ER attending went over the xrays of his elbows w/ Dr. Verdugo, orthopedics who felt that there was no clear fracture. CT of the chest and abdomen pelvis showed no pulmonary emboli or pulmonary infarct. No aortic trauma. No evidence of trauma in the abdomen or pelvis and no fractures seen. Prostate gland was noted to be enlarged with multiple enhancing nodules for which a prostate malignancy could not be excluded. Patient was admitted to the hospital placed on IV fluids to treat his rhabdomyolysis, CK level was 10,614 at its peak on admission at the time of discharge his CK level had gone down to 498. Patient was found to have a troponin leak with a troponin I level 4.56 on admission and over the next 24 hours it declined down to 3.75 at which point no further levels were checked. As noted above echocardiogram showed no wall motion abnormality showed normal left ventricular systolic function and normal right ventricular systolic function. His transaminitis with an AST of 304 and ALT is 75 decline to an AST of 76 and ALT of 50 and alkaline phosphatase of 41 at the time of discharge. Patient never did sustain an acute kidney injury in spite of his high CK levels. His admission BUN and creatinine were 17 and 0.5 and at discharge the BM was down to 7 and creatinine was 0.5. On admission his hemoglobin was 12.3 g hematocrit 35%. With hydration he diluted down to a hemoglobin 9.7 hematocrit 28.9. He had no evidence of acute GI bleeding. Stool for occult blood was ordered but not tested. Patient is having bowel movements of soft formed brown stools. It is recommended that a follow-up CBC be done within a week now that he is off IV fluids. Blood cultures were done on admission and came back no growth. Patient's treatment consisted of aggressive IV fluids of normal saline 150 mL/h which was continued from admission on June 04, 2020 through June 07, 2020 at which point saline was decreased down to 100 mL/h for another 24 hours and then decrease to 50 mL/h before being stopped on June 09, 2020. Patient had physical therapy and at discharge he was progressin in gait distance to 40 ft w/ use of FWW and CGA. He was tolerating weight bearing w/ use of FWW and did not complain of any elbow or arm pain. Because the radiologist was calling the xrays of the elbows as being suspicious for subtle radial head fracture, and our orthopedic surgeon was asked for curbside consult by the ER and he did not see any definite fracture, it is recommended that the patient have a follow up exam by orthopedics and if any complains of pain or decr. ROM of his elbows, a formal CT scan would be advised. While the patient was being agressive hydrated, he required placement of catheter by urologist, Dr. Arvizu. His álvarez catheter was removed on 06/09 and patient has been voiding fine. The patient's own neurologist from [facility], Dr. Bailey, was consulted on the patient's stroke and he recommended continuation of the patient's aspirin at 325 mg daily and adding Pletal 100 mg daily for one week then decreasing his dose to aspirin 81 mg daily and increasing the Pletal to 100 mg bid. Because of his rhabdomyolysis, the patient was not considered a candidate for a statin and in fact had problems in past w/ statins. Our neurologist, Dr. Mcgee saw the patient on Tuesday, May; see her recommendations in her report. In summary, she agreed that he has evidence of lacunar (small vessel disease) and did not recommend any changes in Dr. Bailey' recommendations regarding his antiplatelet regimen. She did not feel that his gait imbalance nor his syncope/fall were related to his strokes. Throughout the patient's stay his rhythm was monitored and he was found to have sinus to sinus bradycardia but no evidence of high grade blocks nor PAF. Patient is advised to either follow up w/ Dr. Bailey or Dr. Mcgee upon discharge from [facility]. The patient initially was on a regular diet but showed signs of dysphagia, a speech therapy consult was orderd but the speech therapist never completed the consult. His diet was down graded to minced and moistened meats w/ thin liquids. A follow up speech therapy consult is recommended. Home Meds and New Rx's Prescriptions: New cilostazol 100 mg Tablet 100 mg PO BID Qty: 60 RF: 0 diclofenac sodium 1 % Gel 100 g topical QID PRNQty: 150 RF: 0 methocarbamol 750 mg Tablet 750 mg PO TID PRN PRNQty: 30 RF: 0 melatonin 3 mg Tablet Extended Release 9 mg PO HS PRN (Reason: sleep) Qty: 30 RF: 0 polyethylene glycol 3350 17 gram Powder In Packet 17 g PO DAILY PRN PRN (Reason: Constipation) Qty: 30 RF: 0 Metamucil Sugar-Free (aspart) 3.4 gram/5.8 gram Powder 1 ea PO BID@0830,1600 Qty: 368 RF: 0 sennosides [Senokot] 8.6 mg Tablet 1 tab PO BID PRN PRNQty: 60 RF: 0 bisacodyl 10 mg Suppository 10 mg IA DAILY PRN PRNQty: 30 RF: 0 aspirin 81 mg tablet,delayed release (DR/EC) 81 mg PO DAILY Qty: 30 RF: 0 acetaminophen [Tylenol] 325 mg Tablet 650 mg PO Q4H PRN PRNQty: 120 RF: 0 famotidine [Pepcid AC] 20 mg tablet 20 mg PO QHS Qty: 30 RF: 0 Continued clobetasol 0.05 % Cream 1 applic TOPICAL BID PRNRF: 0 Discontinued furosemide 20 mg tablet 40 mg PO DAILY RF: 0 aspirin 325 MG tablet 325 mg PO DAILY RF: 0 lisinopril 5 MG tablet 5 mg PO HS RF: 0 No Action trazodone 100 mg tablet 50 - 100 mg PO HS RF: 0 Discharge Instructions Instructions: Ischemic Stroke (DC), Aspiration Precautions (DC) Additional Instructions: Follow-up referral for polysomnogram is recommended to evaluate for possible sleep apnea. Follow-up with speech therapy is recommended to evaluate and treat his dysphagia. Recommended diet is minced moist and meats with thin liquids. Avoid use of straws. Patient is to remain upright for 30 minutes after all meals and snacks and upright for 15 minutes after medications. Instruct patient in aspiration prevention during swallowing including chin tuck and head turning during swallowing with double swallows after each bite or sip of liquids. Stand Alone Forms: Nursing Discharge Form Activity:: Activity as Tolerated Equipment/Supplies:: No Equipment Needed Diet:: minced moist w/ thin liquids Discharge Orders Discharge Orders: Discharge Order (Routine); Ordered 06/10/20 Ordered By: Armin Montelongo DS: Summary Time Spent with Patient providing and/or coordinating discharge services: Greater than 30 minutes Specific discharge activities: Review of all studies reconciliation of his discharge medications consultation with case management Status at Discharge Functional status at discharge: uses cane/walker Overall status at discharge: patient is progressing back to baseline Mental Status: mental status grossly normal Speech and Movement: speech and movement normal Mood: congruent mood Affect: normal affect Exam Narrative Exam Narrative: Patient seen sitting up in his chair trying to sip his Metamucil through a straw. He was seen to be coughing and choking while. His Metamucil. Advised him to remove the straw and to perform a head turn chin tuck method while swallowing. Lungs with fine bibasilar rales no rhonchi or wheezing Heart regular rate and rhythm Abdomen soft and nontender Extremities with normal range of motion and strength. Explicitly he had normal extension and flexion of his forearms at the elbow joint. There was no pain or limitation range of motion with pronation and supination. Psych Mental Status: mental status grossly normal Speech and Movement: speech and movement normal Mood: congruent mood Affect: normal affect DS: Data Vitals/I&O Vitals and I&O: Vital Signs Temperature 36.7 C 06/10/20 07:36 Temperature Source Tympanic 06/10/20 07:36 Pulse 60 06/10/20 08:02 Pulse Rhythm Regular 06/10/20 09:05 Pulse 58 L 06/04/20 21:16 Respiratory Rate 18 06/10/20 07:36 Respiratory Effort Non-Labored 06/10/20 09:05 Respiratory Depth Normal 06/10/20 09:05 Respiratory Pattern Normal 06/10/20 09:05 Blood Pressure 145/81 H 06/10/20 07:36 Blood Pressure Mean 71 06/04/20 21:15 Blood Pressure Position Sitting 06/04/20 16:28 Pulse Oximetry 95 06/10/20 07:36 Oxygen Delivery Method Room Air 06/10/20 07:36 Oxygen Flow Rate 0 06/10/20 07:36 Pain Level 0 06/10/20 07:36 Comment 06/08/20 16:05 Intake & Output 06/09/20 06/09/20 06/10/20 11:59 23:59 11:59 Intake Total 240 / 1480 1240 / 1480 120 / 120 Output Total 1875 / 3851 1976 / 3851 1475 / 1475 Balance -1635 / -2371 -736 / -2371 -1355 / -1355 Intake: IV 1000 / 1000 Oral 240 / 480 240 / 480 120 / 120 Output: Urine 1874 / 3851 19751 1475 / 1475 Other: Urine Color Yellow Straw Yellow Urine Appearance Clear Clear Clear Urine Odor Normal Normal Comment pT has not voided yet after álvarez taking out. Voiding Methods Urinal Urinal Data Completed and Pending Labs on day of discharge: Labs from last 24 hours 06/09/20 06/06/20 23:05 07:04 A.phagocytophil DNA PCR Negative B. divergens/MO-1 PCR Negative Babesia duncani (PCR) Negative Babesia microti DNA PCR Negative Borrelia (PCR) Negative COVID-19 Source Nasal/nares SARS-CoV-2 (PCR) Negative E.chaffeensis DNA (PCR) Negative E.ewingii/canis DNA PCR Negative E. muris-like DNA (PCR) Negative Preliminary micro results at discharge 06/06/20 11:50 Blood Culture - Preliminary Blood NO GROWTH 72 HOURS 06/06/20 11:45 Blood Culture - Preliminary Blood NO GROWTH 72 HOURS [facility] Medical History (Updated 06/10/20 @ 11:38 by Armin Montelongo) Cerebral vascular disease Edema Heart disease Hypertension Maisonneuve fracture of left fibula (01/08/19) Malignant melanoma lower back; in situ Osteoporosis Poor personal hygiene Sensorineural hearing loss of combined sites, bilateral Stroke Surgical History S/P hernia repair Social History Smoking/Tobacco Use Status: Former Tobacco Use Smoking risk assessment performed?: Yes Alcohol Intake: current Alcohol Intake frequency: 3 or more drinks per day Alcohol type: wine and hard liquor Drug use: Never Substance use type: does not use Number of Children: 2 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 Estranged from his children. Moved from [place].
--- NOTE | 2020-06-10 15:32 | PT.INTREAT ---
Date of service: 06/10/20 Time of Service: 09:20 PT Notes Visit Reasons: RHABDOMYOLYSIS Inpatient Physical Therapy Treatment Note [facility] Date: 06/10/2020 PRECAUTIONS: Fall SUBJECTIVE: Husam is pleasant and agreeable to participating in PT. He reports that he is feeling well this morning. He would like to know what time his is being discharged and transferred to [facility] today. OBJECTIVE: PAIN: No c/o pain BED MOBILITY/TRANSFERS Sit-stand: SBA Stand-sit: SBA GAIT Assistive Device: FWW Weight bearing: Full Assist: SBA Distance: 60' Deviation: Cueing for increased step height and length for improved safety THEREX: Patient was instructed in an UE strengthening program, completed while seated at EOB, as per flow sheet. He was also instructed in functional [id number] exercise. Patient requires verbal and visual cueing for proper exercise performance. ASSESSMENT: Patient tolerated session with c/o nausea following ther ex completion. He was able to tolerate a progression in gait distance with use of FWW and SBA. PLAN: Continue with gait and transfer training as well as global strengthening for improved mobility and activity tolerance at SNF level rehab. TREATMENT CODE/TIME: 25 minutes; 04532, 08243 (09:20)
--- NOTE | 2020-06-10 17:31 | CMDISCH_ITS ---
- If Service Date Differs Date of service: 06/10/20 Time of Service: 17:31 LACE Index Scoring Tool - Questions: Length of Stay (in days): 4 - 6 Acuity (Admit via E.D.?): Yes Comorbidities: Previous M.I., Cerebrovascular Disease E.D. Visits: 1 - Answers: Total Score: 10 Risk of Readmission: High Risk Care Management Discharge Reason for Hospitalization: Rhabdomyolysis. Discharge Plan: Husam transitioned to [facility] in [place] today for short term rehab prior to assisted living. He was transported via [facility] w/c [facility], coordinated by [facility]. CM discussed this plan with his daughter, who is happy that he was accepted for rehab at [facility]. Husam is happy also, that he is able to make a smooth transition. He will follow up with his PCP and discharge plan of care. Patient/Family Education Needs: Review discharge instructions regarding activity levels and medications, discussion of self care needs and goals of care. Services Needed at Discharge: Fdc Facility ([facility]), Transportation ([facility] w/c [facility])
--- NOTE | 2020-06-11 07:19 | OT.INDS ---
Date of service: 06/11/20 Time of Service: 07:19 Occupational Therapy Notes Occupational Therapy Inpatient Discharge Summary Date: 06/11/20 Dates of Service: 06/09/20-06/10/20 Referring Doctor: Nena Ac MD OT Orders: Limited ability, non-urgent Precautions: fall,standard, DNR/DNI *This document serves as a summary of care, no skilled OT services were provided for this documentation* PATIENT PROFILE/ADMITTING DIAGNOSIS: Pt is a 80 year old male referred for a dx of CVA, encephalopathy, transminitis, rhabdomyolysis, elevated troponin, contusion to (B) elbows, fall, balance disorder, cerebral vascular disease. Past Medical History: Medical History (Updated 06/04/20 @ 21:22 by Bon Peraza MD) Cerebral vascular disease Edema Heart disease Hypertension Maisonneuve fracture of left fibula (01/08/19) Malignant melanoma lower back; in situ Osteoporosis Poor personal hygiene Sensorineural hearing loss of combined sites, bilateral Stroke Surgical History S/P hernia repair Social History/Home Situation: Pt reports that he lives alone and that he is not returning home. He states that he is going to SNF and states that his home set up doesn't make a difference at this time. He reports that he is (I) at his baseline. He has poor hygiene routines and reports that during the summer months he sponge baths as he doesn't have a tub or shower and in the winter months he does not perform any type of hygiene at all. Equipment owned/DME: Pt does not report any DME at todays consult. He would benefit from sock aid, raised toilet seat and OT will continue to assess. SUBJECTIVE: NT OBJECTIVE: ROM: RUE AROM WFL L UE AROM WFL STRENGTH: RUE 4/5 throughout LUE 3+/5 throughout FUNCTIONAL MOBILITY/ADLS: BATHING: sitting in bed with max (A) Set up/clean up and mod vc throughout Upper Body: (I) Lower Body: Max (A) DRESSING: sitting in bed with min vc Upper Extremity: Mod (A) don and doffing hospital gown GROOMING: Min (A) brushing hair TOILETING: Device: Urinal Assist: (I) ASSESSMENT: Patient is a 80-year-old male referred to occupational therapy services with diagnosis of CVA, encephalopathy, transminitis, rhabdomyolysis, elevated troponin, contusion to (B) elbows, fall, balance disorder, cerebral vascular disease.Pt was seen for 2 skilled OT sessions, he only performed his ADLs in the bed at this time due to fatigue and weakness. He transitioned to SNF for further care on 06/10/20. GOALS- Not met unless specified 1. Transfers min (A) 2. Dressing (I) UE and min (A) LE 3. Bathing (I) in the seated position 4. Toileting on toilet Min (A) 5. Eating (I)- met PLAN OF CARE/TREATMENT PLAN: Pt was discharged to SNF, discharge from skilled OT services at this time. DISCHARGE RECOMMENDATIONS Based on pts current level of function and impairments, OT recommends that pt go to SNF when medically cleared per MD. TREATMENT TIME/MINUTES/CODES N/A Denisse De Jesus OTR/L [facility]
--- NOTE | 2020-06-11 15:08 | INDS_ITS ---
Date of service: 06/11/20 Time of Service: 15:08 PT Notes Visit Reasons: RHABDOMYOLYSIS Physical Therapy Inpatient Discharge Summary Date: 06/11/2020 Dates of service: 06/05/2020 through 06/10/2020 This is a clinical summary of care provided on the duration of dates listed above. No charge was made in the completion of this documentation. Referring Doctor: Bon Back MD PT Orders: PT CONSULT: Eval/treat. Precautions: Fall. Standard. Activity as tolerated. Patient Profile/Admitting Diagnosis: Husam is a 80-year-old male with past medical history significant for cerebrovascular disease and frequent falls who presented to the ED on 06/04/2020 due to a fall while walking outside with his walker. Patient reportedly down on the ground for 2 days before he was found. Patient is diagnosed with rhabdomyolysis, elevated troponin, encephalopathy, contusion of left elbow, fall, and transaminitis. PMHX: Medical History (Updated 06/04/20 @ 21:22 by Bon Peraza MD) Cerebral vascular disease Edema Heart disease Hypertension [place]uve fracture of left fibula (01/08/19) Malignant melanoma lower back; in situ Osteoporosis Poor personal hygiene Sensorineural hearing loss of combined sites, bilateral Stroke Surgical History S/P hernia repair Social History/Home Situation: Patient lives alone in a one-level home with 5 steps to enter and a rail on the left going up. He is independent with all aspects of ADLs and has managed to do them without any need for an adaptive equipment nor assistive ambulatory devices. Equipment Owned/DME: Front wheel walker, single-point cane Subjective: NT. See most recent [employer] notes. Objective: General Observation: NT. See most recent [employer] notes. Mental Status: NT. See most recent [employer] notes. Pain: NT. See most recent [employer] notes. ROM: Right Upper Extremity: Shoulder Flexion allows up to 140 degrees. Shoulder abduction allows up to 120 degrees. Elbow flexion WFL. Wrist flexion WFL. Functional opening and closing of hand WFL. Left Upper Extremity: Shoulder Flexion allows up to 90 degrees. Shoulder abduction allows up to 80 degrees. Elbow flexion WFL. Wrist flexion WFL. Functional opening and closing of hand WFL. Right Lower Extremity: Hip flexion WFL. Hip abduction WFL. Knee flexion 45 degrees to 90 degrees. Knee extension -45 degrees. Ankle dorsiflexion to neutral only. Ankle plantarflexion WFL. Left Lower Extremity: Hip flexion WFL. Hip abduction WFL. Knee flexion 30 degrees to about 90 degrees. Knee extension -30 degrees. Ankle dorsiflexion to neutral only. Ankle plantarflexion WFL. Strength: Right Upper Extremity: Shoulder flexors 3-5. Shoulder abductors 3-/5. Elbow flexors 3-/5. Elbow extensors 4-/5. Lithographer Helper strong. Left Upper Extremity: Shoulder flexors 3-5. Shoulder abductors 3-/5. Elbow flexors 3-/5. Elbow extensors 4-/5. Lithographer Helper weak but functional Right Lower Extremity: Hip flexors 4-/5. Hip abductors 4-/5. Knee flexors 3-/5. Knee extensors 3-/5. Ankle dorsiflexors 3-/5. Ankle plantarflexors 4-/5. Left Lower Extremity:Hip flexors 4-/5. Hip abductors 4-/5. Knee flexors 3-/5. Knee extensors 3-/5. Ankle dorsiflexors 3-/5. Ankle plantarflexors 4-/5. Bed Mobility/Transfers: Rolling standby assist Supine to sit standby assist Sit to supine standby assist Sit to stand standby assist Stand to sit standby assist Bed to chair standby assist Chair to bed standby assist Gait: Able to tolerate level surface ambulation of 60 feet using front wheeled walker with full weight bearing requiring standby assist. Continues require verbal cueing to improve posture and increase step height and length. Balance: Static Sitting: Good Dynamic Sitting: Fair Static Standing: Fair Dynamic Standing: Poor Special Tests: Mobility Limitations Standardized Measure [facility] 6 clicks Basic Mobility Inpatient Short Form: Raw Score: 6 CMS Score: 100% deficit Assessment: Patient demonstrates functional mobility decline, balance impairment, generalized weakness, and increased risk for falls due to admitting diagnoses. Patient will benefit from shelter facility placement for continued skilled physical therapy services in order to progress mobility level, strength, and balance in preparation for a safe discharge to home. Patient continues to present with clinical signs and symptoms consistent with current/admitting diagnoses that have resulted to mobility limitations, gait instability, generalized weakness, and impairment of motor control as demonstrated by the following impairment level findings: 1. Decreased strength to BUE/LE major muscle groups 2. Impaired sitting/standing balance 3. Impaired activity tolerance 4. Limitation of joint range of motion in B UE/LE 5. Somnolence 6. Swelling in left leg and foot Impairments are continuing to contribute to the following functional limitations: 1. Dependent bed mobility skills 2. Increased dependence with transfers 3. Inability to participate in further mobility assessment due to poor ronn rtness level 4. Inability to return to prior living environment at this time Goals: Goals X1 week 1. Supine-Sit standby assist MET 2. Sit-Supine standby assist MET 3. Sit-Stand contact-guard assist MET 4. Stand-Sit contact-guard assist MET 5. Bed-Chair contact-guard assist MET 6. Chair-Bed contact-guard assist MET 7. Minimal assist gait on level surface with use of FWW for at least 30 feet without report of pain nor dyspnea MET 8. Minimal assist stair negotiation while holding onto B rails for at least 3 steps without report of pain nor dyspnea NOT MET 9. Fair static and dynamic standing balance/tolerance MET DISCHARGE RECOMMENDATIONS: Patient will benefit from shelter facility placement for continued skilled physical therapy services in order to progress mobility level, strength, and balance in preparation for a safe discharge to home. TREATMENT CODE/TIME: ID Thank you for the opportunity to participate in the care of this patient. Guerita Zaragoza PT, DPT, CLT [facility] [place], [place]
== END 2020-06-10 11:37 | disposition skilled nursing facility (03) | DRG 557 ==
LOC: ER 20:30 → MS 21:35
PROVIDERS: General Practice; Internal Medicine; Admitting Provider Family Medicine; Emergency Provider Physician Assistant; PCP Nurse Practitioner Family; Visit Provider Family Medicine
DX: M62.82 Rhabdomyolysis (principal); I63.9 Cerebral infarction, unspecified; I21.A1 Myocardial infarction type 2; I67.89 Other cerebrovascular disease; G93.49 Other encephalopathy; S50.02XA Contusion of left elbow, initial encounter; S50.01XA Contusion of right elbow, initial encounter; S20.314A Abrasion of middle front wall of thorax, initial encounter; W18.39XA Other fall on same level, initial encounter; I10 Essential (primary) hypertension; M81.0 Age-related osteoporosis without current pathological fracture; H90.3 Sensorineural hearing loss, bilateral; R74.8 Abnormal levels of other serum enzymes; I25.2 Old myocardial infarction; R74.01 Elevation of levels of liver transaminase levels; Z66 Do not resuscitate; R26.89 Other abnormalities of gait and mobility; R50.9 Fever, unspecified; I34.0 Nonrheumatic mitral (valve) insufficiency; R13.10 Dysphagia, unspecified; D64.9 Anemia, unspecified; Z86.73 Personal history of transient ischemic attack (TIA), and cerebral infarction without residual deficits; Z87.891 Personal history of nicotine dependence; Y92.007 Garden or yard of unspecified non-institutional (private) residence as the place of occurrence of the external cause
CPT/HCPCS: 36410; 36415; 51701; 70553; 71275; 74177; 80048; 80053; 80061; 80076; 82550; 85027; 87040; 87635; 87798; 93005; 93306; 95819; 96361; 96365; 96366; 96367; 96368; 96375; 96376; 97110; 97163; 97166; 97530; 97535; 99221; 99222; 99223; 99232; 99233; 99239; 99252; 99253; 99285; 70450; 71045; 72125; 73060; 73080; 76700; 81003; 81015; 82140; 83036; 83735; 84100; 84484; 85025; 85610; 85730; 86618; 93010; 93880; J0131; J1644; J1941; J2060

== ENCOUNTER → 2020-06-05 09:09 | Outpatient (BNVA) | payer MEDICARE, BC, SELFPAY | PROVIDERS: PCP Nurse Practitioner Family; Referring Provider Nurse Practitioner Family; Visit Provider Internal Medicine Cardiovascular Disease | DX: R69 Illness, unspecified (principal) ==

== ENCOUNTER → 2020-06-09 07:52 | Outpatient (BNVA) | payer MEDICARE, BC, SELFPAY | PROVIDERS: PCP Nurse Practitioner Family; Referring Provider Nurse Practitioner Family; Visit Provider Psychiatry & Neurology Neurology | DX: R69 Illness, unspecified (principal) ==